=== PATIENT | female | born 1980 | race Hispanic/Latino ===

== ENCOUNTER 2023-11-21 14:34 | Emergency (ER) | payer OTHER, SELFPAY ==
--- NOTE | ~2023-11-21 | CT_ITS ---
EXAMINATION: CT lumbar spine wo con DATE: 11/21/2023 17:47 INDICATION: One day of the lateral lumbar spine pain and midline tenderness TECHNIQUE: Computed tomography (CT) of the lumbar spine was performed without intravenous contrast. A utomated exposure control and iterative reconstruction technique were employed. The dose-length produ ct was 356.57 mGy-cm. COMPARISON: CT abdomen and pelvis dated 09/06/2023 FINDINGS: Alignment is normal. Vertebral body heights are normal. No fracture. Disc heights are normal. There a re disc bulges resulting in mild central canal stenosis at L2-L3 through L4-L5. Mild central disc pro trusion without central canal stenosis at L5-S1. Moderate facet osteoarthritis bilaterally at T11-T12 through L1-L2, on the left at L2-L3 and bilaterally at L5-S1. Mild facet osteoarthritis the remainin g lumbar levels. There is mild neural foraminal stenosis on the right at L2-L3 and bilaterally at L3- L4 and L4-5. 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 Paravertebral soft tissu es are unremarkable. IMPRESSION: 1. Mild lumbar spondylosis. No acute osseous abnormality. Reviewed, dictated and finalized at location A.
[2023-11-21 14:38] VITALS: BP 130/90; PULSE 102; RESP 18; TEMP 36.3; O2SAT 95
--- NOTE | 2023-11-21 16:35 | ED.BACK ---
HPI - Back Pain/Injury General Chief Complaint: Back Pain/Injury Stated Complaint: back pain Time Seen by Provider: 11/21/23 14:50 Source: patient Mode of arrival: ambulatory Limitations: no limitations and language barrier History of Present Illness HPI Narrative: Patient is a 43 y/o female who presents to the ED with c/o back pain. Patient is primarily Sami speaking. Wututu steam gigger was utilized to assist with translation. Patient reports having pain across her lower back and upper buttocks. Reports pain has been intermittent for the past 2 months, but became worse over last few days. She had to leave work early today. Pain worse with movement. She has not tried anything for the pain. Denies abdominal pain, incontinence, numbness. Denies injury. Related Data Allergies Allergy/AdvReac Type Severity Reaction Status Date / Time No Known Allergies Allergy Verified 11/21/23 14:38 Review of Systems Review of Systems: CONSTITUTIONAL: Denies fever, chills, or sweats. GASTROINTESTINAL: Denies incontinence, abdominal pain, nausea, vomiting, or diarrhea. GENITOURINARY: Denies incontinence, dysuria or hematuria. MUSCULOSKELETAL: See HPI. NEUROLOGIC: Denies numbness, or weakness. All systems reviewed & are unremarkable except as noted in HPI and below Exam Narrative: GENERAL: Well appearing, well-nourished, non-toxic, in no acute distress. HEAD: Normocephalic, atraumatic. RESPIRATORY: Airway patent, respirations nonlabored. Clear to auscultation bilaterally, no rales, rhonchi, wheezing. CARDIOVASCULAR: Regular rate and rhythm MUSCULOSKELETAL: Moves all extremities. No gross deformities. Diffuse tenderness throughout lower lumbar paraspinal musculature and diffusely across lumbosacral region. No bony deformities or palpable step-offs. Sensation intact. SKIN: Warm, dry, normal color. NEURO: A&O X3. Speech clear. Cranial nerves II-XII grossly intact. Steady gait. No ataxic movements. PSYCHIATRIC: Appropriate mood and affect. Normal interaction. Course Vital Signs Vital signs: Vital Signs Temperature 97.3 F L 11/21/23 14:38 Pulse Rate 102 H 11/21/23 14:38 Respiratory Rate 18 11/21/23 14:38 Blood Pressure 130/90 11/21/23 14:38 Pulse Oximetry 95 11/21/23 14:38 Oxygen Delivery Room Air 11/21/23 14:38 Temperature 97.3 F L 11/21/23 14:38 Pulse Rate 102 H 11/21/23 14:38 Respiratory Rate 18 11/21/23 14:38 Blood Pressure 130/90 11/21/23 14:38 Pulse Oximetry 95 11/21/23 14:38 Oxygen Delivery Room Air 11/21/23 14:38 MDM - Back Pain/Injury MDM Narrative Medical decision making narrative: Patient?s pain is positional and localized to paraspinal muscles without signs of cord compression or cauda equina. Normal neurologic exams. No red flag symptoms. No fever noted and no significant risk factors for osteomyelitis or spinal epidural abscess. No symptoms or signs to suggest pain is referred from abdominal or source. CT lumbar spine showing mild lumbar spondylosis. No acute fracture. Patient ambulates with a steady gait and is felt to be a reasonable candidate for continued outpatient management. Advised to continue Tylenol/ibuprofen for pain, will rx muscle relaxers for home use. Advised to f/u with PCP for further evaluation. Given return precautions. She agrees w/ plan. D/C in stable condition. Medical Records Attestation: I reviewed the patient's medical records. Lab Data Attestation: I reviewed the patient's lab results. Labs: Lab Results 11/21/23 Range/Units 17:19 POC Urine HCG, Qual Negative POC Ur Preg QC Yes Imaging Data Attestation: I personally reviewed and interpreted this imaging study as follows: Radiologist's impression: ITS Impressions Lumbar Spine CT 11/21/23 18:08 IMPRESSION: 1. Mild lumbar spondylosis. No acute osseous abnormality. Discharge Plan Discharge Clinical Impression: Strain of lumbar region Qualifiers: [place]
[2023-11-21] MEDS: ACETAMINOPHEN 500 MG TABLET 1000 MG PO (16:57)
[2023-11-21] MEDS: KETOROLAC (*BKC) 60 MG/2 ML VIAL IM (16:58)
[2023-11-21 17:21] LABS: BEDSIDEPREGUCG Negative
== END 2023-11-21 18:52 | disposition home or self-care (01) ==
PROVIDERS: Emergency Provider Physician Assistant; PCP Registered Nurse
DX: S39.012A Strain of muscle, fascia and tendon of lower back, initial encounter (principal); M47.816 Spondylosis without myelopathy or radiculopathy, lumbar region; X58.XXXA Exposure to other specified factors, initial encounter
CPT/HCPCS: 72131; 81025; 96372; 99284; A9270; J1885

== ENCOUNTER 2024-02-10 13:43 | Emergency (ER) | payer OTHER, SELFPAY ==
--- NOTE | ~2024-02-10 | XR_ITS ---
XR abdomen/kub 1V 02/10/2024 15:10 INDICATION: Left flank pain TECHNIQUE: KUB COMPARISON: None FINDINGS: Bowel gas pattern is normal. There is no evidence of free air, mass, organomegaly, ascites or obstruction. No abnormal calculi are seen. The bones appear intact. IMPRESSION: 1: No acute abdominal abnormality identified. Reviewed, dictated and finalized at location B.
[2024-02-10 13:55] VITALS: BP 91/71; PULSE 85; RESP 16; TEMP 37; O2SAT 99
--- NOTE | 2024-02-10 14:40 | ED.ABDPAIN ---
HPI - Abdominal Pain General Chief Complaint: Abdominal Pain Stated Complaint: stomach pain Time Seen by Provider: 02/10/24 14:41 Source: patient and RN notes reviewed Mode of arrival: ambulatory Limitations: language barrier (Aboriginal Liaison Officer used) History of Present Illness HPI narrative: 43-year-old female presents with concern for abdominal pain.. Reports several day history of upper and lower abdominal pain and tenderness. She denies any exacerbating or relieving factors. She denies nausea, vomiting, diarrhea, constipation. Reports her last bowel movement was this morning. She reports low back pain. She denies dysuria, frequency, urgency. She denies fever, chills, sweats. Denies any injury. Reports history of cholecystectomy. She reports feeling bloated MD elicited complaint: abdominal pain Related Data Allergies Allergy/AdvReac Type Severity Reaction Status Date / Time No Known Allergies Allergy Verified 02/10/24 13:51 Review of Systems Review of Systems: CONSTITUTIONAL: Denies malaise, chills, sweats, or fever. ENT: Denies rhinorrhea, congestion, sinus pain, otalgia or sore throat. CARDIOVASCULAR: Denies chest pain, palpitations, or edema. RESPIRATORY: Denies cough or dyspnea. GASTROINTESTINAL: Reports generalized abdominal pain. Denies nausea, vomiting, diarrhea, bloody, or mucous stools. GENITOURINARY: Denies dysuria or hematuria. MUSCULOSKELETAL: Denies myalgia. Reports low back pain NEUROLOGIC: Denies headache. All systems reviewed & are unremarkable except as noted in HPI and below PMFSH Comments At time of signature, agree with nursing past medical, surgical, social and family history. There is no relevant family history pertinent to the presenting complaint Exam Narrative: GENERAL: Well-appearing, well-nourished, and in no acute distress. HEAD: Normocephalic, atraumatic. EYES: PERRLA, conjunctivae clear, and EOMI. ENT: Nares clear, turbinates pink, no rhinorrhea or epistaxis. Mucous membranes moist. Oropharynx without edema, erythema, or lesions. Tonsils not enlarged and without exudate. NECK: Supple. No lymphadenopathy CHEST: Speaks in full sentences. No respiratory distress. HEART: Regular rate and rhythm. ABDOMEN: Soft, obese, nondistended, general tenderness, worse in the LLQ. No guarding, rebound tenderness, or rigidity. No pulsatile masses. Bowel sounds present in all four quadrants. No organomegaly. No periumbilical tenderness. No Supra public tenderness or distension. No hernia noted. No surface trauma. SKIN: Warm, dry, no rash. NEURO: Alert and oriented x3. PSYCH: Normal mood and affect Course Course Emergency Course: Discussed going to the emergency room for further evaluation of symptoms, patient will not go to the emergency room this time. I will treat her to the best of my ability and given reasons to go to the emergency room if symptoms worsen or change. Anticipatory guidance given. Patient agrees to follow-up as directed and is aware of reasons to seek care at the emergency department. Portions of this record may have been created with voice recognition software Level of Care: Express Care Visit Vital Signs Vital signs: Vital Signs Temperature 98.6 F 02/10/24 13:55 Pulse Rate 85 02/10/24 13:55 Respiratory Rate 16 02/10/24 13:55 Blood Pressure 91/71 L 02/10/24 13:55 Pulse Oximetry 99 02/10/24 13:55 Oxygen Delivery Room Air 02/10/24 13:55 Temperature 98.6 F 02/10/24 13:55 Pulse Rate 85 02/10/24 13:55 Respiratory Rate 16 02/10/24 13:55 Blood Pressure 91/71 L 02/10/24 13:55 Pulse Oximetry 99 02/10/24 13:55 Oxygen Delivery Room Air 02/10/24 13:55 Reviewed. MDM - Abdominal Pain MDM Narrative Medical decision making narrative: Patient is nontoxic appearing and in no acute distress Differential Diagnosis Differential diagnosis: Likely abdominal pain, acute appendicitis, calculus of kidney, diverticulitis, gastroenteritis a
[2024-02-10 15:10] LABS: EDUAAPPEAR Clear; EDUABILI Negative (Negative); EDUABLOOD Trace (Negative); EDUACOLOR1 Dark; EDUAGLUCOSE Negative (Negative); EDUAKETONE Negative (Negative); EDUALEUKO Negative (Negative); EDUANITRATE Negative (Negative); EDUAPH 6.5; EDUAPROTEIN Negative (Negative)
[2024-02-10 15:45] VITALS: BP 100/80
== END 2024-02-10 15:45 | disposition home or self-care (01) ==
PROVIDERS: Emergency Provider Nurse Practitioner; PCP Registered Nurse
DX: R10.10 Upper abdominal pain, unspecified (principal); R10.30 Lower abdominal pain, unspecified
CPT/HCPCS: 74018; 81003; 99213; G0463

== ENCOUNTER 2024-05-22 16:30 | Emergency (ER) | payer OTHER, SELFPAY ==
--- NOTE | ~2024-05-22 | XR_ITS ---
EXAMINATION: XR abdomen/kub 1V DATE: 05/22/2024 17:15 INDICATION: Generalized abdominal pain. TECHNIQUE: A supine view of the abdomen was obtained. COMPARISON: CT abdomen and pelvis 09/06/2023 FINDINGS: There are no dilated loops of bowel. There is a large volume of stool in the colon. IMPRESSION: 1. Nonobstructive bowel gas pattern. Reviewed, dictated and finalized at location A. CLOSER HELPER
[2024-05-22 16:40] VITALS: BP 116/75; PULSE 87; RESP 16; TEMP 36.9; O2SAT 100
--- NOTE | 2024-05-22 16:58 | ED.ABDPAIN ---
HPI - Abdominal Pain General Chief Complaint: Abdominal Pain Stated Complaint: Abdominal Pain Time Seen by Provider: 05/22/24 16:33 Source: patient Mode of arrival: ambulatory Limitations: no limitations History of Present Illness HPI narrative: Glenna is a 44-year-old female patient presenting to the clinic today with complaints of generalized abdominal pain. She denies any nausea, vomiting, or diarrhea. States last bowel movement was today and very hard. States she tried to go this morning was unable to go so she attempted to go later in the day and it was very hard to pass stool. Is able to pass gas. Last menstrual period was 2 weeks ago. Denies any vaginal discharge or any urinary symptoms. No fevers, chills, or body aches. Related Data Allergies Allergy/AdvReac Type Severity Reaction Status Date / Time No Known Allergies Allergy Verified 05/22/24 16:45 Review of Systems Review of Systems: Pertinent positives per HPI. Patient denies any fever, chills, rash, headache, visual changes, dizziness, cough, runny nose, sore throat, shortness of breath, chest pain, palpitations, nausea, vomiting, diarrhea, constipation, abdominal pain, or any urinary issues. PMFSH Comments At the time of my signature, I reviewed and agree with the nursing past medical, surgical, social, and family history. There is no relevant family history pertinent to the patient complaint. Exam Narrative: General: Well-developed, well nourished, in no apparent distress. Head: Normocephalic, atraumatic. Cardio: Regular rate and rhythm, s1 and s2 normal, no murmur appreciated. Resp: Clear to auscultation bilaterally, no rhonchi, rales, wheezing or rubs. Abdomen: Soft, pliable, bowel sounds present in all quadrants, generalized tender to palpation, no organomegly, no CVAT tenderness. Course Course Emergency Course: Portions of this record may have been created with voice recognition software. Level of Care: Express Care Visit Vital Signs Vital signs: Vital Signs Temperature 36.9 C 05/22/24 16:40 Pulse Rate 87 05/22/24 16:40 Respiratory Rate 16 05/22/24 16:40 Blood Pressure 116/75 05/22/24 16:40 Pulse Oximetry 100 05/22/24 16:40 Oxygen Delivery Room Air 05/22/24 16:40 Temperature 36.9 C 05/22/24 16:40 Pulse Rate 87 05/22/24 16:40 Respiratory Rate 16 05/22/24 16:40 Blood Pressure 116/75 05/22/24 16:40 Pulse Oximetry 100 05/22/24 16:40 Oxygen Delivery Room Air 05/22/24 16:40 Vital signs reviewed MDM - Abdominal Pain MDM Narrative Medical decision making narrative: At the time of visit patient is resting comfortably on the exam table. Patient appears to be nontoxic. Diagnostics: KUB x-ray was performed and shows constipation. Plan: Prescription for bisacodyl, magnesium citrate, and miralax. Supportive measures were discussed with the patient and they voiced understanding discharge instructions and agrees to treatment plan. Return precautions reviewed Differential Diagnosis Differential diagnosis: Likely abdominal pain, acute appendicitis, calculus of kidney, constipation, diverticulitis, endometriosis, gastroenteritis, pancreatitis and small bowel obstruction Imaging Data Radiologist's impression: ITS Impressions Abdomen X-Ray 05/22/24 17:17 IMPRESSION: 1. Nonobstructive bowel gas pattern. Discharge Plan Discharge Clinical Impression: Constipation Qualifiers: Constipation type: unspecified constipation type Qualified Code(s): K59.00 - Constipation, unspecified Patient Disposition: Home, Self-Care Condition: Stable Instructions: Antibiotic Form, Constipation (ED) Additional Instructions: X-ray shows a large amount stool in her colon-constipation Increase fluids and stay well hydrated Increase fiber in your diet. Drink 1/2 bottle of magnesium citrate and take 10mg of bisacodyl-if no results and 1 hour may drink other half of magnesium citrate Take MiraLax daily-mix in 8 oz of water or juice. Follow-up with your doctor later this week or early next week. La radiograf?a muestra olivia gran cantidad de heces en el colon: estre?imiento. Aumente los l?quidos y mant?ngase compa hidratado. Aumenta la fibra en tu dieta. Keshia 1/2 botella de citrato de magnesio y tome 10 mg de bisacodilo; si no hay resultados y 1 hora puede beber la otra mitad de citrato de magnesio. [place] MiraLax diariamente, mezcle en 8 oz de agua o jugo. Mily un seguimiento con paulino m?dico a finales de esta semana o principios de la pr?xima. Patient Language: Cameroonian Prescriptions: New polyethylene glycol 3350 [Miralax] 17 gram powder in packet 17 g PO DAILY 30 Days Qty: 30 0RF magnesium citrate [Citrate of Magnesia] Solution 300 ml PO DAILY PRN (Reason: constipation) 1 Days Qty: 296 0RF bisacodyl 5 mg tablet 10 mg PO ONCE PRN (Reason: constipation) Qty: 2 0RF Follow-up/Referrals: Dannielle,ELVIN Ford [Primary Care Provider] - Time of Disposition: 17:29 Quality NIHSS Nursing Documentation ED NIHSS nursing documentation: reviewed/agree
== END 2024-05-22 17:40 | disposition home or self-care (01) ==
PROVIDERS: Emergency Provider Nurse Practitioner Family; PCP Registered Nurse
DX: K59.00 Constipation, unspecified (principal)
CPT/HCPCS: 74018; 99213; G0463

== ENCOUNTER 2024-06-19 08:22 | Emergency (ER) | payer OTHER, SELFPAY ==
[2024-06-19 08:32] VITALS: BP 116/60; PULSE 87; RESP 16; O2SAT 99
--- NOTE | 2024-06-19 08:39 | ED.EAR ---
HPI - Ear Problem General Chief complaint: Ear Stated complaint: left ear pain Time Seen by Provider: 06/19/24 08:39 Source: patient, RN notes reviewed and old records reviewed Mode of arrival: ambulatory Limitations: no limitations History of Present Illness HPI Narrative: Patient presents with complaints of left ear pain that began 2 days ago. She reports some associated nasal discharge. She denies any fever, chills, sweats. She denies any injury or trauma. She has been taking ibuprofen with minimal results Related Data Allergies Allergy/AdvReac Type Severity Reaction Status Date / Time No Known Allergies Allergy Verified 06/19/24 08:31 Review of Systems Review of Systems: All systems reviewed & are unremarkable except as noted in HPI and below Constitutional: Constitutional: Reports no additional constitutional complaints ENT: Reports system reviewed and no additional complaints, except as documented, Reports otalgia and Reports nasal discharge Cardiovascular: Cardiovascular: Reports no additional cardiovascular complaints Respiratory: Respiratory: Reports no additional respiratory complaints Gastrointestinal: Gastrointestinal: Reports no additional gastrointestinal complaints PMFSH Comments At the time of my signature, I reviewed and agree with the nursing past medical, surgical, social, and family history. There is no relevant family history pertinent to the patient complaint. Exam Const: General: cooperative, no acute distress, alert and awake Orientation/consciousness: oriented to person, oriented to place and oriented to time HENMT: Head: normal to inspection Ears: TM abnormal dull on the right, erythematous on the left and with fluid behind the TM bilateral Resp: Effort & Inspection: normal respiratory effort and able to speak in complete sentences Auscultation: clear to auscultation bilaterally, no crackles, no rales, no rhonchi and no wheezes Cardio: Palpation: normal PMI Rate: regular rate Rhythm: regular rhythm Heart sounds: S1 normal heart sound present and S2 normal heart sound present Neuro: General: oriented to person, oriented to place and oriented to time Cranial nerves: Yes CN's II-XII intact bilaterally Psych: Appearance: grossly normal Thought process: Normal thought process present Insight: Good insight present (Psych) Judgement: Good judgement present (Psych) Course Course Level of Care: Express Care Visit Vital Signs Vital signs: Vital Signs Pulse Rate 87 06/19/24 08:32 Respiratory Rate 16 06/19/24 08:32 Blood Pressure 116/60 06/19/24 08:32 Pulse Oximetry 99 06/19/24 08:32 Oxygen Delivery Room Air 06/19/24 08:32 Pulse Rate 87 06/19/24 08:32 Respiratory Rate 16 06/19/24 08:32 Blood Pressure 116/60 06/19/24 08:32 Pulse Oximetry 99 06/19/24 08:32 Oxygen Delivery Room Air 06/19/24 08:32 Reviewed Medical Decision Making MDM Narrative Medical decision making narrative: History and exam consistent with otitis media. Patient nontoxic appearing, stable for discharge home on p.o. antibiotic therapy with steroid burst Discharge instructions reviewed with patient, as well as provided in writing per nursing staff. The instructions also include specific and strict return/GO TO THE ER as well as f/u information. All questions have been answered, and the patient deny any further questions with discharge and discharge plan. Some parts of this dictation were generated by voice recognition software and may contain typographical and/or grammatical inaccuracies. Differential Diagnosis Differential Diagnosis: Otalgia, otitis externa Medical Records Medical records reviewed: Yes I reviewed the external patient's medical records. Vital Signs Vital Signs: Vital Signs Pulse Rate 87 06/19/24 08:32 Respiratory Rate 16 06/19/24 08:32 Blood Pressure 116/60 06/19/24 08:32 Pulse Oximetry 99 06/19/24 08:32 Oxygen Delivery Room Air 06/19/24 08:32 Pulse Rate 87 06/19/24 08:32 Respiratory Rate 16 06/19/24 08:32 Blood Pressure 116/60 06/19/24 08:32 Pulse Oximetry 99 06/19/24 08:32 Oxygen Delivery Room Air 06/19/24 08:32 reviewed Lab Data Lab results reviewed: Yes I reviewed the patient's lab results. Lab results narrative: reviewed Discharge Plan Discharge Clinical Impression: Otitis media Qualifiers: Otitis media type: suppurative Chronicity: acute Laterality: left Recurrence: not specified as recurrent Spontaneous tympanic membrane rupture: without spontaneous rupture Qualified Code(s): H66.002 - Acute suppurative otitis media without spontaneous rupture of ear drum, left ear Patient Disposition: Home, Self-Care Condition: Stable Instructions: Antibiotic Form, Earache (ED) Additional Instructions: Take medication as prescribed. Follow-up with primary care provider. Emergency department for new or worse symptoms Patient Language: Ukrainian Prescriptions: New amoxicillin-pot clavulanate 875-125 mg tablet 1 tablet PO Q12H Qty: 20 0RF prednisone 50 mg tablet 50 mg PO DAILY Qty: 5 0RF No Action polyethylene glycol 3350 [Miralax] 17 gram powder in packet 17 g PO DAILY 30 Days Qty: 30 0RF magnesium citrate [Citrate of Magnesia] Solution 300 ml PO DAILY PRN (Reason: constipation) 1 Days Qty: 296 0RF bisacodyl 5 mg tablet 10 mg PO ONCE PRN (Reason: constipation) Qty: 2 0RF Follow-up/Referrals: Dannielle,ELVIN Ford [Primary Care Provider] - 2 Weeks Stand Alone Forms: Work/School Release IP Time of Disposition: 08:48
== END 2024-06-19 08:55 | disposition home or self-care (01) ==
PROVIDERS: Emergency Provider Nurse Practitioner Family; PCP Registered Nurse
DX: H66.002 Acute suppurative otitis media without spontaneous rupture of ear drum, left ear (principal)
CPT/HCPCS: 99213; G0463

== ENCOUNTER 2024-06-29 15:38 | Emergency (ER) | payer OTHER, SELFPAY ==
--- NOTE | ~2024-06-29 | XR_ITS ---
XR sacrum coccyx min 2V Ordering provider: Felisha Salazar PA-C History: . fall down stairs, tailbone pain . Comparison: June 29, 2024 FINDINGS: BONES: Possible lucency in the coccyx. Otherwise, No dislocation. JOINTS: The sacroiliac joint spaces are normal. SOFT TISSUES: Normal. IMPRESSION: Lucency in the coccyx which may indicate a fracture. Clinical correlation and follow-up advised Reviewed, dictated and finalized at location A. ONAL COUNSELOR IMPRESSION: Lucency in the coccyx which may indicate a fracture. Clinical correlation and f ollow-up advised
--- NOTE | ~2024-06-29 | XR_ITS ---
XR hip RT 2V w AP pelvis Ordering provider: Bhavani Bass APRN History: . hip pain, tailbone pain s/p fall . Comparison: None. FINDINGS: BONES: No acute fracture or dislocation. HIP JOINT SPACES: Normal. SACROILIAC JOINT SPACES/LUMBAR SPINE: The sacroiliac joint spaces are normal. Normal visualized lower lumbar spine. PUBIC SYMPHYSIS: Normal. SOFT TISSUES: Normal. IMPRESSION: No acute osseous abnormality pelvis and right hip. Reviewed, dictated and finalized at location A. [employer] PLACEMENT EQUIPMENT OPERATOR
--- OUTSIDE RECORDS SUMMARY | 2024-06-29 15:40 | XMS_ITS | Data Portability ---
Author Organization [facility] YAHIRJaimee Niet[place]Cypress Landing H Address [address] [place] [address] Care Team Providers Care Bolt Machine Operator Name Role Phone DANNIELLELILIANA Primary Care Provider Assessment No assessment recorded. Plan of Treatment Reminders Order Date Submit Date Provider Last Modified By Organization Details Last Modified Time Details Appointments None record ed. Lab cytolo gy report , thin prep, smear or scrapi ng, cervic al or vagina l 2023 024 [facility], [address] [place] [address], [facility] [address], [place], [address], 4 13:11:17 urinal ysis, dipsti ck 2023 024 ALECIA In-Office Order, Internal Use Only DO Not Attach Compendium DO Not Attach Compendium, Do Not Delete/merge, [id number] 15:29:25 cultur e, urine 2023 024 [facility], [address] [place] [address], [address], [place], [address], 4 03:36:53 urinal ysis, dipsti ck 2023 024 [email or web address] In-Office Order, Internal Use Only DO Not Attach Compendium DO Not Attach Compendium, Do Not Delete/merge, [id number] 16:30:33 cultur e, urine 2023 024 [facility], [address] [place] [address], [address], [place], [address], 13:12:17 Referral None record ed. Procedures None record ed. Surgeries None record ed. Imaging None record ed. Medication Orders Zithro max Z-Ramírez 250 mg tablet 2023 [place] [employer] [facility], [address] [place] [address], [id number], 4 14:43:55 Medrol (Ramírez) 4 mg tablet s in a dose pack 2023 [facility], [address] [place] [address], [id number], 4 14:43:56 meloxi cam 15 mg tablet 2023 [place] [facility], [address] [place] [address], [id number], 4 14:43:54 meloxi cam 15 mg tablet 2023 [place] [employer] [facility], [address] [place] [address], [id number], 4 17:59:25 Macrob id 100 mg capsul e 2023 [place] [employer] [facility], [address] [place] [address], [id number], 4 16:48:18 lorata dine 10 mg tablet 2023 [place] [employer] [facility], [address] [place] [address], [id number], 4 15:31:28 flutic asone propio vernon 50 mcg/ac tuatio n nasal spray, suspen deja 2023 [place] [employer] [facility], [address] [place] [address], [id number], 15:31:34 meloxi cam 15 mg tablet [facility]23 [facility], [address] [place] [address], [id number], 15:31:28 cyclob enzapr ine 10 mg tablet 2023 024 [facility], [address] [place] [address], [id number], 16:08:59 Macrob id 100 mg capsul e [facility] [address] [place] [address], [id number], 16:33:12 Patient TargetsNo targets recorded. Patient Instructions Encounter Date Encounter Id Patient Instructions Last Modified By Organization Details Last Modified Time 09/29/2023 [id number] espondil lisis y espondilolistesis: ejercicios - [spondylolysis and spondylolisthesis: exercises] yarauz Not available 09/29/2023 16:32:41 Cuando sona ghosh de peso: Instrucciones de cuidado - [When You Want to Lose Weight: Care Instructions] [email or web address] Not available 09/29/2023 16:30:31 A healthy lifest yle: care instructions [email or web address] Not available 09/29/2023 16:30:31 dolor abdominal: instrucciones de cuidado - [abdominal pain: care instructions] [email or web address] Not available 09/29/2023 16:30:31 increase water i ntake general hygiene measures take all your medicines as directed if symptoms do not improve or resolve make a follow up appointment stretching exercises 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 [employer] ice to back or heat to low back as necessary may use NSAIDs such as Ibuprofen with food as necessary if no contraindications [email or web address] Not available 09/29/2023 16:31:29 11/17/2023 [id number] dolor al orinar (disuria): instrucciones de cuidado - [painful urination (dysuria): care instructions] [email or web address] Not available 11/17/2023 15:23:41 A healthy lifest yle: care instructions [email or web address] Not available 11/17/2023 15:23:41 sinusitis cr chantel: instrucciones de cuidado - [chronic sinusitis: care instructions] [email or web address] Not available 11/17/2023 15:23:41 cuidado de la es palda y prevenci n de lesiones: instrucciones de cuidado - [back care and preventing injuries: care instructions] [email or web address] Not available 11/17/2023 15:23:41 enfermedad de re flujo gastroesof gico (GERD): instrucciones de cuidado - [gastroesophageal reflux disease (GERD): care instructions] [email or web address] Not available 11/17/2023 15:25:31 12/19/2023 [id number] A healthy lifest yle: care instructions [email or web address] Not available 12/19/2023 17:19:24 cuidado de la es palda y prevenci n de lesiones: instrucciones de cuidado - [back care and preventing injuries: care instructions] [email or web address] Not available 12/19/2023 17:19:24 artritis: instrucciones de cuidado - [arthritis: care instructions] [email or web address] Not available 12/19/2023 17:19:24 artritis de marii ra: ejercicios - [hip arthritis: exercises] [email or web address] Not available 12/19/2023 17:19:24 artritis de cuel lo: ejercicios - [neck arthritis: exercises] yarauz Not available 12/19/2023 17:19:23 artritis de pie: ejercicios - [foot arthritis: exercises] [email or web address] Not available 12/19/2023 17:19:24 artritis de la p lolita baja de la espalda: ejercicios - [low back arthritis: exercises] [email or web address] Not available 12/19/2023 17:19:24 Lose weight stretching exercises avoid heavy lifting or activities that increase pain level ice/heat as necessary yarauz Not available 12/19/2023 17:19:07 02/03/2024 [id number] A healthy lifest yle: care instructions [email or web address] Not available 02/03/2024 17:30:03 You had your pap smear completed today. You should have a well woman exam each year. If your pap smear comes back normal and does not show any HPV ( human papilloma virus), you will not need another pap smear for 5 years. Do NOT douche as it disturbs the natural balance of bacteria in the vagina and can cause infection. Avoid scented soaps or lotions. Use a basic unscented soap for only the outer skin around your vagina. Wear cotton underwear, avoid thongs, avoid spandex, leggings and wear panty liners daily. You can try probiotics. Use a condom with EVERY sexual encounter to minimize your risk for sexually transmitted infection and unplanned . [email or web address] Not available 02/03/2024 17:13:47 03/20/2024 [id number] vacuna contra la influenza (gripe): instrucciones de cuidado - [influenza (flu) vaccine: care instructions] [email or web address] Not available 03/20/2024 16:27:47 A healthy lifest yle: care instructions [email or web address] Not available 03/20/2024 16:24:51 Sinusitis aguda: Instrucciones de cuidado - [Acute Sinusitis: Care Instructions] [email or web address] Not available 03/20/2024 16:24:51 cuidado de la es palda y prevenci n de lesiones: instrucciones de cuidado - [back care and preventing injuries: care instructions] [email or web address] Not available 03/20/2024 16:24:51 artritis: instrucciones de cuidado - [arthritis: care instructions] [email or web address] Not available 03/20/2024 16:24:51 artritis de marii ra: ejercicios - [hip arthritis: exercises] [email or web address] Not available 03/20/2024 16:24:50 artritis de cuel lo: ejercicios - [neck arthritis: exercises] [email or web address] Not available 03/20/2024 16:24:50 artritis de pie: ejercicios - [foot arthritis: exercises] [email or web address] Not available 03/20/2024 16:24:50 artritis de la p lolita baja de la espalda: ejercicios - [low back arthritis: exercises] [email or web address] Not available 03/20/2024 16:24:51 aprenda acerca d el peso saludable - [learning about healthy weight] [email or web address] Not available 03/20/2024 16:24:51 ndice de masa corporal: instrucciones de cuidado - [body mass index: care instructions] [email or web address] Not available 03/20/2024 16:24:51 calcium 600mg 1- 2 daily with vitamin D3 1000 yarauz Not available 03/20/2024 16:22:41 Lose weight stretching exercises avoid heavy lifting or activities that increase pain level ice/heat as necessary influenza vaccine yarauz Not available 03/20/2024 16:19:53 Reason for Referral None Reported. Results Created Date Observation Date Name Description Value Unit Range Abnormal Flag Note LastModifiedBy Organization Detail LastModifiedTime 09/29/19 24 10/04/2023 URINE CULTU RE, JOSEPH NE urine culture, routine FINAL REPORT abnormal Not Available [facility] ([facility]) [address] [facility] [address], [place], [address], 10/04/2023 13:12:17 09/29/19 24 10/04/2023 URINE CULTU REJOSEPH NE result 1 ESCHER ICHIA COLI abnormal 25,00 0-50, 000 colon y formi ng units per mL Cefaz carlitos <=4 ug/mL Cefaz carlitos with an JAY JAY <=16 predi cts susce ptibi lity to the oral agent s cefac monty, cefdi cherry, cefpo doxim e, cefpr ozil, cefur oxime , cepha lexin , and lorac arbef when used for thera py of uncom plica eliz urina ry tract infec tions due to E. coli, Klebs iella pneum oniae , and Prote us mirab ilis. Not Available [facility] ([facility]) [address] [facility] [facility] [address], [place], [address], 10/04/2023 13:12:17 09/29/19 24 10/04/2023 URINE CULTU REJOSEPH NE antimicrobia l susceptibili ty COMMEN T S = Susce ptibl e; I = Inter media te; R = Resis tant P = Posit paulette; N = Negat paulette MICS are expre ssed in micro grams per mL Antib iotic RSLT# 1 RSLT# 2 RSLT# 3 RSLT# 4 Amoxi cilli n/Cla vulan ic Acid S Ampic illin S Cefep nadira S Ceftr iaxon e S Cefur oxime S Ertap enem S Genta micin S Imipe nem S Levof loxac in I Merop enem S Nitro furan toin S Piper acill in/Ta zobac kimball S Tetra cycli ne R Tobra mycin S Trime thopr im/Gilliam lfa R Not Available [facility] ([facility]) [address] [facility] [facility] [address], [place], [address], 10/04/2023 13:12:17 09/29/19 24 09/29/2023 urina lysis , dipst ick Leukocytes Small Not Available In-Offi ce Order Internal Use Only DO Not Attach Compendium DO Not Attach Compendium, Do Not Delete/merge, [id number] 09/29/2023 16:00:01 09/29/19 24 09/29/2023 urina lysis , dipst ick Nitrite negati ve Not Available In-Office Order Internal Use Only DO Not Attach Compendium DO Not Attach Compendium, Do Not Delete/merge, [id number] 09/29/2023 16:00:01 09/29/19 24 09/29/2023 urina lysis , dipst ick Urobilinogen .2 Not Available In-Of fice Order Internal Use Only DO Not Attach Compendium DO Not Attach Compendium, Do Not Delete/merge, 09/29/2023 16:00:01 09/29/19 24 09/29/2023 urina lysis , dipst ick Protein Negati ve Not Available In-Office Order Internal Use Only DO Not Attach Compendium DO Not Attach Compendium, Do Not Delete/merge, [id number] 09/29/2023 16:00:01 09/29/19 24 09/29/2023 urina lysis , dipst ick pH 6.0 Not Available In-Office Order Internal Use Only DO Not Attach Compendium DO Not Attach Compendium, Do Not Delete/merge, 09/29/2023 16:00:01 09/29/19 24 09/29/2023 urina lysis , dipst ick Blood Non-He molyze d: Trace Not Available In-Office Order Internal Use Only DO Not Attach Compendium DO Not Attach Compendium, Do Not Delete/merge, 09/29/2023 16:00:09/29/19 24 09/29/2023 urina lysis , dipst ick Specific [place] 1.025 Not Available In-Off ice Order Internal Use Only DO Not Attach Compendium DO Not Attach Compendium, Do Not Delete/merge, 09/29/2023 16:00:01 09/29/19 24 09/29/2023 urina lysis , dipst ick Ketone Negati ve Not Available In-Office Order Internal Use Only DO Not Attach Compendium DO Not Attach Compendium, Do Not Delete/merge, 09/29/2023 16:00:01 09/29/19 24 09/29/2023 urina lysis , dipst ick Bilirubin Negati ve Not Available In-Office Order Internal Use Only DO Not Attach Compendium DO Not Attach Compendium, Do Not Delete/merge, 09/29/2023 16:00:01 09/29/19 24 09/29/2023 urina lysis , dipst ick Glucose Negati ve Not Available In-Office Order Internal Use Only DO Not Attach Compendium DO Not Attach Compendium, Do Not Delete/merge, 09/29/2023 16:00:01 09/29/19 24 09/29/2023 urina lysis , dipst ick Appearance Clear Not Available In-Offi ce Order Internal Use Only DO Not Attach Compendium DO Not Attach Compendium, Do Not Delete/merge, 09/29/2023 16:00:01 09/29/19 24 09/29/2023 urina lysis , dipst ick Color Yellow Not Available In-Office Order Internal Use Only DO Not Attach Compendium DO Not Attach Compendium, Do Not Delete/merge, 09/29/2023 16:00:01 11/17/19 24 11/19/2023 URINE CULTU RE, ROUTI NE urine culture, routine FINAL REPORT Not Available [facility] ([facility]) [address], [place], [address], 11/19/2023 03:36:52 11/17/19 24 11/19/2023 URINE CULTU RE, ROUTI NE result 1 NO GROWTH Not Available [facility] ([facility]) [address], [place], [address], 11/19/2023 03:36:52 11/17/19 24 11/17/2023 urina lysis , dipst ick Leukocytes Negati ve Not Available In-Office Order Internal Use Only DO Not Attach Compendium DO Not Attach Compendium, Do Not Delete/merge, [id number] 11/17/2023 15:13:43 11/17/19 24 11/17/2023 urina lysis , dipst ick Nitrite negati ve Not Available In-Office Order Internal Use Only DO Not Attach Compendium DO Not Attach Compendium, Do Not Delete/merge, 11/17/2023 15:13:43 11/17/19 24 11/17/2023 urina lysis , dipst ick Urobilinogen .2 Not Available In-Of fice Order Internal Use Only DO Not Attach Compendium DO Not Attach Compendium, Do Not Delete/merge, [id number] 11/17/2023 15:13:43 11/17/19 24 11/17/2023 urina lysis , dipst ick Protein Negati ve Not Available In-Office Order Internal Use Only DO Not Attach Compendium DO Not Attach Compendium, Do Not Delete/merge, [id number] 11/17/2023 15:13:43 11/17/19 24 11/17/2023 urina lysis , dipst ick pH 7.0 Not Available In-Office Order Internal Use Only DO Not Attach Compendium DO Not Attach Compendium, Do Not Delete/merge, [id number] 11/17/2023 15:13:43 11/17/19 24 11/17/2023 urina lysis , dipst ick Blood Non-He molyze d: Trace Not Available In-Office Order Internal Use Only DO Not Attach Compendium DO Not Attach Compendium, Do Not Delete/merge, 11/17/2023 15:13:43 11/17/19 24 11/17/2023 urina lysis , dipst ick Specific [place] 1.015 Not Available In-Off ice Order Internal Use Only DO Not Attach Compendium DO Not Attach Compendium, Do Not Delete/merge, 11/17/2023 15:13:43 11/17/19 24 11/17/2023 urina lysis , dipst ick Ketone Negati ve Not Available In-Office Order Internal Use Only DO Not Attach Compendium DO Not Attach Compendium, Do Not Delete/merge, 11/17/2023 15:13:43 11/17/19 24 11/17/2023 urina lysis , dipst ick Bilirubin Negati ve Not Available In-Office Order Internal Use Only DO Not Attach Compendium DO Not Attach Compendium, Do Not Delete/merge, 11/17/2023 15:13:43 11/17/19 24 11/17/2023 urina lysis , dipst ick Glucose Negati ve Not Available In-Office Order Internal Use Only DO Not Attach Compendium DO Not Attach Compendium, Do Not Delete/merge, 11/17/2023 15:13:43 11/17/19 24 11/17/2023 urina lysis , dipst ick Appearance Clear Not Available In-Offi ce Order Internal Use Only DO Not Attach Compendium DO Not Attach Compendium, Do Not Delete/merge, 11/17/2023 15:13:43 11/17/19 24 11/17/2023 urina lysis , dipst ick Color Yellow Not Available In-Office Order Internal Use Only DO Not Attach Compendium DO Not Attach Compendium, Do Not Delete/merge, 11/17/2023 15:13:43 02/03/20 24 02/06/2024 SPECI MEN STATU S REPOR T specimen status report TNP Test not perfo rmed. No serum gel recei joel. TEST: 27589 5 RPR, Rfx Qn RPR/[place] [address] 5 HIV Ab/p2 4 Ag with Refle x CONTA CTED [facility] AT YOUR FACIL ITY ON 02/05 . Not Available [facility] ([facility]) [address] [place], [address], 02/06/2024 13:09:47 02/03/20 24 02/06/2024 RPR, RFX QN RPR/C ONFIR M TP RPR - Test not perfo rmed. No serum gel recei joel. CONTA CTED [facility] AT YOUR FACIL ITY ON 02/05 . Not Available [facility] ([facility]) [address], [place], [address], 02/06/2024 13:09:47 02/03/20 24 02/06/2024 HIV AB/P2 4 AG WITH REFLE X HIV Ab/P24 Ag screen - Test not perfo rmed. No serum gel recei joel. CONTA CTED [facility] AT YOUR FACIL ITY ON 02/05 . Not Available [facility] ([facility]) [address], [place], [address], 02/06/2024 13:09:48 02/03/20 24 02/08/2024 IGP, APTIM A HPV, RFX 16/18 ,45 HPV aptima NEGATI VE negati ve This nucle ic acid ampli ficat ion test detec ts fourt een high- risk HPV types (16,1 8,31, 33,35 ,39,4 5,51, 52,56 ,58,5 9,66, 68) witho ut diffe renti ation . Not Available [facility] ([facility]) [address], [place], [address], 02/10/2024 13:11:17 02/03/20 24 02/10/2024 IGP, APTIM A HPV, RFX 16/18 ,45 diagnosis: COMMEN T NEGAT PAULETTE FOR INTRA EPITH ELIAL LESIO N OR SHAILESH ESPINAL . Not Available [facility] ([facility]) [address], [place], [address], 02/10/2024 13:11:17 02/03/2002/10/2024 IGP, APTIM A HPV, RFX 16/18 ,45 specimen adequacy: CHRIST Winn Satis facto ry for evalu ation . Endoc ervic al and/o r squam ous metap lasti c cells (endo cervi sergio compo nent) are prese nt. Not Available [facility] ([facility]) [address], [place], [address], 02/10/2024 13:11:17 02/03/2002/10/2024 IGP, APTIM A HPV, RFX 16/18 ,45 clinician provided ICD10: CHRIST Winn Z12.4 Not Available [facility] ([facility]) [address], [place], [address], 02/10/2024 13:11:17 02/03/2002/10/2024 IGP, APTIM A HPV, RFX 16/18 ,45 performed by: CHRIST Nair ams, Cytot drew winn (ASCP ) Not Available [facility] ([facility]) [address], [place], [address], 02/10/2024 13:11:17 02/03/2002/10/2024 IGP, APTIM A HPV, RFX 16/18 ,45 . . Not Available [facility] ([facility]) [address] [place], [address], 02/10/2024 13:11:17 02/03/2002/10/2024 IGP, APTIM A HPV, RFX 16/18 ,45 note: CHRIST Winn The Pap smear is a scree nigel test desnéstor garza to aid in the detec tion of sherita ligna nt and malig nant condi tions of the uteri ne cervi x. It is not a diagn ostic proce dure and shoul d not be used as the sole means of detec ting cervi sergio cance r. Both false -posi tive and false -nega tive repor ts do occur . Not Available [facility] ([facility]) [address], [place], [address], 02/10/2024 13:11:17 02/03/20 24 02/10/2024 IGP, APTIM A HPV, RFX 16/18 ,45 test methodology: COMMEN T This liqui d based ThinP rep(R ) pap test was linnea garza with the use of an image guide emi canela Not Available [facility] ([facility]) [address], [place], [address], 02/10/2024 13:11:17 02/03/20 24 02/10/2024 IGP, APTIM A HPV, RFX 16/18 ,45 HPV genotype reflex COMMEN T Crite daisy not met, HPV Genot ype not perfo rmed. Not Available [facility] ([facility]) [address], [place], [address], 02/10/2024 13:11:17 09/06/19 24 09/06/2023 CT, abdom en + pelvi s, w/ contr ast No observ ation record ed. [address], [address], 09/29/2023 16:08:59 11/21/19 24 11/21/2023 CT, lumba r spine , w/o contr ast No observ ation record ed. [address], [address], 12/19/2023 17:44:21 02/10/20 24 02/10/2024 XR, kidne y + urete r + bladd er No observ ation record ed. [address], [address], 02/10/2024 16:49:21 05/22/19 25 05/22/2024 XR, abdom en No observ ation record ed. [facility] [address], [place], [address], 06/07/2024 16:58:48 06/26/19 25 06/21/2024 MAMMO , scree nigel, bilat eral No observ ation record ed. [email or web address] [facility] [address], [place], [address], 06/27/2024 16:13:51 Result Notes None recorded. Problems Name Problem SNOMED Code Status Onset Date Resolution Date Notes Provider Name and Address Organization Details Recorded Time Body mass index 30+ - obesity 576085612 Completed 201710/29/2020 INESSA Mehta Attn: Navin g,[address] [facility], [place], [address], [place] [facility] 3 17:13:59 Menstrua l cramp 349529226 Completed 201702/01/2019 Jackeline Causey RN [place], [place] [facility] 9 14:28:07 Candidia sis 78514044 Completed 02/01/2019 [place]eline [place] [facility] 9 14:28:15 Impaired glucose toleranc e 9891191 Active 2020 Jackeline [place] [facility] 3 12:45:12 Steatosi s of liver 445273371 Active 2020 Jackeline [place] [facility] 3 12:45:12 Vitamin D deficien cy 84705043 Completed 02/01/2019 INESSA Mehta Attn: Accountin g,[address] [facility], [place], [address], [place] [facility] 2 16:40:46 Vitamin D deficien cy 48206858 Active 2020 Jackeline [place] [facility] 3 12:45:12 Chronic maxillar y sinusiti s 97427519 Active 2021 Jackeline [place] [facility] 3 12:45:12 Glucose toleranc e test outside referenc e range 561407119 Completed 02/01/2019 [place]eline [place] [facility] [place] 14:27:59 Glucose toleranc e test outside referenc e range 574511142 Completed De[place]y [place] [facility] 5 17:31:01 Body mass index 30+ - obesity 127434478 Active 2022 Liliana Spicer [facility] Attn: Accountin g,[address] [facility], [place], [address], [place] [facility] 3 17:13:59 Mixed hyperlip idemia 109528119 Active 2022 Liliana Spicer [facility] Attn: Accountin g,[address] [facility], [place], [address], [place] [facility] 3 17:13:59 Chronic headache disorder 410909739 Active 2022 Liliana Spicer [facility] Attn: Accountin g,[address] [facility], [place], [address], [place] [facility] 3 17:13:59 History of calculus of kidney 679563553 Active 2022 Liliana Spicer [facility] Attn: Accountin g,[address] [facility], [place], [address], [place] [facility] 3 17:13:59 Obesity 951264773 Active 2022 Liliana Spicer [facility] Attn: Accountin g,[address] [facility], [place], [address], [place] [facility] 3 17:13:59 Mastodyn ia of bilatera l breasts 27500893936 096298 Active 2022 [facility] Attn: Navin diego,[address] [place], [address], [place] [facility] 3 17:13:58 Gastroes ophageal reflux disease 764899096 Active Jackeline Cause[place] [facility] 3 12:45:12 Gastroes ophageal reflux disease 293593544 Completed De[place]y [place] [facility] 5 17:31:01 Vitamin D deficien cy 41437874 Completed De[place] [facility] 5 17:31:01 Bacteria l vaginosi s 255589090 Completed 202309/29/2023 Removal Reason: resolved Liliana Spicre [facility] Attn: Navin diego,[address] [place], [address], [place] [facility] 4 16:11:19 Thoracic spondylo sis 155049280 Active 2023 [facility] Attn: Navin diego,[address] [place], [address], [place] [facility] 4 17:00:42 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 031168289 Active 2023 Jackeline [place] [facility] 4 15:51:09 Term pregnanc y delivere d 37407466 Completed 02/01/2019 [place] [facility] [place] 14:27:46 Term pregnanc y delivere d 76516319 Completed De[place] [facility] 5 17:31:01 Postpart [facility] 59593336 Completed 02/01/2019 [place] [facility] [place] 14:28:18 Postpart [facility] 42642825 Completed De[place] [facility] 5 17:31:01 Acute urinary tract infectio n 353263867 Completed 02/01/2019 Jackeline Causey RN null, [facility] 9 14:28:11 Obstruct ion of milk duct 686326106 Completed 02/01/2019 Jackeline Causey RN null, [facility] 9 14:27:50 Obesity 856922412 Completed 201608/22/2017 Liliana Spicer [facility]- Attn: Navin diego,[address] [facility], [place], [address], [facility] 3 17:13:59 Spasm of back muscles 809416308 Completed 201602/01/2019 Jackeline Causey RN null, [facility] 9 14:27:41 Headache 93992639 Completed 201602/01/2019 Jackeline Causey RN null, [facility] 4 15:50:47 Problem Notes None recorded. Procedures Surgical History Date Name Laterality Status Provider Name and Address Organization Details Recorded Time 02/03/20 24 Date of Last Pap Smear completed OSCAR CHAND NP Attn: Accounting,[address] [facility], [place], [address], [facility] 02/03/2024 17:28:55 03/21/20 23 Date of Last Mammogram completed Jackeline Causey RN [facility] 03/20/2024 15:38:49 01/14/20 23 Dilation and Curettage completed Jackeline Causey RN [facility] 01/14/2023 13:00:05 10/18/19 18 Control Implant Removal completed Sujata Dillard PA-C Attn: Accounting,[address] [facility], [place], [address], [facility] 10/17/2017 14:44:00 09/10/19 15 Control Implant Insertion completed Deonte Bey [facility] 09/09/2014 17:35:00 04/25/19 03 Cholecystectomy completed Sarita Potts MA [place] - [facility] 09/09/2014 15:54:11 Imaging Results Imaging Date Name Status [facility] Details LastModified Time 09/06/2023 CT, abdomen + pelvis, w/ contrast completed [address] [place] [address], [address], 09/29/2023 16:08:59 11/21/2023 CT, lumbar spine, w/o contrast completed [address], [address], 12/19/2023 17:44:21 02/10/2024 XR, kidney + ureter + bladder completed [address], [address], 02/10/2024 16:49:21 05/22/2024 XR, abdomen completed [address], [address], 06/07/2024 16:58:48 06/21/2024 MAMMO, screening, bilateral completed [email or web address] [facility] [address] [place], [address], 06/27/2024 16:13:51 Procedure Notes None recorded. Medical Equipment None Reported. Allergies No known drug allergies Medications Name Sig Start Date Stop Date Status Note LastModified by Organization Details LastModified Time Prescriptio n - Clarificati on 08/22 completed Not Available Not Available Not Available multivitami n tablet Take 1 tablet every day by oral route. 07/16 completed Not Available Not Available Not Available cyclobenzap rine 10 mg tablet TAKE ONE TABLET BY MOUTH TWICE DAILY FOR MUSCLE RELAXER 03/20 completed Not Available Not Available Not Available metformin 500 mg tablet Take 1 tablet every day by oral route. 10/29 completed [facility] Not Available Not Available Not Available azelastine 0.05 % eye drops INSTILL 1 DROP INTO AFFECTED EYE(S) BY OPHTHALMI C ROUTE 2 TIMES PER DAY 01/07 completed Not Available Not Available Not Available cetirizine 10 mg tablet Take 1 tablet every day by oral route. 03/17 completed Not Available Not Available Not Available azithromyci n 250 mg tablet TAKE 2 TABLETS (500 MG) BY ORAL ROUTE ONCE DAILY FOR 1 DAY THEN 1 TABLET (250 MG) BY ORAL ROUTE ONCE DAILY FOR 4 DAYS active Not Available Not Available No t Available ibuprofen 800 mg tablet TAKE 1 TABLET BY MOUTH THREE TIMES DAILY NEEDED FOR CRAMPS 09/28 completed Not Available Not Available Not Available fluconazole 150 mg tablet Take 1 tablet by oral route. 02/01 completed Not Available Not Available Not Available hydrocodone 5 mg-acetamin ophen 325 mg tablet TOME ESCOBAR TABLETA CADA CUATRO HORAS CUANDO SEA NECESARIO 03/21 completed Not Available Not Available Not Available meloxicam 15 mg tablet Take 1 tablet every day by oral route, for back pain. active Not Available Not Available No t Available Formula tablet Take 1 tablet every day by oral route. 08/22 completed Not Available Not Available Not Available clotrimazol e 1 % vaginal cream Insert 1 applicato rful every day by vaginal route at bedtime. 06/26 completed Not Available Not Available Not Available topiramate 25 mg tablet Take 1 tablet twice a day by oral route. 06/02 completed Not Available Not Available Not Available metronidazo le 500 mg tablet TAKE ONE TABLET BY MOUTH TWICE DAILY FOR 7 DAYS 06/21 completed Not Available Not Available Not Available acetaminoph en 300 mg-codeine 30 mg tablet TAKE ONE TABLET BY MOUTH EVERY TWELVE HOURS NEEDED HEADACHE 06/02 completed Not Available Not Available Not Available omeprazole 40 mg capsule,del ayed release TAKE ONE CAPSULE BY MOUTH EVERY DAY FOR STOMACH 03/21 completed Not Available Not Available Not Available ketorolac 30 mg/mL (1 mL) injection solution Inject 1 mL every 6 hours by intramusc ular route. 06/26 completed Not Available Not Available Not Available Macrobid 100 mg capsule Take 1 capsule every 12 hours by oral route for 10 days, for infection . 12/18 completed Not Available Not Available Not Available oxycodone-a cetaminophe n 5 mg-325 mg tablet active Not Available Not Available No t Available dicyclomine 20 mg tablet TAKE ONE TABLET BY MOUTH THREE TIMES DAILY FOR STOMACH 06/02 completed Not Available Not Available Not Available cephalexin 500 mg capsule Take 1 capsule every 12 hours by oral route for 10 days. 09/28 completed Not Available Not Available Not Available pantoprazol e 40 mg tablet,sabrina yed release TAKE 1 TABLET BY MOUTH AT BEDTIME active Not Available Not Available No t Available ferrous sulfate 325 mg (65 mg iron) tablet Take 1 tablet twice a day by oral route. 2014 active Not Available Not Available Not Avai lable ranitidine 150 mg tablet Take 1 tablet twice a day by oral route. 06/08 completed Not Available Not Available Not Available fluoxetine 10 mg capsule TAKE ONE CAPSULE BY MOUTH EVERY DAY 06/21 completed Not Available Not Available Not Available ibuprofen 200 mg tablet Take 1 tablet every 6 hours by oral route. 05/18 completed x3 Not Available Not Available Not Available omeprazole 20 mg capsule,del ayed release Take 1 capsule twice a day by oral route before meals. 03/17 completed Not Available Not Available Not Available ergocalcife rol (vitamin D2) 1,250 mcg (50,000 unit) capsule TAKE ONE CAPSULE BY MOUTH EVERY WEEK 03/21 completed Not Available Not Available Not Available ibuprofen 600 mg tablet Take 1 tablet 3 times a day by oral route as needed for 30 days. 06/02 completed Not Available Not Available Not Available Pepcid 20 mg tablet Take 1 tablet twice a day by oral route. 2014 active Not Available Not Available Not Avai lable polyethylen e glycol 3350 17 gram/dose oral powder Take 17 g every day by oral route. 10/29 completed Not Available Not Available Not Available methylpredn isolone 4 mg tablets in a dose pack take as directed on package active Not Available Not Available No t Available norethindro ne (contracept paulette) 0.35 mg tablet Take 1 tablet every day by oral route. 2014 active Not Available Not Available Not Avai lable fluticasone propionate 50 mcg/actuati on nasal spray,suspe nsion [place] 1 spray every day by intranasa l route. 2023 active Not Available Not Available Not Avai lable medroxyprog esterone 150 mg/mL intramuscul ar suspension inject ONE ML by intramusc ular route every THREE MONTHS 03/02 completed Not Available Not Available Not Available loratadine 10 mg tablet Take 1 tablet every day by oral route. 2023 active Not Available Not Available Not Avai lable naproxen 500 mg tablet TAKE ONE TABLET BY MOUTH TWICE DAILY 09/28 completed Not Available Not Available Not Available Sprintec (28) 0.25 mg-35 mcg tablet Please specify direction s, refills and quantity 03/17 completed Not Available Not Available Not Available Vitamin D3 25 mcg (1,000 unit) tablet Take 1 tablet by oral route. 11/16 completed Not Available Not Available Not Available cyclobenzap rine 5 mg tablet TAKE 1 TABLET BY MOUTH THREE TIMES DAILY NEEDED FOR MUSCLE SPASM 03/20 completed Not Available Not Available Not Available Ciprodex 0.3 %-0.1 % ear drops,suspe nsion INSTILL 4 DROPS INTO AFFECTED EAR(S) BY OTIC ROUTE 2 TIMES PER DAY FOR 7 DAYS 03/17 completed Not Available Not Available Not Available Tri-Prevife m (28) 0.18 mg(7)/0.215 mg(7)/0.25 mg(7)-35 mcg tablet Take 1 tablet(s) every day by oral route. 06/08 completed Not Available Not Available Not Available Calcium 600 + D(3) 600 mg-5 mcg (200 unit) tablet 1 bid 08/22 completed Not Available Not Available Not Available Seasonique 0.15 mg-30 mcg (84)/10 mcg(7) tablets,3 month dose pack Take 1 tablet every day by oral route. 10/29 completed Not Available Not Available Not Available [place] Oil 1,000 mg capsule Take 1 capsule 3 times a day by oral route. 03/21 completed Not Available Not Available Not Available Calcium with Vitamin D 600 mg-10 mcg (400 unit) tablet Take 1 tablet twice a day by oral route. 10/29 completed Not Available Not Available Not Available Plus (calcium carbonate) 27 mg iron-1 mg tablet Take 1 tablet every day by oral route. 2014 active Not Available Not Available Not Lorenzo farmer Nexplanon 68 mg subdermal implant Inject 1 implant by subcutane ous route. 10/17 completed Not Available Not Available Not Available Loratadine- D 5 mg-120 mg tablet,exte nded release 12 hr TAKE ONE TABLET BY MOUTH EVERY TWELVE HOURS 06/02 completed Not Available Not Available Not Available calcium 600 mg (as carbonate)- vitamin D3 20 mcg (800 unit) tablet Take 1 tablet twice a day by oral route. 08/22 completed Not Available Not Available Not Available Caltrate plus D 600 mg (carbonate) -20 mcg (800 unit) chewable tablet Take 1 tablet twice a day by oral route. 2014 active Not Available Not Available Not Lorenzo farmer Xulane 150 mcg-35 mcg/24 hr transdermal patch Apply 1 patch every week by transderm al route. 07/16 completed Not Available Not Available Not Available Tyblume 0.1 mg-20 mcg chewable tablet Chew 1 tablet every day by oral route. 09/28 completed Not Available Not Available Not Available Vitals Date Recorded Body height Body mass index (BMI) Body weight Body temperature Heart rate Systolic blood pressure Diastolic blood pressure Provider Name and Address Organization Details Last Updated DateTime 4 146.69 cm 30.5 kg/m2 96215.1 g 98.6 [degF] 96 /min 114 mm[Hg] 72 mm[Hg] Moi Wong MA [place] - [facility] 4 15:57:30 Date Recorded Body height Body mass index (BMI) Body weight Body temperature Heart rate Systolic blood pressure Diastolic blood pressure Provider Name and Address Organization Details Last Updated DateTime 4 146.69 cm 30.4 kg/m2 66981.7 g 98 [degF] 92 /min 112 mm[Hg] 78 mm[Hg] Moi Wong MA MA - [facility] 4 14:59:35 Date Recorded Body height Body temperature Body mass index (BMI) Body weight Oxygen saturation Oxygen saturation in Arterial blood by Pulse oximetry Heart rate Systolic blood pressure Diastolic blood pressure Provider Name and Address Organization Details Last Updated DateTime 4 146.69 cm 98.1 [degF] 30.4 kg/m2 94040.7 g 97 % 97 % 94 /min 108 mm[Hg] 70 mm[Hg] Shanti winn MA [facility] 4 16:36:35 Date Recorded Body height Body mass index (BMI) Body weight Heart rate Systolic blood pressure Diastolic blood pressure Provider Name and Address Organization Details Last Updated DateTime 4 146.69 cm 30.4 kg/m2 88490.4 4 g 93 /min 120 mm[Hg] 81 mm[Hg] Maryellne Wilder MA [facility] 4 17:15:44 Date Recorded Body height Body mass index (BMI) Body weight Oxygen saturation Oxygen saturation in Arterial blood by Pulse oximetry Heart rate Body temperature Systolic blood pressure Diastolic blood pressure Provider Name and Address Organization Details Last Updated DateTime 4 146.69 cm 30.7 kg/m2 69909.0 8 g 97 % 97 % 90 /min 98 [degF] 114 mm[Hg] 68 mm[Hg] Jackeline Causey RN [facility] 4 15:50:22 Social History Question Answer Notes LastModified by Organizat ion Details LastModified Time Tobacco Smoking Status Never Smoker Leidy No MA null, [facility] 04/08/2014 17:08:12 Do You Have An Advance Directive? No Information not available 09/09/2014 What Is Your Level Of Alcohol Consumption? None Information not available 09/09/2014 Are You Blind Or Do You Have Difficulty Seeing? No Information not available 06/19/2020 Is Blood Transfusion Acceptable In An Emergency? Yes Information not available 09/09/2014 What Is Your Level Of Caffeine Consumption? Moderate Information not available 09/09/2014 How Much Tobacco Do You Chew? None Information not available 09/09/2014 In The 14 Days Before Symptom Onset, Have You Had Close Contact With A Laboratory-confir med COVID-19 While That Case Was Ill? No Information not available 06/19/2020 In The 14 Days Before Symptom Onset, Have You Had Close Contact With A Person Who Is Under Investigation For COVID-19 While That Person Was Ill? No Information not available 06/19/2020 Have You Been To An Area Known To Be High Risk For COVID-19? No Information not available 06/19/2020 Are You Currently Employed? No Information not available 09/09/2014 Are You Deaf Or Do You Have Serious Difficulty Hearing? No Information not available 06/19/2020 What Type Of Diet Are You Following? REGULAR Information not available 09/09/2014 Do You Or Have You Ever Used E-cigarettes Or Vape? Never Used Electronic Cigarettes Information not available 02/01/2019 Education Less Than 8th Grade Information not available 09/09/2014 Are There Any Guns Present In Your Home? No Information not available 06/19/2020 Live Alone Or With Others? With Others Information not available 09/09/2014 What Was The Date Of Your Most Recent Tobacco Screening? 03/20/2024 Information not available 03/20/2024 How Many Children Do You Have? 3 Information not available 09/09/2014 Performs Monthly Self-breast Exam? Yes Information no t available 09/09/2014 What Is Your Relationship Status? Information not available 09/09/2014 Do You Use Your Seat Belt Or Car Seat Routinely? Yes Information not available 06/19/2020 Seat Belts Used Routinely Yes Information not available 09/09/2014 Are You Sexually Active? No Information not available 09/09/2014 Do You Have Smoke And Carbon Monoxide Detectors In Your Home? Yes Information not available 06/19/2020 Are You Passively Exposed To Smoke? No Information no t available 06/19/2020 Do You Or Have You Ever Used Smokeless Tobacco? Never Used Smokeless Tobacco Information not available 02/01/2019 How Much Tobacco Do You Smoke? No Information not available 01/08/2020 General Stress Level Low Information not available 09/09/2014 Do You Feel Stressed (tense, Restless, Nervous, Or Anxious, Or Unable To Sleep At Night)? [id number] Information not available 11/30/2021 Do You Use Any Illicit Or Recreational Drugs? No Information not available 06/19/2020 Do You Use Sunscreen Routinely? No Information not available 09/09/2014 Has Tobacco Cessation Counseling Been Provided? No Information not available 11/09/2022 Do You Or Have You Ever Used Any Other Forms Of Tobacco Or Nicotine? No Information not available 06/19/2020 Sex: Female Functional Status Question Answer Note LastModified by Organization D etails LastModified Time Are you able to care for yourself? Yes Information n ot available 06/19/2020 What is your exercise level? None Information not available 09/09/2014 Mental Status None recorded. Family History Relationship Description Onset Age of this Age Resolved Age Notes LastModified by Organization Details LastModified Time Mother No current problems or disability [email or web address] Not available 02/01 14:37:15 Medical History Condition Response Coronary Artery Disease N Kidney Cyst N Blood Diseases N Hyperthyroidism N Blood disorders N Blood Transfusion N MRSA N Emphysema N Depression N COPD N Blood Clots N Pneumonia N Premature N Peripheral Arterial Disease N Edema N TIA N Headaches/Migraines N Anxiety Disorder N Obesity N Polyps N Infertility N Acid Reflux (GERD) Y Hematuria N Stroke N Neck Injury N Polio N Hospital Admission other than N Neurologic Disorder N Other Sleep Disorders N Rheumatoid Arthritis N Fibromyalgia N Abdominal Aortic Aneurysm Repair N Kidney Disease N Heart Conditions N Heart Disease/Heart Problems N Hospitalizations N Brain Tumors N Acne N Skin Problems N Eating Disorder N Meningitis N Constipation N Tuberculosis N Cerebral Palsy N Myocardial Infarction N Asthma N Substance Abuse N Peripheral Vascular Disease N Vertigo N Sleep Disorder N Cirrhosis N Pulmonary Embolism N Chicken Pox N Hematologic Disease N Flomax Use Past or Present N Anxiety/Depression N Thyroid Disease N Colon Cancer N Lung Disease N Glaucoma N Developmental or Behavioral Disorders N Bipolar N Pacemaker N Diverticulitis/Diverticulosis N Orthopedic Problems N Anesthesia Complications N Orthotics N Head Injury/Concussion N Congenital Anomalies N [place] Bite N Chronic Kidney Disease N Endometriosis N Liver Disease N Schizophrenia N Dialysis N Speech Delay N Chronic Obstructive Pulmonary Disease N Parkinson's Disease N Thyroid Problems N GI Problems Y Developmental Delay N Anemia N Multiple Sclerosis N Immune System Disorder N Colon Polyps N Heart Attack (ME) N Diabetes N Cardiomyopathy N Blood Transfusions N Heart Problems/Murmur N Eye Trauma N Congestive Heart Failure (CHF) N Valvular Heart Disease N Hyperlipidemia N Double Vision N Abuse/Domestic Violence N Hepatitis B N Lupus N Epilepsy/Seizures N Reflux/GERD N Aneurysm N Heart Disease N Bronchitis N Pre-Eclampsia N Hypertension N Heart Failure N Other Y Gout N High Blood Pressure N Atrial Fibrillation N Kidney Stones N Head Trauma/Injury N Congenital Heart Disease N Spine Problems N Gastrointestinal Disease N Lung Mass N Sinusitis N Obstructive Sleep Apnea N Muscle, Joint, or Bone Problems N Autoimmune disease N Vision or Eye Problems N Arthritis N Blood Clot N Cancer N Seasonal allergies N Leg or Foot Ulcers N Raynaud's Disease N Aortic Aneurysm N Arrhythmia N Headaches N Heart Problems N [place] N Ear or Hearing Problems N Hyperparathyroidism N Migraines N Artificial Joints N Kidney or Bladder Problems Y NSAID Use N Encephalitis N PTSD N Ulcers N Prostate Hypertrophy N Bleeding Disorder N AIDS/HIV N Urinary Tract Infection N Back Problems N Allergies Y Atrial Flutter N GERD/Reflux N Hepatitis N Autism Spectrum Disorder (ASD) N Breast Cancer N Hernia N Hypothyroidism N Breast Problem N Genitourinary Disease N Deep Vein Thrombosis N Varicose Veins N Cystic Fibrosis N Hearing Loss N Developmental Problems N Carotid Disease N Vitamin D Deficiency N ADHD N Bladder or Kidney Problems N High Cholesterol N [place] N Valvular Abnormalities N Psychiatric/Mental Health Condition N Organ Transplant N Foot Deformity N Allergies/Hayfever N Dyslipidemia N Hyponatremia N Diabetic Eye Disease N Osteoporosis/Osteopenia N Back Pain N Proteinuria N Mental Illness N Neurological Problems N Ovarian Cancer N Bedwetting N Seizures/Epilepsy N Kidney Failure N Ocular trauma N Diverticulitis N Dementia N Sleep Apnea N Mental Problems N Warfarin Management N Osteoporosis N Gynecological History Statement/Question Response Abnormal Pap Y Date of Last Mammogram 03/21/2023 Flow Moderate Date of LMP 03/15/2024 On BCP's at Conception? N STIs/STDs N HPV Vaccine N Duration of Flow (days) 4 Age at Menarche 13 Current Control Method None Age at First Child 23 Frequency of Cycle (Q days) 27 Sexually Active? Y Menses Monthly Y Date of Last Pap Smear 02/03/2024 Sexual Problems? N LMP Definite Desired Control Method None Obstetrics History GPAL:G 6 P 3 0 3 3 Type Value Multiple Births 0 Full Term 3 Induced 2 Spontaneous 1 Premature 0 Living 3 Ectopics 0 Total 6 Immunizations Vaccine Type Date Status Note Provider Nam e and Address Organization Details Recorded Time Tdap 5 completed Not Available [facility] 03/01/2023 09:39:59 Influenza, split virus, quadrivalent, PF 9 completed Not Available [facility] 05/12/2019 02:38:14 Influenza, split virus, quadrivalent, PF 0 completed ADWOA Humphries null, [place] - [facility] 03/17/2020 16:46:13 COVID-19, mRNA, LNP-S, PF, 30 mcg/0.3 mL dose 1 completed Noemy Butler [place], [place] [facility] 10/15/2020 13:42:18 COVID-19, mRNA, LNP-S, PF, 30 mcg/0.3 mL dose 1 completed Noemy Butler [place] [facility] 11/01/2020 14:44:14 Influenza, split virus, quadrivalent, PF 1 completed Jackeline Cause[place], [place] [facility] 02/26/2021 16:55:55 Influenza, split virus, quadrivalent, preservative 2 completed Moi Wong [place] [facility] 03/02/2022 17:05:03 Influenza, split virus, quadrivalent, preservative 3 completed Shanti Perez [place] [facility] 03/21/2023 18:04:28 Influenza, split virus, trivalent, preservative 4 completed Jackeline Cause[place] [facility] 03/20/2024 16:30:08 Past Encounters Encounter ID Performer Location Encounter Start Date Encounter Closed Date Diagnosis/Indication Diagnosis SNOMED-CT Code Diagnosis ICD10 Code Diagnosis Note [id number] LORENA Champagne ([employer]) [address] [place] [address] [id number] 04/08/2014 16:37:04 04/09/2014 14:11:02 [id number] Deonte Bey Phil ([employer]) [address] [place] [address] [id number] 05/20/2014 16:24:50 05/20/2014 17:37:40 [id number] Acute urin aleshia tract infection [id number] COLBY Dill ([employer]) [address] [place] [address] [id number] 06/17/2014 09:32:36 06/17/2014 10:46:22 [id number] Advanced m aternal age 412507613 Vitamin D deficiency [id number] COLBY Dill ([employer]) [address] [place] [address] [id number] 0 07/02/2014 09:27:25 07/02/2014 10:45:56 Normal [id number] [facility] nning surveillance [id number] Gastroesop hageal reflux disease 099905274 Vitamin D deficiency 17245166 Glucose to lerance test outside reference range [id number] LORENA Champagne ([employer]) [address] [place] [address] [id number] 07/22/2014 16:25:15 07/22/2014 16:52:30 Normal 95514179 Advanced m aternal age 499068711 Glucose to lerance test outside reference range [id number] Phil ([employer]) [address] [place] [address] [id number] 09/09/2014 15:04:17 09/09/2014 16:43:10 state [id number] [facility] nning surveillance [id number] Insertion of subcutaneous contraceptive [id number] [facility] ion care management [id number] Rosanne Villarreal ([employer]) [address] [place] [address] [id number] 10/08/2014 09:55:11 10/08/2014 10:35:57 Subcutaneous contraceptive implant palpable [id number] LORENA Champagne ([employer]) [address] [place] [address] [id number] 12/16/2014 15:34:09 12/17/2014 12:09:38 Subcutaneous contraceptive implant palpable [id number] Family candelario nning surveillance [id number] Active or passive immunization [id number] OLI Zapata (Adult Med) [address] [place] [address] [id number] 11/19/2015 12:24:00 11/19/2015 13:33:39 Obstruction of milk duct 417455572 N64.89 Advised warm compress and warm shower to help with pain Advised to breast feed from that breast as much as possible to expel the milk Advised if she develops nausea, vomiting, fever, chills, any type of discharge from the nipple to RTC [id number] OLI Zapata (Adult Med) [address] [place] [address] [id number] 08/17/2016 15:55:56 08/17/2016 18:29:48 Obesity 918636977 E66.9 Advised 30 minutes of exercise 5 days/week Advised to not drink her calories Advised 3 balanced meals/day with plenty of fruits and vegetables Gastroesop hageal reflux disease 929876846 K21.9 Advised to stay away from spicy and greasy foodsAdvis ed to stay away from fatty foodsDo not eat within 2 hours of going to bedStay sitting up after mealsNo smoking She is currently eating 10 tortillas/ dayAdvised on 1-2 Vitamin D deficiency 347 61246 E55.9 Spasm of back muscles 20 1910372 M62.830 Discussed and demonstrat ed different stretches she could tryAdvised we will begin muscle relaxersRT C if no improvemen tAdvised that 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, working at a [employer] mat, 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 and cause them to be tight [id number] OLI Zapata (Adult Med) [address] [place] [address] [id number] 0 11/17/2016 16:23:45 11/17/2016 18:02:20 Headache 73983205 R51 Discussed that at this time since her headaches have stopped and when she was having them that ibuprofen and tylenol were working, there is no need for further w/u at this timedrink 64oz water+ daily3 balanced meals dailyRTC for any further issues; however, if HAs are improved PRN with ibuprofen and tylenol I would like her to c/w that medication OTCPatient does not have insuranceA dvised any loss of vision, change in vision, slurred speech, confusion, LOC go directly to the ER Obesity 498829056 E66.9 Advised 30 minutes of exercise 5 days/week Advised to not drink her calories Advised 3 balanced meals/day with plenty of fruits and vegetables [id number] Deonte Villarreal [facility] ([employer] WORK[employer]) [address] [place] [address] 0 06/08/2017 15:02:14 06/09/2017 13:34:16 Increased frequency of urination 021679148 R35.0 Family candelario nning surveillance 627496273 Z30.09 Spasm of back muscles 20 9496234 M62.542 [id number] OLI Zapata (Adult Med) [address] [place] [address] 0 08/22/2017 10:52:26 08/22/2017 11:34:00 Seasonal allergic rhinitis 338833312 J30.2 Menstrual cramp 30653327 1 N94.6 Will prescribed ibuprofen TID PRN for menstrual back pain - discussed that since her back pain only occurs when she has her cycle, this is the likely causes and she can treat symptomati aurora Vitamin D deficiency 347 48013 E55.9 RTC 4 months for recheck Body mass index 30+ - obesity 994769648 Z68.32 Advised 30 minutes of exercise 5 days/week Advised to not drink her calories Advised 3 balanced meals/day with plenty of fruits and vegetables [id number] OLI Zapata (Adult Med) [address] [place] [address] 0 10/17/2017 14:12:22 10/18/2017 11:34:03 Contraception care 350268106 Z30.40 Patient to begin OCPs at this time. 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 grape picker and begin today Discussed that without control her fertility is returned immediatel y d/t removal of nexplanon Subcutaneo us contraceptive implant palpable 614266662 Z30.46 Removed today [id number] Deonte Villarreal ([employer]) [address] [place] [address] 12/20/2018 15:30:40 12/21/2018 12:51:47 Gynecologic examination 68625420 Z01.419 Exposure t o sexually transmissible disorder 998112215 Z20.2 Family candelairo nning surveillance 257128339 Z30.09 [id number] [facility] [address] [place] [address] 02/01/2019 14:18:52 02/02/2019 08:41:02 Gastroesophageal reflux disease 048250503 K21.9 Administra tion of influenza vaccine 10464658 Z23 Body mass index 25-29 - overweight 964512865 Z68.28 BMI 28.4Health y weight range 90-120 Depressive disorder 3548 9007 F32.9 mildwill monitor [id number] [facility] [address] [place] [address] 04/10/2019 14:59:36 04/11/2019 10:40:59 Gastroesophageal reflux disease 909986703 K21.9 Body mass index 25-29 - overweight 293962627 Z68.28 BMI 28.4Health y weight range 90-120 Allergic conjunctivitis 840624183 H10.13 [id number] [facility] [address], [place]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 neurologis ts office to make f/u appt Stress and adjustment reaction 045634692 F43.9 PHQ 2-9 + GAD-7 + .psyc hotherapis t appointmen t and/or psychiatri st Body mass index 30+ - obesity 192070800 Z68.30 BMI 30.4Ht 4' 9.75 Healthy weight range 90-120 Depression screening 171 256127 Z13.31 PHQ2-9 ++psychiat rist/psych otherapist listpatien t to seek/make his own appointmen t MELISSA Mental hea [facility] screening 082401855 Z13.39 GEMMA-7 ++psychiat rist/psych otherapist listpatien t to seek/make his own appointmen t [facility] Administra tion of influenza vaccine 86526147 Z23 [id number] [facility] [address] [address] 4 05/18/2023 15:49:36 05/25/2023 14:13:28 Obesity 952435664 E66.9 BMI 30.9Ht 4' 9.75 Healthy weight range 90-120 Abnormal vaginal odor 62 366262 N89.8 since having miscarriag e and D&C Hebert 99503047 N 94.0 may use ibuprofen or naprosyn as necessary Bacterial vaginosis 4197 95099 N76.0 NUSWAB + B Vag [id number] [facility] [address] [place] [address] 4 05/20/2023 15:01:48 05/26/2023 14:06:20 Abnormal vaginal odor 91171723 N89.8 since having miscarriag e and D&C [id number] [facility]iana [facility] [address] [place] [address] 4 06/21/2023 15:28:31 06/22/2023 14:22:56 Mixed hyperlipidemia 917738556 E78.2 01/30/2021 CHO 183TRIG 76hdl 66ldl 103 03/02/2022 cho 215.6trig 143HDL 56.7LDL 133.5Avoid all breads, potatoes, cereal, pasta, rice, margarine, refined sugars, milk yogurt, ice cream, juices, soda (including diet), beer, and manmade or manufactur ed desserts. Enjoy steak, fish, chicken (no skin), pork, butter, vegetables , beans, nuts, whole eggs, cheese (low fat or skim), cream in your coffee. Obesity 790154466 E66.9 BMI 31.2Ht 4' 9.75 Healthy weight range 90-120 Body mass index 30+ - obesity 580138680 Z68.30 BMI 31.2Ht 4' 9.75 Healthy weight range 90-120 Vitamin D deficiency 347 26445 E55.9 Vitamin D 21.1.donell r but needs to continue taking Vitamin Dtake otc vitamin D3 1000 IU daily Chronic ma xillary sinusitis 06373288 J32.0 mri brain WO CONTRAST ON 03/05/2021 SHOWS CHRONIC SINUSITIS Steatosis of liver 74321 1007 K76.0 fatty liver on abdominal u/s 07/03/2020 stressed diet informatio n no tylenol In 2017 lipid panel chol 175 trig 59 HDL 65 LDL 21CHO 183TRIG 76hdl 66ldl 103 03/02/2022 cho 215.6trig 143HDL 56.7LDL 133.5Avoid all breads, potatoes, cereal, pasta, rice, margarine, refined sugars, milk yogurt, ice cream, juices, soda (including diet), beer, and manmade or manufactur ed desserts. Enjoy steak, fish, chicken (no skin), pork, butter, vegetables , beans, nuts, whole eggs, cheese (low fat or skim), cream in your coffee. Impaired g lucose tolerance 4615453 R73.03 02/26/2021 HA1C 5.802// 024 HA1C 5.7 Watch your weight. A healthy weight helps your body use insulin properly. Limit the amount of calories, sweets, and unhealthy fat you eat. Get at least 30 minutes of exercise on most days of the week. Exercise helps control your blood sugar. It also helps you maintain a healthy weight. Walking is a good choice. You also may want to do other activities , such as running, swimming, cycling, or playing tennis or team sports. Do not smoke. Smoking can make prediabete s worse. Chronic he adache disorder 027078875 G44.89 Has seen neurologis t 07/15/2021; 10/07/[address] of brainHas tried rx -still gets headachesc all neurologis ts office to make f/u appt History of calculus of kidney 863505254 Z87.442 seen in the [facility] ssed kidney stonefeels fineneeds to drink more water Depression screening 171 120703 Z13.31 PHQ2-9 negative Mental hea [facility] screening 929072679 Z13.39 GEMMA-7 negative Gastroesop hageal reflux disease 734632021 K21.9 She completed Omeprazole felt fine while taking it Patient started having abdominal bloating and epigastric abd pain after having spicy foods denies nausea/vom itingHas refills at home [id number] GUALBERTO Mehta-[facility] [address] [place] [address] 09/29/2023 15:41:48 09/30/2023 12:58:31 Follow-up visit 341009538 Z09 43 y/o HF here for follow up er visit for lower abdominal pain on 09/06/2023 at [facility]. The patient presented with lower abd pain and flank area discomfort . for 5 days. She had a negative CT abd/pelvis with contrast. Her CBC and cmp were both normal. In addition, she c/o urinary burning and frequency but felt like she was not getting all the urine out. Her urine did show bacteria. Hence, she was treated with cephalexin 500mg bid for 10 days. Today, she reports feels a little better. However, her ua dip still shows small leuks and trace of blood.. She is still experienci ng some discomfort in R lower quadrant and it radiates to low back. Acute urin aleshia tract infection 836907875 N39.0 UA dip shows small leuks and trace of blood Abdominal pain 27954866 R10.9 lower abdominal pain with dysuriaCT abd/pelvis w/contrast unremarkab le Obesity 939851120 E66.9 BMI 30Ht 4' 9.75 Healthy weight range 90-120 Thoracic spondylosis 387 104087 M47.814 05/12/2022 CT abd/pelvis with contrast shows mild thoracic spondylosi s [id number] YANG NAILS PA-C [facility] [address] [place] [address] 11/17/2023 14:53:14 11/22/2023 18:44:06 Chronic maxillary sinusitis 75752327 J32.0 C/W Loratadine 10mg dailyC/W fluticason e nasal spray Obesity 844195837 E66.8 BMI 30.4 Advised decreased portion sizes, good food choices, limited eating out or fast food and eliminate soda and juice from diet. Advised physical activity daily and offered encouragem ent to continue with positive changes made so far. Dysuria 39023752 R30.0 Trace blood on UA todayWill treat empiricall y with Macrobid 100mg BID x 10 daysUrine Cx sent out Low back pain 725591243 M54.50 Start meloxicam 15mg daily for back painDo not take other NSAIDs such as Ibuprofen, Naproxen while on this medication Gastroesop hageal reflux disease 385221982 K21.9 Resolved- pt states does not take meds and does not get acid reflux anymore [id number] [facility] [address] [address] 12/19/2023 16:27:44 12/20/2023 14:20:09 Low back pain 492804444 M54.50 Start meloxicam 15mg daily for back painDo not take other NSAIDs such as Ibuprofen, Naproxen while on this medication Obesity 363736218 E66.8 BMI 30.4 Advised decreased portion sizes, good food choices, limited eating out or fast food and eliminate soda and juice from diet. Advised physical activity daily and offered encouragem ent to continue with positive changes made so far. Thoracic spondylosis 387 471189 M47.814 05/12/2022 CT abd/pelvis with contrast shows mild thoracic spondylosi s05 4 CT Abd/pelvis w contrast normal11/20 CT lumbar spine w/o contrast disc bulges L2-L3 through L4-L5 disc protrusion at L5-S1, moderate facet osteoarthr itis, sacroiliac OA, lumbar spondylosi s Steatosis of liver 1007 K76.0 fatty liver on abdominal u/s 07/03/2020 stressed diet informatio n no tylenol In 2017 lipid panel chol 175 trig 59 HDL 65 LDL 21CHO 183TRIG 76hdl 66ldl 103 03/02/2022 cho 215.6trig 143HDL 56.7LDL 133.5 06/21/2023 cho 167Trig 163HDL 60LDL 99Avoid all breads, potatoes, cereal, pasta, rice, margarine, refined sugars, milk yogurt, ice cream, juices, soda (including diet), beer, and manmade or manufactur ed desserts. Enjoy steak, fish, chicken (no skin), pork, butter, vegetables , beans, nuts, whole eggs, cheese (low fat or skim), cream in your coffee.Maximino ght loss leads to improvemen t in liver biochemica l tests, liver histology, serum insulin levels and quality of life.Maint ain a healthy weight. Lose weight if you are overweight or obeseEat a healthy diet. Try to limit salt and sugar. You can eat fruits, vegetables and whole grains. The Mediterran farideh Diet is a good choice.Exe rcise regularly. This can help you lose weight and reduce fat in the liverLower your cholestero l and triglyceri desAvoid alcoholOnl y take medicines that you need and follow dosing recommenda tions. 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 Pap and HPV testing done; Last pap smear: 12/20/2018 NILM HRHPV Neg2. Pt is not using control.3. Educated on STI reduction and prevention . Encouraged condom use.4. Discussed when to return to clinic for /LEGAL ASSOCIATE complaints . 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 761812733 M47.9 11/21/2023 CT lumbar spine w/o contrast disc bulges L2-L3 through L4-L5 disc protrusion at L5-S1, moderate facet osteoarthr itis, sacroiliac OA, lumbar spondylosi s Low back pain 902796932 M54.50 Start meloxicam 15mg daily for back painDo not take other NSAIDs such as Ibuprofen, Naproxen while on this medication Thoracic spondylosis 387 878772 M47.814 05/12/2022 CT abd/pelvis with contrast shows mild thoracic spondylosi s0 CT Abd/pelvis w contrast normal11/20 CT lumbar spine w/o contrast disc bulges L2-L3 through L4-L5 disc protrusion at L5-S1, moderate facet osteoarthr itis, sacroiliac OA, lumbar spondylosi s Obesity 575226788 E66.9 BMI 30.4 Advised decreased portion sizes, good food choices, limited eating out or fast food and eliminate soda and juice from diet. Advised physical activity daily and offered encouragem ent to continue with positive changes made so far. Acute sinusitis 72503716 J01.90 Administra tion of influenza vaccine 57554233 Z23 Health Concerns Section Related Observation LastModified by Organization Detai ls LastModified Time None Recorded Concern Status LastModified by Organization Details LastModified Time None Recorded Advance Directives Directive N: Payers Encounter Date Sequence Insurance Name Policy Number Policy Merida Covered Member ID Merida Member ID Guarantor Name 09/29/2023 1 [facility] ON OR AFTER 10/23/20 (MEDICAID REPLACEMENT - HMO) Carole Vega [id number] Carole Vega 11/17/2023 2 *SELF PAY* Nory Vega 11/17/2023 1 [facility] ON OR AFTER 10/23/20 (MEDICAID REPLACEMENT - HMO) Carole Vega [id number] Carole Vega 12/19/2023 1 [facility] ON OR AFTER 10/23/20 (MEDICAID REPLACEMENT - HMO) Carole Vega [id number] Carole Vega 02/03/2024 2 *SELF PAY* Nory Vega 02/03/2024 1 [facility] ON OR AFTER 10/23/20 (MEDICAID REPLACEMENT - HMO) Carole Vega [id number] Carole Vega 03/20/2024 2 *SELF PAY* Nory Vega 03/20/2024 1 [facility] ON OR AFTER 10/23/20 (MEDICAID REPLACEMENT - HMO) Carole Vega [id number] Carole Vega Notes Date Note Type Note Provider Name and Address Organization Details Recorded Time 09/29/2023 text/html 43 y/o HF here f or follow up er visit for lower abdominal pain on 09/06/2023 at [facility]. The patient presented with lower abd pain and flank area discomfort. for 5 days. She had a negative CT abd/pelvis with contrast. Her CBC and cmp were both normal. In addition, she c/o urinary burning and frequency but felt like she was not getting all the urine out. Her urine did show bacteria. Hence, she was treated with cephalexin 500mg bid for 10 days. Today, she reports feels a little better. However, her ua dip still shows small leuks and trace of blood.. She is still experiencing some discomfort in R lower quadrant and it radiates to low back. INESSA Mehta Attn: [address]ing[address] [place], [address], [facility] 09/29/2023 16:33:09 11/17/2023 text/html 43 y/o F here for medication refill. Pt states she is still having low back pain and having some burning with urination. Denies blood in urine, urinary frequency or vaginal discharge. She does not remember if the medication that she was prescribed at last OV helped with her back pain or not. Pt states pain is all day and not exacerbated by anything in particular. Denies abdominal pain, SOB, CP, N/V/D. YANG NAILS PA-C Attn: [address] [place], [address], [facility] 11/17/2023 15:25:37 12/19/2023 text/html 43 y/o F here for medication refill. Pt states she is still having low back pain. Also having knee discomfort and hip discomfort. Patient reminded she has OA and she needs to be stretching and losing weight plus using appropriate shoes with good support. Meloxicam helps with her s/s. SHe is aware not to take on a daily basis. Pt states pain is all day and not exacerbated by anything in particular. Denies abdominal pain, SOB, CP, N/V/D. She is concerned over her fatty liver diagnosis. Reminded patient on LSM, no alcohol, no tylenol etc. Reviewed her last LFTs 05/2023 which were normal. INESSA Mehta Attn: Accounting[address] [facility], [place], [address], [facility] 12/19/2023 17:45:43 02/03/2024 text/html Carole Xiang Lehmanfreda o a 43 yo presenting for pap smear. Cheyenne at bedside for translation.Report s regular menstrual cycles every 28-30 days with light flow lasting 4 days changing pads/tampons every 12 hours on heaviest day. Denies any /LEGAL ASSOCIATE complaints.LMP: 01/25/2024Last pap smear: 12/20/2018 NILM HRHPV NegPap due: TodayPatient is currently sexually active with 1 male partner and has had 1 male partner in the past 10 + years. OSCAR CHAND NP Attn: Accounting[address] [facility], [place], [address], [facility] 02/03/2024 17:30:37 03/20/2024 text/html 43 y/o F here for medication refill. Pt states she is still having low back pain. Also having knee discomfort and hip discomfort. Patient reminded she has OA and she needs to be stretching and losing weight plus using appropriate shoes with good support. Meloxicam helps with her s/s. SHe is aware not to take on a daily basis. Pt states pain is all day and not exacerbated by anything in particular. Denies abdominal pain, SOB, CP, N/V/D. She is concerned over her fatty liver diagnosis. Reminded patient on LSM, no alcohol, no tylenol etc. Reviewed her last LFTs 05/2023 which were normal.Patient wants to get influenza vaccine. SHe has no contraindication. Liliana Spicer, INESSA Attn: Accounting[address] , [place], [address], [place] [facility] 03/20/2024 16:28:07 OBGyn Episode Ob Episode Information Episode Created Date Number of Fetuses Patient Bloodtype Patient rh Status Prepregnancy Weight lbs Domestic Partner Domestic Partner Phone Father Name Assistant To The Dean Status 06/17/19 15 1 129 CLOSED Fetus Data First Name Last Name Admitted to NICU Weight (g) Sex Living Outcome Pediatric Complications Fetus ID Race Codes Race Delivery Type [id number] Problems Problem Notes Problem Name Start Date End Date Resolution Snomed Code Not e Glucose tolerance test outsi de reference range 890804030 Gastroesophageal reflux disease 170739560 Vitamin D deficiency 89634244 Term delivered [address] 007 state 35386544 Cholo Calculation Initial Cholo Date Initial Exam Date Initial Exam Provider Initial Ultrasound Date Last Menstrual Period Date Ultra Sound Weeks Gestation 06/17/2014 0 Eighteen To Twenty Week Cholo Update Ultra Sound Date Fundal Height At Umbil Quickening Date Ultra Sound Latest Weeks Gestation Final Cholo Confirmed By Final Cholo Confirmed Date Final Cholo Date Ultra Sound Latest Days Gestation 0 [email or web address] 06/17/2014 015 0 Pre-maylin Flowsheet Flowsheet Date 06/17/2014 Bernard Score Blood Edema Fundus Height Fundus Units Glucose Ketones Leukocytes Nitrite Labor Signs Protein Cervic Dilation Cervic Effacement Cervic Station neg none 30 wks none negative none neg Type Weight in lbs Pre/Post Dialysis Refused 139.132034172273 BP Diastolic BP Location Tested BP Systolic BP Type 62 R arm 114 sitting Fetus Heart Rate Present A 145 Fetus Movement A Yes Comments Flowsheet Date 07/02/2014 Bernard Score Blood Edema Fundus Height Fundus Units Glucose Ketones Leukocytes Nitrite Labor Signs Protein Cervic Dilation Cervic Effacement Cervic Station 30 cm none Type Weight in lbs Pre/Post Dialysis Refused 143.401289651894 BP Diastolic BP Location Tested BP Systolic BP Type 68 L arm 100 sitting Fetus Heart Rate Present A 145 Present Fetus Movement A Yes Comments having a girl, will have margaux ural , breastfeed, [facility] - MEJIA .35 mg start 3 weeks after delivery, stress to patient no intercourse Flowsheet Date 07/22/2014 Bernard Score Blood Edema Fundus Height Fundus Units Glucose Ketones Leukocytes Nitrite Labor Signs Protein Cervic Dilation Cervic Effacement Cervic Station neg none 40 cm none negative none neg Type Weight in lbs Pre/Post Dialysis Refused 149.800037787091 BP Diastolic BP Location Tested BP Systolic BP Type 62 R arm 114 sitting Fetus Heart Rate Present A 156 Present Fetus Movement A Yes Comments GIRL Flowsheet Date 09/09/2014 Bernard Score Blood Edema Fundus Height Fundus Units Glucose Ketones Leukocytes Nitrite Labor Signs Protein Cervic Dilation Cervic Effacement Cervic Station Type Weight in lbs Pre/Post Dialysis Refused 134.340427893987 BP Diastolic BP Location Tested BP Systolic BP Type 76 R arm 110 sitting Fetus Heart Rate Present Fetus Movement Comments Menstrual History Last Menstrual Date Menses Monthly On Bcp Conception Prior Menses Frequency Hcg Plus Date Menarche Onset Age Delivery Information Delivery Date Delivery Type Labor Anesthesia Weeks Gestation Incision Type Labor Labor Length Hrs Delivered By Post Complications Tubal Sterilization Discharge Date Comments 5 36.1 Discharge Information Feeding Method Contraceptive Method Maternal HG B and HCT Levels Ob Episode Information Episode Created Date Number of Fetuses Patient Bloodtype Patient rh Status Prepregnancy Weight lbs Domestic Partner Domestic Partner Phone Father Name Assistant To The Dean Status 09/10/19 15 1 CLOSED Fetus Data First Name Last Name Admitted to NICU Weight (g) Sex Living Outcome Pediatric Complications Fetus ID Race Codes Race Delivery Type 2948.34 8 M Full Term 34103 Vaginal Cholo Calculation Initial Cholo Date Initial Exam Date Initial Exam Provider Initial Ultrasound Date Last Menstrual Period Date Ultra Sound Weeks Gestation 0 Eighteen To Twenty Week Cholo Update Ultra Sound Date Fundal Height At Umbil Quickening Date Ultra Sound Latest Weeks Gestation Final Cholo Confirmed By Final Cholo Confirmed Date Final Cholo Date Ultra Sound Latest Days Gestation 0 0 Menstrual History Last Menstrual Date Menses Monthly On Bcp Conception Prior Menses Frequency Hcg Plus Date Menarche Onset Age Delivery Information Delivery Date Delivery Type Labor Anesthesia Weeks Gestation Incision Type Labor Labor Length Hrs Delivered By Post Complications Tubal Sterilization Discharge Date Comments 8 None Discharge Information Feeding Method Contraceptive Method Maternal HG B and HCT Levels Ob Episode Information Episode Created Date Number of Fetuses Patient Bloodtype Patient rh Status Prepregnancy Weight lbs Domestic Partner Domestic Partner Phone Father Name Assistant To The Dean Status 09/10/19 15 1 CLOSED Fetus Data First Name Last Name Admitted to NICU Weight (g) Sex Living Outcome Pediatric Complications Fetus ID Race Codes Race Delivery Type 2494.75 6 M Prematur e Vaginal Cholo Calculation Initial Cholo Date Initial Exam Date Initial Exam Provider Initial Ultrasound Date Last Menstrual Period Date Ultra Sound Weeks Gestation 0 Eighteen To Twenty Week Cholo Update Ultra Sound Date Fundal Height At Umbil Quickening Date Ultra Sound Latest Weeks Gestation Final Cholo Confirmed By Final Cholo Confirmed Date Final Cholo Date Ultra Sound Latest Days Gestation 0 0 Menstrual History Last Menstrual Date Menses Monthly On Bcp Conception Prior Menses Frequency Hcg Plus Date Menarche Onset Age Delivery Information Delivery Date Delivery Type Labor Anesthesia Weeks Gestation Incision Type Labor Labor Length Hrs Delivered By Post Complications Tubal Sterilization Discharge Date Comments 4 None 36 blanquita Discharge Information Feeding Method Contraceptive Method Maternal HG B and HCT Levels
[2024-06-29 15:59] VITALS: BP 126/76; PULSE 88; RESP 16; TEMP 36.7; O2SAT 98
--- NOTE | 2024-06-29 16:20 | ED_ITS ---
HPI - Fall General Chief Complaint: Fall <Bhavani WhiteMaren Bass DATA WAREHOUSING SPECIALIST - Last Filed: 06/29/24 16:25> Stated Complaint: fall-bottom pain <Bhavanialayna Bass APRN - Last Filed: 06/29/24 16:25> Time Seen by Provider: 06/29/24 16:10 <Bhavani ChristopherMaren Bass DATA WAREHOUSING SPECIALIST - Last Filed: 06/29/24 16:25> Focused HPI: Patient is a 44-year-old non Mohawk-speaking, female who presents to the ER following a fall 13 days ago. She reports she slipped on ice and landed on her right buttocks/tailbone. Patient reports she is taking ibuprofen twice a day with no relief. She denies any previous injury, saddle anesthesia, one-sided numbness/tingling/weakness. Patient denies any previous medical history. GENERAL: Well-appearing, well-nourished, and in no acute distress. HEAD: Normocephalic, atraumatic. CHEST: Clear to auscultation. ?No respiratory distress. HEART: Regular rate and rhythm.? NEURO: ?Alert and oriented x3. Patient screened in triage and initial orders placed.? ?Additional care and disposition to be based upon?diagnostic testing and treatment. <Bhavani ChristopherMaren Bass DATA WAREHOUSING SPECIALIST - Last Filed: 06/29/24 16:25> Focused HPI: Patient is a 44-year-old non Mohawk-speaking, female who presents to the ER following a fall 13 days ago. She reports she slipped on ice and landed on her right buttocks/tailbone. Patient reports she is taking ibuprofen twice a day with no relief. She denies any previous injury, saddle anesthesia, one-sided numbness/tingling/weakness. Patient denies any previous medical history. GENERAL: Well-appearing, well-nourished, and in no acute distress. HEAD: Normocephalic, atraumatic. CHEST: Clear to auscultation. ?No respiratory distress. HEART: Regular rate and rhythm.? NEURO: ?Alert and oriented x3. Patient screened in triage and initial orders placed.? ?Additional care and disposition to be based upon?diagnostic testing and treatment. <Felisha Salazar PA-C - Last Filed: 06/30/24 00:56> Source: patient <OLI Arauz Last Filed: 06/30/24 00:56> Mode of arrival: ambulatory <Felisha Salazar PA-C - Last Filed: 06/30/24 00:56> Limitations: no limitations <OLI Arauz Last Filed: 06/30/24 00:56> History of Present Illness HPI Narrative: Agree with above HPI. [employer] arts and crafts instructor was utilized for assistance with translation. <OLI Arauz Last Filed: 06/30/24 00:56> Related Data Allergies/Adverse Reactions: Allergies Allergy/AdvReac Type Severity Reaction Status Date / Time No Known Allergies Allergy Verified 06/29/24 21:13 <Bhavani Bass APRN - Last Filed: 06/29/24 16:25> Review of Systems Review of Systems: All systems reviewed & are unremarkable except as noted in HPI. <Felisha Salazar PA-C - Last Filed: 06/30/24 00:56> All systems reviewed & are unremarkable except as noted in HPI and below <OLI Chahal Last Filed: 06/30/24 00:56> Exam Narrative: GENERAL: Well appearing, well-nourished, non-toxic, in no acute distress. HEAD: Normocephalic, atraumatic. RESPIRATORY: Airway patent, respirations nonlabored. CARDIOVASCULAR: Regular rate and rhythm MUSCULOSKELETAL: Moves all extremities. No gross deformities. No significant midline lumbar spinal tenderness. Diffuse tenderness throughout bilateral buttocks/coccyx region. Sensation intact. No palpable bony deformities. No a ppreciable hematomas. SKIN: Warm, dry, normal color. NEURO: A&O X3. Speech clear. Cranial nerves II-XII grossly intact. No ataxic movements. PSYCHIATRIC: Appropriate mood and affect. Normal interaction. <OLI Arauz Last Filed: 06/30/24 00:56> Course Vital Signs Vital signs: Vital Signs Temperature 98.0 F 06/29/24 15:59 Pulse Rate 88 06/29/24 15:59 Respiratory Rate 16 03/07/25 15:59 Blood Pressure 126/76 06/29/24 15:59 Pulse Oximetry 98 06/29/24 15:59 Oxygen Delivery Room Air 06/29/24 15:59 Temperature 97.8 F 06/29/24 21:07 Pulse Rate 87 06/29/24 21:07 Respiratory Rate 20 06/29/24 21:07 Blood Pressure 119/78 06/29/24 21:07 Pulse Oximetry 97 06/29/24 21:07 Oxygen Delivery Room Air 06/29/24 15:59 <Bhavani Bass, DATA WAREHOUSING SPECIALIST - Last Filed: 06/29/24 16:25> Vital Signs Temperature 98.0 F 06/29/24 15:59 Pulse Rate 88 06/29/24 15:59 Respiratory Rate 16 06/29/24 15:59 Blood Pressure 126/76 06/29/24 15:59 Pulse Oximetry 98 06/29/24 15:59 Oxygen Delivery Room Air 06/29/24 15:59 Temperature 97.8 F 06/29/24 21:07 Pulse Rate 87 06/29/24 21:07 Respiratory Rate 20 06/29/24 21:07 Blood Pressure 119/78 06/29/24 21:07 Pulse Oximetry 97 06/29/24 21:07 Oxygen Delivery Room Air 06/29/24 15:59 <Felisha Salazar PA-C - Last Filed: 06/30/24 00:56> MDM - Fall MDM Narrative Medical decision making narrative: Patient presented to ED status post fall on ice downstairs 13 days ago. Complaining of pain to her buttocks, tailbone. Vital signs stable. Neurovascularly intact. Patient?s injury is consistent with musculoskeletal etiology. No signs of neurologic or vascular compromise on physical examination. No evidence of cord compression or cauda equina. No significant midline spinal tenderness. No red flag symptoms. XR of right hip/pelvis negative. X-ray of sacrum/coccyx showing lucency in coccyx which may represent a fracture. Discussed this with patient. She is 13 days post injury. Feel she is safe for discharge home. Will refer to orthopedics for further evaluation as needed. Recommended that she continue Tylenol ibuprofen as needed for pain. Given return precautions. She agrees with plan. Discharged in stable condition. <Felisha Salazar PA-C - Last Filed: 06/30/24 00:56> Medical Records Attestation: I reviewed the patient's medical records. <Felisha Salazar PA-C - Last Filed: 06/30/24 00:56> Imaging Data Attestation: I personally reviewed and interpreted this imaging study as follows: <Felisha Salazar PA-C - Last Filed: 06/30/24 00:56> Radiologist's impression: ITS Impressions Hip/Pelvis X-Ray 06/29/24 16:42 IMPRESSION: No acute osseous abnormality pelvis and right hip. Sacrum and Coccyx X-Ray 06/29/24 21:35 IMPRESSION: Lucency in the coccyx which may indicate a fracture. Clinical correlation and follow-up advised <Felsiha Salazar PA-C - Last Filed: 06/30/24 00:56> Discharge Plan Discharge Clinical Impression: Coccyx contusion Qualifiers: Encounter type: initial encounter Qualified Code(s): S30.0XXA - Contusion of lower back and pelvis, initial encounter Fall down stairs Qualifiers: Encounter type: initial encounter Qualified Code(s): W10.8XXA - Fall (on) (fro m) other stairs and steps, initial encounter <Bhavani Bass APRN - Last Filed: 06/29/24 16:25> Patient Disposition: Home, Self-Care <Bhavani Bass APRN - Last Filed: 06/29/24 16:25> Condition: Stable <Bhavani Bass APRN - Last Filed: 06/29/24 16:25> Instructions: Antibiotic Form, Coccyx Injury (ED) <Bhavani Bass APRN - Last Filed: 06/29/24 16:25> Additional Instructions: Your imaging showed a possible fracture of your tailbone. Recommend Tylenol, ibuprofen, ice to tailbone. You may use a donut pillow to help with pain. Follow-up with orthopedics for further evaluation if needed. Call office to make appointment. Return to the ED if you experience worsening or severe pain, recurrent injury, numbness in groin or legs, going to the bathroom without meeting to, or any other symptoms of concern. <Bhavani Bass APRN - Last Filed: 06/29/24 16:25> Patient Language: Montserratian <Bhavani Bass APRN - Last Filed: 06/29/24 16:25> Prescriptions: No Action amoxicillin-pot clavulanate 875-125 mg tablet 1 tablet PO Q12H Qty: 20 0RF prednisone 50 mg tablet 50 mg PO DAILY Qty: 5 0RF polyethylene glycol 3350 [Miralax] 17 gram powder in packet 17 g PO DAILY 30 Days Qty: 30 0RF magnesium citrate [Citrate of Magnesia] Solution 300 ml PO DAILY PRN (Reason: constipation) 1 Days Qty: 296 0RF bisacodyl 5 mg tablet 10 mg PO ONCE PRN (Reason: constipation) Qty: 2 0RF <Bhavani Bass APRN - Last Filed: 06/29/24 16:25> Follow-up/Referrals: Dannielle,ELVIN Fodr [Primary Care Provider] - Britton Paige MD [Physician] - (ORTHOPEDICS) <Bhavani Bass APRN - Last Filed: 06/29/24 16:25> Time of Disposition: 21:53 <Bhavani Bass APRN - Last Filed: 06/29/24 16:25> 21:53 <Felisha Salazar PA-C - Last Filed: 06/30/24 00:56>
[2024-06-29 21:07] VITALS: BP 119/78; PULSE 87; RESP 20; TEMP 36.6; O2SAT 97
[2024-06-29] MEDS: KETOROLAC (*BKC) 60 MG/2 ML VIAL IM (21:09)
== END 2024-06-29 22:21 | disposition home or self-care (01) ==
PROVIDERS: Emergency Provider Physician Assistant; PCP Registered Nurse
DX: S30.0XXA Contusion of lower back and pelvis, initial encounter (principal); W00.0XXA Fall on same level due to ice and snow, initial encounter
CPT/HCPCS: 72220; 73502; 96372; 99284; J1885

== ENCOUNTER 2024-07-09 16:24 | Emergency (ER) | payer OTHER, SELFPAY ==
[2024-07-09 16:30] VITALS: BP 116/62; PULSE 95; RESP 16; TEMP 36.7; O2SAT 98
--- NOTE | 2024-07-09 16:48 | ED_ITS ---
HPI - Abdominal Pain General Stated Complaint: lower belly pain both sides Time Seen by Provider: 07/09/24 16:25 Source: patient and interpreter and translator Mode of arrival: ambulatory Limitations: no limitations History of Present Illness HPI narrative: Patient is a 44-year-old female who presents with lower abdominal pain that started this morning. Last bowel movement was today on arrival to clinic. States it was normal. Denies any urinary symptoms. Denies any nausea, vomiting. Patient reports pain is a 10/10. Denies any new exercises or movement were she could have pulled muscle. Has had history of cholecystectomy but still has appendix. Patient was seen here in April for constipation. Related Data Allergies Allergy/AdvReac Type Severity Reaction Status Date / Time No Known Allergies Allergy Verified 06/29/24 21:13 Review of Systems Review of Systems: All systems reviewed & are unremarkable except as noted in HPI and below Constitutional: Constitutional: Denies body ache(s), Denies chills, Denies fatigue, Denies fever(s), Denies headache(s), Denies malaise and Denies weakness Eyes: Eyes: Denies blurry vision, Denies irritation and Denies loss of vision ENT: Denies otalgia, Denies headache(s), Denies nasal discharge, Denies sinus pain and Denies sore throat Cardiovascular: Cardiovascular: Denies chest pain, Denies irregular heart rhythm and Denies dyspnea Respiratory: Respiratory: Denies dyspnea Gastrointestinal: Gastrointestinal: Reports abdominal pain, Denies melena, Denies hematochezia, Denies diarrhea, Denies nausea and Denies vomiting Musculoskeletal: Musculoskeletal: Denies back pain, Denies myalgias and Denies arthralgias Integumentary/Breasts: Skin/Breast: Denies pruritus and Denies rash Neurologic: Denies headache(s), Denies loss of vision and Denies weakness Psychiatric: Psychiatric: Reports no additional psychiatric complaints Endocrine: Endocrine: Denies fatigue PMFSH Comments At time of signature, agree with nursing past medical, surgical, social and family history. There is no relevant family history pertinent to the presenting complaint. Exam Const: General: cooperative, healthy appearing, comfortable, no acute distress and well nourished Nutritional Appearance: well nourished Orientation/consciousness: patient oriented x3 Limitations: no limitations HENMT: Head: normal to inspection, normocephalic and atraumatic Ears: hearing grossly normal bilaterally and external ears normal Face/Nose/Sinus: Normal external nose present, normal facial exam and face symmetric Face and sinus: normal facial exam and face symmetric Mouth: Yes lip normal Eyes: General: appearance normal, both eyes and all related structures Alignment and Position: alignment normal and position normal Periorbital: periorbital findings normal Eyelids: eyelids normal Pupils: Equal, round and reactive pupils present EOM: EOMs intact bilaterally Neck: Neck: normal visual inspection, full ROM and supple Chest: Chest palpation & inspection: normal inspection of the chest Resp: Effort & Inspection: normal respiratory effort and able to speak in complete sentences Auscultation: clear to auscultation bilaterally Cardio: Rate: regular rate Rhythm: regular rhythm Heart sounds: S1 normal heart sound present and S2 normal heart sound present GI: Inspection: normal to inspection GI Palp: Yes abdominal tenderness (Left lower quadrant), Yes Soft to palpation and No Guarding due to palpation present (GI) Auscultation: normal bowel sounds Skin: General skin exam: normal color and no rashes or lesions noted Neuro: General: patient oriented x3 and moves all extremities Cranial nerves: Yes Equal, round and reactive pupils present Speech: normal speech Gait exam (Neuro): Normal gait present Extrem: General: normal to inspection, full ROM and no edema Psych: Appearance: grossly normal and well kempt Mental Status: mental status grossly normal Speech and movement: Normal speech and movement present Affect: normal affect Attitude: cooperative Thought process: Normal thought process present Course Course Emergency Course: Patient instructed to go to emergency department. Patient states she will go this evening if she has times where she will go tomorrow. AMA paperwork filled out. Patient requires further workup evaluation including labs and imaging Portions of this record may have been created with voice recognition software Level of Care: Express Care Visit Vital Signs Vital signs: Vital Signs Temperature 36.7 C 07/09/24 16:30 Pulse Rate 95 07/09/24 16:30 Respiratory Rate 16 07/09/24 16:30 Blood Pressure 116/62 07/09/24 16:30 Pulse Oximetry 98 07/09/24 16:30 Oxygen Delivery Room Air 07/09/24 16:30 Temperature 36.7 C 07/09/24 16:30 Pulse Rate 95 07/09/24 16:30 Respiratory Rate 16 07/09/24 16:30 Blood Pressure 116/62 03/17/25 16:30 Pulse Oximetry 98 07/09/24 16:30 Oxygen Delivery Room Air 07/09/24 16:30 Reviewed MDM - Abdominal Pain MDM Narrative Medical decision making narrative: Patient instructed to go to emergency department. Patient states she will go this evening if she has times where she will go tomorrow. AMA paperwork filled out. Patient requires further workup evaluation including labs and imaging. Patient states the ER took too long when she was there 10 days ago for a bruised tailbone Differential Diagnosis Differential diagnosis: Likely abdominal pain, acute appendicitis, constipation, diverticulitis, endometriosis, gastroenteritis, pancreatitis and small bowel obstruction Medical Records Attestation: I reviewed the patient's medical records. Discharge Plan Discharge Clinical Impression: Abdominal pain Qualifiers: Abdominal location: left lower quadrant Qualified Code(s): R10.32 - Left lower quadrant pain Patient Disposition: Left Against Medical Advice Condition: Stable Patient Language: Persian Prescriptions: No Action amoxicillin-pot clavulanate 875-125 mg tablet 1 tablet PO Q12H Qty: 20 0RF prednisone 50 mg tablet 50 mg PO DAILY Qty: 5 0RF polyethylene glycol 3350 [Miralax] 17 gram powder in packet 17 g PO DAILY 30 Days Qty: 30 0RF magnesium citrate [Citrate of Magnesia] Solution 300 ml PO DAILY PRN (Reason: constipation) 1 Days Qty: 296 0RF bisacodyl 5 mg tablet 10 mg PO ONCE PRN (Reason: constipation) Qty: 2 0RF Follow-up/Referrals: Dannielle,ELVIN Ford [Primary Care Provider] - Time of Disposition: 17:11
== END 2024-07-09 17:17 | disposition left against medical advice (07) ==
PROVIDERS: Emergency Provider Nurse Practitioner Family; PCP Registered Nurse
DX: R10.32 Left lower quadrant pain (principal)
CPT/HCPCS: 99211; G0463

== ENCOUNTER 2024-07-10 16:39 | Emergency (ER) | payer OTHER, SELFPAY ==
--- NOTE | ~2024-07-10 | CT_ITS ---
CLINICAL INDICATION: Lower abdominal pain COMPARISON: 09/06/2023. TECHNIQUE: Multiple contiguous axial images of the abdomen and pelvis were performed following the ad ministration of with 100 mL Omnipaque-350 intravenous contrast The dose-length product (DLP) was 353.86 mGy-cm. Automated exposure control and iterative reconstruction technique were employed. FINDINGS/OBSERVATIONS: Visualized lower thorax: The bilateral lung bases are clear. The heart is of normal size, without pericardial effusion. Small hiatal hernia is present. Liver: The liver demonstrates homogeneous enhancement and is not enlarged measuring 17 cm in longitudinal di mension. Gallbladder and biliary system: The gallbladder is absent. Pancreas: The pancreas enhances homogeneously without ductal dilatation. Spleen: The spleen enhances homogeneously and is not enlarged measuring 10 cm in longitudinal dimension. Kidneys: The bilateral kidneys enhance symmetrically without hydronephrosis or renal calculi. Adrenal glands: Unremarkable. Gastrointestinal tract: Diverticulosis of the sigmoid colon with trace surrounding inflammatory change (prominence of the vas a recta) for which acute/early diverticulitis is suspected. No perforation. No drainable fluid collection is present. Appendix: The air-filled appendix is of normal caliber (axial series, images 116 through 136) Vasculature: Unremarkable. Lymph nodes: No pathologically enlarged or morphologically suspicious lymph nodes within the retroperitoneum or at the root of the mesentery. Pelvic structures: The bladder is minimally distended, and otherwise unremarkable. The uterus is anteverted and anteflexed. Body wall and musculoskeletal: Small fat-containing umbilical hernia. No significant degenerative disease within the lower thoracic or lumbosacral spine. IMPRESSION: Acute/early diverticulitis of the sigmoid colon without gross perforation or a drainable fluid collec tion. Reviewed, dictated and finalized at location A. IMPRESSION: Acute/early diverticulitis of the sigmoid colon without gross perforation or a drainable fluid collection.
[2024-07-10 16:47] VITALS: BP 137/66; PULSE 96; RESP 16; TEMP 36.6; O2SAT 98
--- NOTE | 2024-07-10 17:33 | ED_ITS ---
HPI - Abdominal Pain General Chief Complaint: Abdominal Pain <Rohan Garvey PA-C - Last Filed: 07/10/24 17:42> Stated Complaint: Abd pain since yesterday <Rohan Garvey PA-C - Last Filed: 07/10/24 17:42> Time Seen by Provider: 07/10/24 20:13 <Rohan Garvey PA-C - Last Filed: 07/10/24 17:42> Focused HPI: This is a 44-year-old female who presents to the ED for chief complaint of lower abdominal pain over the past couple of days. Patient reports the pain is most concentrated on the left side. Denies associated flank pain or radiation of the pain. Denies problems with bowel movements. Denies urinary symptoms, fevers, chills. GENERAL: Well-appearing, well-nourished, and in no acute distress. HEAD: Normocephalic, atraumatic. CHEST: Clear to auscultation. No respiratory distress. HEART: Regular rate and rhythm. ABD: Tenderness over the suprapubic abdomen. Soft and otherwise nontender NEURO: Alert and oriented x3. Patient screened in triage and initial orders placed. Additional care and disposition to be based upon diagnostic testing and treatment. 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) <Rohan Garvey PA-C - Last Filed: 07/10/24 17:42> Mode of arrival: ambulatory <Rohan Garvey PA-C - Last Filed: 07/10/24 17:42> Limitations: no limitations <Rohan Garvey PA-C - Last Filed: 07/10/24 17:42> History of Present Illness HPI narrative: I agree with the above HPI <Alexander Barron MD - Last Filed: 07/10/24 22:12> Related Data Allergies/Adverse Reactions: Allergies Allergy/AdvReac Type Severity Reaction Status Date / Time No Known Allergies Allergy Verified 07/10/24 16:40 <Rohan Garvey PA-C - Last Filed: 07/10/24 17:42> Review of Systems 2 Review of Systems: All systems reviewed & are unremarkable except as noted in HPI and below <Alexander Barron MD - Last Filed: 07/10/24 22:12> Exam 2 Narrative: APPEARANCE: Well appearing, no pain, no distress, well-nourished. HEAD: normocephalic, atraumatic. EYES: PERRLA/EOMI, conjunctivae clear. NOSE: Normal no drainage EARS:TMS clear with good light reflex. THROAT: Pharynx clear, no exudate. NECK: Supple. No adenopathy, no masses. RESPIRATORY: Airway patent, respirations nonlabored. Clear to auscultation bilaterally, no rales, rhonchi, wheezing. CARDIOVASCULAR: Regular rate and rhythm without murmurs rubs or gallops. ABDOMINAL: Left lower quadrant tenderness to palpation MUSCULOSKELETAL: Moves all extremities. Strength/ROM intact, No edema, No calf tenderness. NEURO: Alert. Cranial nerves II through XII intact. Good gait. Good coordination SKIN: Warm, dry. Normal Color <Alexander Barron MD - Last Filed: 07/10/24 22:12> Course Vital Signs Vital signs: Vital Signs Temperature 97.9 F 07/10/24 16:47 Pulse Rate 96 07/10/24 16:47 Respiratory Rate 16 07/10/24 16:47 Blood Pressure 137/66 07/10/24 16:47 Pulse Oximetry 98 07/10/24 16:47 Temperature 97.4 F L 07/10/24 19:38 Pulse Rate 80 07/10/24 19:38 Respiratory Rate 15 07/10/24 19:38 Blood Pressure 134/82 07/10/24 19:38 Pulse Oximetry 100 07/10/24 19:38 <Rohan Garvey PA-C - Last Filed: 07/10/24 17:42> Vital Signs Temperature 97.9 F 07/10/24 16:47 Pulse Rate 96 07/10/24 16:47 Respiratory Rate 16 07/10/24 16:47 Blood Pressure 137/66 07/10/24 16:47 Pulse Oximetry 98 07/10/24 16:47 Temperature 97.4 F L 07/10/24 19:38 Pulse Rate 80 07/10/24 19:38 Respiratory Rate 15 07/10/24 19:38 Blood Pressure 134/82 07/10/24 19:38 Pulse Oximetry 100 07/10/24 19:38 <Alexander Barron MD - Last Filed: 07/10/24 22:12> MDM - Abdominal Pain MDM Narrative Medical decision making narrative: 44-year-old female presents emergency department for evaluation for left lower quadrant abdominal tenderness to palpation. CT scan did show evidence of now on complicated diverticulitis. Patient is afebrile with no leukocytosis, hemoglobin 12.8. Patient has no acute abnormalities on her CMP. The lipase was negative. Urine was negative for urinary tract infection negative for hematuria. Patient has no underlying prior surgical history and no medication allergies. Patient was started on Augmentin the emergency department. Patient was advised to follow a clear liquid diet for the next few days. Patient encouraged close follow-up with GI. <Alexander Barron MD - Last Filed: 07/10/24 22:12> Differential Diagnosis Differential diagnosis: Likely abdominal pain, acute appendicitis, constipation, diverticulitis, gastroenteritis, pancreatitis and small bowel obstruction <Alexander Barron MD - Last Filed: 07/10/24 22:12> Lab Data Attestation: I reviewed the patient's lab results. <Alexander Barron MD - Last Filed: 07/10/24 22:12> Result diagrams: 07/10/24 17:38 07/10/24 17:38 <Rohan Garvey PA-C - Last Filed: 07/10/24 17:42> Labs: Lab Results 07/10/24 07/10/24 Range/Units 17:38 17:46 WBC 9.9 (4.5-10.0) K/mm3 RBC 4.32 (4.2-5.4) M/mm3 Hgb 12.8 (12.0-15.0) g/dL Hct 38.2 (37.0-47.0) % MCV 88.4 (80-100) fl MCH 29.6 (26-34) pg MCHC 33.5 (32-36) g/dl RDW 12.5 (11.5-14.5) % Plt Count 185 (150-375) k/mm3 MPV 11.5 H (7.4-10.4) fl Immature Gran % (Auto) 0.3 (0-0.5) % Neut % (Auto) 63.9 (45.5-73.1) % Lymph % (Auto) 27.3 (18.3-44.2) % [place] % (Auto) 6.6 (2.6-8.5) % Eos % (Auto) 1.6 (0-4.4) % Baso % (Auto) 0.3 (0.2-1.2) % Lymph # (Auto) 2.69 (0.9-3.2) K/mm3 [place] # (Auto) 0.7 H (0.1-0.6) K/mm3 Eos # (Auto) 0.2 (0-0.3) K/mm3 Baso # (Auto) 0.0 (0.0-0.1) K/mm3 Abs Immat Gran (auto) 0.03 (0.00-0.031) K/mm3 Absolute Neuts (auto) 6.3 (1.3-6.7) K/mm3 Absolute Nucleated RBC 0.000 (0.0-0.012) K/mm3 Nucleated RBC % 0.0 (0.0-0.2) % Sodium 137 (137-145) mmol/L Potassium 3.9 (3.4-5.0) mmol/L Chloride 101 (98-107) mmol/L Carbon Dioxide 28 (22-30) mmol/L Anion Gap 8 (4-12) mmol/L BUN 13 (7-17) mg/dL Creatinine 0.49 L (0.7-1.0) mg/dL Estim Creat Clear Calc Not Reportable Estimated GFR > 60 (59 - ) Glucose 141 H (65-110) mg/dL Calcium 9.0 (8.4-10.2) mg/dL Total Bilirubin 1.7 H (0.2-1.3) mg/dL AST 51 H (14-36) U/L ALT 77 H (6-35) U/L Alkaline Phosphatase 93 (38-126) U/L Total Protein 8.0 (6.3-8.2) g/dL Albumin 4.6 (3.5-5.1) g/dL Lipase 64 (23-300) U/L Urine Color Yellow (Yellow) Urine Appearance Clear (Clear) Urine pH 6.0 (5.0-9.0) Ur Specific [place] 1.020 (1.001-1.035) Urine Protein Negative (Negative) mg/dL Urine Glucose (UA) Negative (Negative) mg/dL Urine Ketones Negative (Negative) mg/dL Ur Blood (Man) Negative (Negative) Urine Nitrate Negative (Negative) Urine Bilirubin Negative (Negative) Urine Urobilinogen 1.0 (<2.0) mg/dL Leukocyte Esterase Rfl Negative (Negative) LOIDA/UL Urine Test Negative <Rohan Garvey PA-C - Last Filed: 07/10/24 17:42> Lab Results 07/10/24 07/10/24 Range/Units 17:38 17:46 WBC 9.9 (4.5-10.0) K/mm3 RBC 4.32 (4.2-5.4) M/mm3 Hgb 12.8 (12.0-15.0) g/dL Hct 38.2 (37.0-47.0) % MCV 88.4 (80-100) fl MCH 29.6 (26-34) pg MCHC 33.5 (32-36) g/dl RDW 12.5 (11.5-14.5) % Plt Count 185 (150-375) k/mm3 MPV 11.5 H (7.4-10.4) fl Immature Gran % (Auto) 0.3 (0-0.5) % Neut % (Auto) 63.9 (45.5-73.1) % Lymph % (Auto) 27.3 (18.3-44.2) % [place] % (Auto) 6.6 (2.6-8.5) % Eos % (Auto) 1.6 (0-4.4) % Baso % (Auto) 0.3 (0.2-1.2) % Lymph # (Auto) 2.69 (0.9-3.2) K/mm3 [place] # (Auto) 0.7 H (0.1-0.6) K/mm3 Eos # (Auto) 0.2 (0-0.3) K/mm3 Baso # (Auto) 0.0 (0.0-0.1) K/mm3 Abs Immat Gran (auto) 0.03 (0.00-0.031) K/mm3 Absolute Neuts (auto) 6.3 (1.3-6.7) K/mm3 Absolute Nucleated RBC 0.000 (0.0-0.012) K/mm3 Nucleated RBC % 0.0 (0.0-0.2) % Sodium 137 (137-145) mmol/L Potassium 3.9 (3.4-5.0) mmol/L Chloride 101 (98-107) mmol/L Carbon Dioxide 28 (22-30) mmol/L Anion Gap 8 (4-12) mmol/L BUN 13 (7-17) mg/dL Creatinine 0.49 L (0.7-1.0) mg/dL Estim Creat Clear Calc Not Reportable Estimated GFR > 60 (59 - ) Glucose 141 H (65-110) mg/dL Calcium 9.0 (8.4-10.2) mg/dL Total Bilirubin 1.7 H (0.2-1.3) mg/dL AST 51 H (14-36) U/L ALT 77 H (6-35) U/L Alkaline Phosphatase 93 (38-126) U/L Total Protein 8.0 (6.3-8.2) g/dL Albumin 4.6 (3.5-5.1) g/dL Lipase 64 (23-300) U/L Urine Color Yellow (Yellow) Urine Appearance Clear (Clear) Urine pH 6.0 (5.0-9.0) Ur Specific [place] 1.020 (1.001-1.035) Urine Protein Negative (Negative) mg/dL Urine Glucose (UA) Negative (Negative) mg/dL Urine Ketones Negative (Negative) mg/dL Ur Blood (Man) Negative (Negative) Urine Nitrate Negative (Negative) Urine Bilirubin Negative (Negative) Urine Urobilinogen 1.0 (<2.0) mg/dL Leukocyte Esterase Rfl Negative (Negative) LOIDA/UL Urine Test Negative <Alexander Barron MD - Last Filed: 07/10/24 22:12> Imaging Data Radiologist's impression: ITS Impressions Abdomen/Pelvis CT 07/10/24 20:26 IMPRESSION: Acute/early diverticulitis of the sigmoid colon without gross perforation or a drainable fluid collection. <Rohan Garvey PA-C - Last Filed: 07/10/24 17:42> ITS Impressions Abdomen/Pelvis CT 07/10/24 20:26 IMPRESSION: Acute/early diverticulitis of the sigmoid colon without gross perforation or a drainable fluid collection. <Alexander Barron MD - Last Filed: 07/10/24 22:12> Discharge Plan Discharge Clinical Impression: Diverticulitis <Rohan Garvey PA-C - Last Filed: 07/10/24 17:42> Patient Disposition: Home, Self-Care <Rohan Garvey PA-C - Last Filed: 07/10/24 17:42> Condition: Stable <Rohan Garvey PA-C - Last Filed: 07/10/24 17:42> Instructions: Antibiotic Form, Diverticulitis (DC), Clear Liquid Diet (ED), Abdominal Pain (ED) <Rohan Garvey PA-C - Last Filed: 07/10/24 17:42> Additional Instructions: Antibiotic as directed until completed. Acetaminophen and ibuprofen for pain control. Clear liquid diet for the next 1-3 days. Have close follow-up with GI. If you have any worsening symptoms then please call or return to the emergency department. <Rohan Garvey PA-C - Last Filed: 07/10/24 17:42> Patient Language: Dominican <Rohan Garvey PA-C - Last Filed: 07/10/24 17:42> Prescriptions: New amoxicillin-pot clavulanate 875-125 mg tablet 1 tablet PO Q12H 7 Days Qty: 14 0RF No Action prednisone 50 mg tablet 50 mg PO DAILY Qty: 5 0RF <Rohan Garvey PA-C - Last Filed: 07/10/24 17:42> Follow-up/Referrals: Dannielle,ELVIN Ford [Primary Care Provider] - Steve Gray MD [Physician] - <Rohan Garvey PA-C - Last Filed: 07/10/24 17:42>
[2024-07-10 17:43] LABS: Basophils Percent Auto 0.3 % (0.2-1.2); Eosinophils Absolute Auto 0.2 K/mm3 (0-0.3); Eosinophils Percent Auto 1.6 % (0-4.4); Hematocrit 38.2 % (37.0-47.0); Hemoglobin 12.8 g/dL (12.0-15.0); Immature Granulocyte Absolute 0.03 K/mm3 (0.00-0.031); Immature Granulocyte Percent A 0.3 % (0-0.5); Lymphocytes Absolute Auto 2.69 K/mm3 (0.9-3.2); Lymphocytes Percent Auto 27.3 % (18.3-44.2); Mean Corpuscular HGB Conc 33.5 g/dl (32-36); Mean Corpuscular Hemoglobin 29.6 pg (26-34); Mean Corpuscular Volume 88.4 fl (80-100); Mean Platelet Volume 11.5 fl (7.4-10.4); Monocytes Absolute Auto 0.7 K/mm3 (0.1-0.6); Monocytes Percent Auto 6.6 % (2.6-8.5); Neutrophils Absolute Auto 6.3 K/mm3 (1.3-6.7); Neutrophils Percent Auto 63.9 % (45.5-73.1); Platelet Count Result 185 k/mm3 (150-375); Red Blood Count 4.32 M/mm3 (4.2-5.4); Red Cell Distribution Width 12.5 % (11.5-14.5); White Blood Count 9.9 K/mm3 (4.5-10.0)
[2024-07-10 17:54] LABS: Add Urine Microscopic? NO; Appearance Urine Clear (Clear); Bilirubin Urine Negative (Negative); Blood Urine Negative (Negative); Color Urine Yellow (Yellow); Glucose Urine UA Negative (Negative); Ketones Urine Negative (Negative); Leukocyte Esterase Ur Negative LEU/UL (Negative); Nitrate Urine Negative (Negative); Protein Urine Negative (Negative)
[2024-07-10 17:55] LABS: Alanine Aminotransferase 77 U/L (6-35); Albumin Level 4.6 g/dL (3.5-5.1); Alkaline Phosphatase 93 U/L (38-126); Anion Gap 8 mmol/L (4-12); Aspartate Amino Transferase 51 U/L (14-36); Bilirubin,Total 1.7 mg/dL (0.2-1.3); Blood Urea Nitrogen 13 mg/dL (7-17); Carbon Dioxide 28 mmol/L (22-30); Chloride 101 mmol/L (98-107); Estimated Glomerular Filt Rate > 60; Glucose 141 mg/dL (65-110); Lipase 64 U/L (23-300); Potassium 3.9 mmol/L (3.4-5.0); Sodium 137 mmol/L (137-145)
--- OUTSIDE RECORDS SUMMARY | 2024-07-10 17:58 | XMS_ITS | Data Portability ---
Author Organization [facility] [place] [facility] Address [address] [facility] [place] [id number] Care Team Providers Care Cardiovascular Tech Name Role Phone LILIANA YBARRA Primary Care Provider Assessment Encounter Date Assessment Date Assessment LastModified by Organization Details LastModified Time 07/10/2024 07/10/2024 Visit today completed with press assistant and feeder #[id number] Yu. Not available 07/10/2024 16:28:36 Plan of Treatment Reminders Order Date Submit Date Provider Last Modified By Organization Details Last Modified Time Details Appointments ANY 15 2024 02:45P M JANNA CRYSTAL NP Not available Not available Not available Lab cytology report, thin prep, smear or scraping, cervical or vaginal 2023 024 [facility], [address] [facility], [facility] [address], [place], [address], 02/10/2024 13:11:17 urinalysi s, dipstick 2023 024 YAKIMA In-Office Order, Internal Use Only DO Not Attach Compendium DO Not Attach Compendium, Do Not Delete/merge, [id number] 11/17/2023 15:29:25 culture, urine 2023 024 [facility], [address] [facility], [address], [place], [address], 11/19/2023 03:36:53 Referral None recorded. Procedures None recorded. Surgeries None recorded. Imaging None recorded. Medication Orders Zithromax Z-Ramírez 250 mg tablet 2023 024 [facility], [address] [place] [address], [id number], 03/21/2024 14:43:55 Medrol (Ramírez) 4 mg tablets in a dose pack [facility]23 [facility], [address] [place] [address], [id number], 03/21/2024 14:43:56 meloxicam 15 mg tablet 2023 [facility]A [facility], [address] [place] [address], [id number], 03/21/2024 14:43:54 meloxicam 15 mg tablet 2023 [facility] [address] [place] [address], [id number], 12/19/2023 17:59:25 Macrobid 100 mg capsule 2023 [facility]IM[facility], [address] [place] [address], [id number], 12/19/2023 16:48:18 loratadin e 10 mg tablet 2023 [facility], [address] [place] [address], [id number], 11/17/2023 15:31:28 fluticaso ne propionat e 50 mcg/actua tion nasal spray,[facility] 2023 YAKIMA [facility], [address] [place] [address], [id number], 11/17/2023 15:31:34 meloxicam 15 mg tablet 2023 [facility], [address] [place] [address], [id number], 11/17/2023 15:31:28 Patient TargetsNo targets recorded. Patient Instructions Encounter Date Encounter Id Patient Instructions Last Modified By Organization Details Last Modified Time 11/17/2023 [id number] dolor al orinar (disuria): instrucciones de cuidado - [painful urination (dysuria): care instructions] [email or web address] Not available 11/17/2023 15:23:41 A healthy lifestyle: care instructions [email or web address] Not available 11/17/2023 15:23:41 sinusitis cr chantel: instrucciones de cuidado - [chronic sinusitis: care instructions] [email or web address] Not available 11/17/2023 15:23:41 cuidado de la espalda y prevenci n de lesiones: instrucciones de cuidado - [back care and preventing injuries: care instructions] Not available 11/17/2023 15:23:41 enfermedad de reflujo gastroesof gico (GERD): instrucciones de cuidado - [gastroesophageal reflux disease (GERD): care instructions] Not available 11/17/2023 15:25:31 12/19/2023 [id number] A healthy lifestyle: care instructions [email or web address] Not available 12/19/2023 17:19:24 cuidado de la espalda y prevenci n de lesiones: instrucciones de cuidado - [back care and preventing injuries: care instructions] [email or web address] Not available 12/19/2023 17:19:24 artritis: instrucciones de cuidado - [arthritis: care instructions] [email or web address] Not available 12/19/2023 17:19:24 artritis de cadera: ejercicios - [hip arthritis: exercises] [email or web address] Not available 12/19/2023 17:19:24 artritis de aura: ejercicios - [neck arthritis: exercises] [email or web address] Not available 12/19/2023 17:19:23 artritis de pie: ejercicios - [foot arthritis: exercises] [email or web address] Not available 12/19/2023 17:19:24 artritis de la parte baja de la espalda: ejercicios - [low back arthritis: exercises] [email or web address] Not available 12/19/2023 17:19:24 Lose weight stretching exercises avoid heavy lifting or activities that increase pain level ice/heat as necessary [email or web address] Not available 12/19/2023 17:19:07 02/03/2024 [id number] A healthy lifestyle: care instructions [email or web address] Not available 02/03/2024 17:30:03 You had your [...] for sexually transmitted infection and unplanned . [email or web address] Not available 02/03/2024 17:13:47 03/20/2024 [id number] vacuna contra la influenza (gripe): instrucciones de cuidado - [influenza (flu) vaccine: care instructions] [email or web address] Not available 03/20/2024 16:27:47 A healthy lifestyle: care instructions [email or web address] Not available 03/20/2024 16:24:51 Sinusitis aguda: Instrucciones de cuidado - [Acute Sinusitis: Care Instructions] [email or web address] Not available 03/20/2024 16:24:51 cuidado de la espalda y prevenci n de lesiones: instrucciones de cuidado - [back care and preventing injuries: care instructions] [email or web address] Not available 03/20/2024 16:24:51 artritis: instrucciones de cuidado - [arthritis: care instructions] [email or web address] Not available 03/20/2024 16:24:51 artritis de cadera: ejercicios - [hip arthritis: exercises] [email or web address] Not available 03/20/2024 16:24:50 artritis de aura: ejercicios - [neck arthritis: exercises] [email or web address] Not available 03/20/2024 16:24:50 artritis de pie: ejercicios - [foot arthritis: exercises] [email or web address] Not available 03/20/2024 16:24:50 artritis de la parte baja de la espalda: ejercicios - [low [...] influenza vaccine yarauz Not available 03/20/2024 16:19:53 07/10/2024 [id number] A healthy lifestyle: care instructions Not available 07/10/2024 16:46:09 Sent patient immediately to ER for 02/01 abdominal pain with RLQ and LLQ tenderness on exam. She states she understands the importance of proceeding to the ER and that she will go directly to [facility] via personal vehicle for further evaluation and treatment. Report called to Dr. Barron at [facility]. Not available 07/10/2024 16:45:53 Reason for Referral None Reported. Results Created Date Observation Date Name Description Value Unit Range Abnormal Flag Note LastModifiedBy Organization Detail LastModifiedTime 11/17/19 24 11/19/2023 URINE CULTU REJOSEPH urine culture, routine FINAL REPORT Not Available [facility] ([facility]) [address] [facility], [place], [address], 11/19/2023 03:36:52 11/17/19 24 11/19/2023 URINE CULTU REJOSEPH result 1 NO GROWTH Not Available [facility] ([facility]) [address] [facility], [place], [address], 11/19/2023 03:36:52 11/17/19 24 11/17/2023 urina lysis [...] 11/17/2023 urina lysis , dipst ick Specific Ruby 1.015 Not Available In-Off ice Order Internal Use Only DO Not Attach Compendium DO Not Attach Compendium, Do Not Delete/merge, 11/17/2023 15:13:43 11/17/19 24 11/17/2023 urina lysis , dipst ick Ketone Negati ve Not Available In-Office Order Internal Use Only DO Not Attach Compendium DO Not Attach Compendium, Do Not Delete/merge, [id number] 11/17/2023 15:13:43 11/17/19 24 11/17/2023 urina lysis , dipst ick Bilirubin Negati ve Not Available In-Office Order Internal Use Only DO Not Attach Compendium DO Not Attach Compendium, Do Not Delete/merge, [id number] 11/17/2023 15:13:43 11/17/19 24 11/17/2023 urina lysis , dipst ick Glucose Negati ve Not Available In-Office Order Internal Use Only DO Not Attach Compendium DO Not Attach Compendium, Do Not Delete/merge, [id number] 11/17/2023 15:13:43 11/17/19 24 11/17/2023 urina lysis [...] rmed. No serum gel recei joel. TEST: [id number] 5 RPR, Rfx Q[place] RPR/[place] [address] 5 HIV Ab/p2 4 Ag with Refle x CONTA CTED TAYKA LAB[facility] RE AT YOUR FACIL ITY ON 02/05 . Not Available [facility] ([facility]) [address], [place], [address], 02/06/2024 13:09:47 02/03/2002/06/2024 RPR, RFX QN RPR/C ONFIR M TP RPR - Test not perfo rmed. No serum gel recei joel. CONTA CTED TAYKA [facility] RE AT YOUR FACIL ITY ON 02/05 . Not Available [facility] ([facility]) [address] [facility], [place], [address], 02/06/2024 13:09:47 02/03/2002/06/2024 HIV AB/P2 4 AG WITH REFLE X HIV Ab/P24 Ag screen - Test not perfo rmed. No serum gel recei joel. CONTA CTED TAYKA [facility] RE AT YOUR FACIL ITY ON 02/05 . Not Available [facility] ([facility]) [address] [facility], [place], [address], 02/06/2024 13:09:48 02/03/2002/08/2024 IGP, APTIM A HPV, RFX 16/18 ,45 HPV aptima NEGATI VE negati ve This nucle ic acid ampli ficat ion test detec ts fourt een high- risk HPV types (16,1 8,31, 33,35 ,39,4 5,51, 52,56 ,58,5 9,66, 68) witho ut diffe renti ation . Not Available [facility] ([facility]) [address] [facility], [place], [address], 02/10/2024 13:11:17 02/03/2002/10/2024 IGP, APTIM A HPV, RFX 16/18 ,45 diagnosis: COMMEN T NEGAT PAULETTE FOR INTRA EPITH ELIAL LESIO N OR SHAILESH ESPINAL . Not Available [facility] ([facility]) [address] [facility], [place], [address], 02/10/2024 13:11:17 02/03/2002/10/2024 IGP, APTIM A HPV, RFX 16/18 ,45 specimen adequacy: COMMEN T Satis facto ry for evalu ation . Endoc ervic al and/o r squam ous metap lasti c cells (endo cervi sergio compo nent) are prese nt. Not Available [facility] ([facility]) [address] [facility], [place], [address], 02/10/2024 13:11:17 02/03/2002/10/2024 IGP, APTIM A HPV, RFX 16/18 ,45 clinician provided ICD10: CHRIST Winn Z12.4 Not Available [facility] ([facility]) [address] [place], [address], 02/10/2024 13:11:17 02/03/2002/10/2024 IGP, APTIM A HPV, RFX 16/18 ,45 performed by: CHRIST Nair ams, Cytopa winn (ASCP ) Not Available [facility] ([facility]) [address] [place], [address], 02/10/2024 13:11:17 02/03/2002/10/2024 IGP, APTIM A HPV, RFX 16/18 ,45 . . Not Available [facility] ([facility]) [address] [place], [address], 02/10/2024 13:11:17 02/03/2002/10/2024 IGP, APTIM A HPV, RFX 16/18 ,45 note: CHRIST Winn The Pap smear is a scree nigel test desig greg to aid in the detec tion of sherita ligna nt and malig nant condi tions of the uteri ne cervi x. It is not a diagn ostic proce dure and shoul d not be used as the sole means of detec ting cervi sergio cance r. Both false -posi tive and false -nega tive repor ts do occur . Not Available [facility] ([facility]) [address] [place], [address], 02/10/2024 13:11:17 02/03/2002/10/2024 IGP, APTIM A HPV, RFX 16/18 ,45 test methodology: CHRIST Winn This liqui d based ThinP rep(R ) pap test was linnea garza with the use of an image guide emi owen. Not Available [facility] ([facility]) [address] [facility], [place], [address], 02/10/2024 13:11:17 02/03/20 24 02/10/2024 IGP, APTIM A HPV, RFX 16/18 ,45 HPV genotype reflex COMMEN T Crite daisy not met, HPV Genot ype not perfo rmed. Not Available [facility] ([facility]) [address] [facility], [place], [address], 02/10/2024 13:11:17 11/21/19 24 11/21/2023 CT, lumba r spine , w/o contr ast No observ ation record ed. [address], [address], 12/19/2023 17:44:21 02/10/20 24 02/10/2024 XR, kidne y + urete r + bladd er No observ ation record ed. [address], [address], 02/10/2024 16:49:21 05/22/19 25 05/22/2024 XR, abdom en No observ ation record ed. [address], [address], 06/07/2024 16:58:48 06/26/19 25 06/21/2024 MAMMO , scree nigel, bilat eral No observ ation record ed. [email or web address] [facility] [address] [place], [address], 06/27/2024 16:13:51 06/30/19 25 06/29/2024 XR, hip + pelvi s, unila teral , 2 or 3 view No observ ation record ed. [address], [address], 07/02/2024 12:12:13 06/30/19 25 06/29/2024 XR, sacru m + coccy x No observ ation record ed. [facility] [address] [facility] [address], [place], [address], 07/02/2024 12:13:43 Result Notes None recorded. Problems Name Problem SNOMED Code Status Onset Date Resolution Date Notes Provider Name and Address Organization Details Recorded Time Body mass index 30+ - obesity 971268474 Completed 201710/29/2020 INESSA Mehta Attn: Navin g,[address] [facility], [place], [address], [place] [facility] 3 17:13:59 Menstrua l cramp 518502877 Completed 201702/01/2019 Jackeline Causey RN [place], [place] [facility] 9 14:28:07 Candidia sis 76544724 Completed 02/01/2019 [place] [facility] 9 14:28:15 Impaired glucose toleranc e 9717401 Active 2020 [place]eline [place] [facility] 3 12:45:12 Steatosi s of liver 043388950 Active 2020 LORENA Sellers, [place] [facility] 3 12:45:12 Vitamin D deficien cy 31334196 Completed 02/01/2019 INESSA Mehta Attn: Navin g,[address] [facility], [place], [address], [place] [facility] 2 16:40:46 Vitamin D deficien cy 22756604 Active 2020 Jackeline Cause[place] [facility] 3 12:45:12 Chronic maxillar y sinusiti s 14597701 Active 2021 Jackeline [place] [facility] 3 12:45:12 Glucose toleranc e test outside referenc e range 903815072 Completed 02/01/2019 Jackeline Causey RN null, [place] - [place] 9 14:27:59 Glucose toleranc e test outside referenc e range 787184119 Completed Deonte Bey [place] [facility] 5 17:31:01 Body mass index 30+ - obesity 386838370 Active 2022 Liliana Ybarra [facility] Attn: Accountin g,[address] [facility], [place], [address], [place] [facility] 3 17:13:59 Mixed hyperlip idemia 090210063 Active 2022 Liliana Ybarra [facility] Attn: Accountin g,[address] [facility], [place], [address], [place] - [facility] 3 17:13:59 Chronic headache disorder 110822874 Active 2022 Liliana Ybarra [facility] Attn: Accountin g,[address] , [place], [address], [place] [facility] 3 17:13:59 History of calculus of kidney 651967824 Active 2022 Liliana Ybarra [facility] Attn: Accountin g,[address] , [place], [address], [place] [facility] 3 17:13:59 Obesity 598488154 Active 2022 Liliana Ybarra [facility] Attn: Accountin g,[address] , [place], [address], [place] [facility] 3 17:13:59 Mastodyn ia of bilatera l breasts 04183664694 705858 Active 2022 Liliana Ybarra [facility] Attn: Accountin g,[address] [facility], [place], [address], [place] [facility] 3 17:13:58 Gastroes ophageal reflux disease 564567226 Active Jackeline Cause[place] [facility] 3 12:45:12 Gastroes ophageal reflux disease 658201307 Completed Deonte [place]claughlin[place] [facility] 5 17:31:01 Vitamin D deficien cy 23224551 Completed Deonte [place]cl[place] [facility] 5 17:31:01 Bacteria l vaginosi s 858569124 Completed 202309/29/2023 Removal Reason: resolved GUALBERTO MehtaSHEFALI Attn: Accountin g,[address] [facility], [place], [address], [place] [facility] 4 16:11:19 Thoracic spondylo sis 565927796 Active 2023 [facility] Attn: Accountin g,[address] [facility], [place], [address], [place] [facility] 4 17:00:42 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 018628837 Active 2023 Jackeline [place] [facility] 4 15:51:09 Term pregnanc y delivere d 73489661 Completed 02/01/2019 Jackeline [place] [facility] [place] 14:27:46 Term pregnanc y delivere d 38825416 Completed Deonte [place]claughlin[place] [facility] 5 17:31:01 Postpart [facility] 79321251 Completed 02/01/2019 Jackeline [place] [facility] 14:28:18 Postpart [facility] 32600062 Completed Deonte [place]cl[place] [facility] 5 17:31:01 Acute urinary tract infectio n 689358847 Completed 02/01/2019 Jackeline [place] [facility] 9 14:28:11 Obstruct ion of milk duct 961028187 Completed 02/01/2019 [place]eline [place] [facility] 14:27:50 Obesity 342150178 Completed 201608/22/2017 PAMELLA Mehta Attn: Navin diego,[address] [facility], [place], [address], [facility] - SI 3 17:13:59 Spasm of back muscles 603697839 Completed 201602/01/2019 Jackeline Causey RN null, [facility] 9 14:27:41 Headache 24650346 Completed 201602/01/2019 Jackeline Causey RN null, [facility] 4 15:50:47 Problem Notes None recorded. Procedures Surgical History Date Name Laterality Status Provider Name and Address Organization Details Recorded Time 02/03/20 24 Date of Last Pap Smear completed OSCAR CHAND NP Attn: Accounting,[address] [facility], [place], [address], [facility] 02/03/2024 17:28:55 03/21/20 23 Date of Last Mammogram completed Jackeline Causey RN [facility] 03/20/2024 15:38:49 01/14/20 23 Dilation and Curettage completed Jackeline Causey RN [facility] 01/14/2023 13:00:05 10/18/19 18 Control Implant Removal completed Sujata Dillard PA-C Attn: Accounting,[address] [facility], [place], [address], [facility] - SI 10/17/2017 14:44:00 09/10/19 15 Control Implant Insertion completed Deonte Bey [place] - [place] 09/09/2014 17:35:00 04/25/19 03 Cholecystectomy completed Sarita Potts MA [place] - [place] 09/09/2014 15:54:11 Imaging Results Imaging Date Name Status LastModified by Organiz ation Details LastModified Time 11/21/2023 CT, lumbar spine, w/o contrast completed [place] [address], [place], [address], 12/19/2023 17:44:21 02/10/2024 XR, kidney + ureter + bladder completed [address] [place] [address], [address], 02/10/2024 16:49:21 05/22/2024 XR, abdomen completed [address] [place] [address], [address], 06/07/2024 16:58:48 06/21/2024 MAMMO, screening, bilateral completed [email or web address] [facility] [address], [place], [address], 06/27/2024 16:13:51 06/29/2024 XR, hip + pelvis, unilateral, 2 or 3 view completed [address], [address], 07/02/2024 12:12:13 06/29/2024 XR, sacrum + coccyx completed [address], [address], 07/02/2024 12:13:43 Procedure Notes None recorded. Medical Equipment None [...] propionate 50 mcg/actuati on nasal spray,suspe nsion Fate 1 spray every day by intranasa l [...] Not Available Not Available Sprintec (28) 0.25 mg-0.035 mg tablet Please specify direction s, refills and [...] completed Not Available Not Available Not Available Grenola Oil 1,000 mg capsule Take 1 capsule [...] active Not Available Not Available Not Lorenzo labliliane Nexplanon 68 mg subdermal implant Inject 1 [...] active Not Available Not Available Not Lorenzo labliliane Xulane 150 mcg-35 mcg/24 hr transdermal patch [...] Updated DateTime 4 146.69 cm 30.4 kg/m2 37148.7 g 98 [degF] 92 /min 112 mm[Hg] 78 mm[Hg] Moi Wong [place] [facility] 4 14:59:35 Date Recorded Body height Body temperature Body mass index (BMI) Body weight Oxygen saturation Oxygen saturation in Arterial blood by Pulse oximetry Heart rate Systolic blood pressure Diastolic blood pressure Provider Name and Address Organization Details Last Updated DateTime 4 146.69 cm 98.1 [degF] 30.4 kg/m2 44177.7 g 97 % 97 % 94 /min 108 mm[Hg] 70 mm[Hg] Shanti winn MA [facility] 4 16:36:35 Date Recorded Body height Body mass index (BMI) Body weight Heart rate Systolic blood pressure Diastolic blood pressure Provider Name and Address Organization Details Last Updated DateTime 4 146.69 cm 30.4 kg/m2 93768.4 4 g 93 /min 120 mm[Hg] 81 mm[Hg] Maryellen Wilder MA [facility] 4 17:15:44 Date Recorded Body height Body mass index (BMI) Body weight Oxygen saturation Oxygen saturation in Arterial blood by Pulse oximetry Heart rate Body temperature Systolic blood pressure Diastolic blood pressure Provider Name and Address Organization Details Last Updated DateTime 4 146.69 cm 30.7 kg/m2 44871.0 8 g 97 % 97 % 90 /min 98 [degF] 114 mm[Hg] 68 mm[Hg] Jackeline Causey RN [facility] 4 15:50:22 Date Recorded Body height Body mass index (BMI) Body weight Oxygen saturation Oxygen saturation in Arterial blood by Pulse oximetry Heart rate Respiratory rate Body temperature Systolic blood pressure Diastolic blood pressure Provider Name and Address Organization Details Last Updated DateTime 5 146.69 cm 31.4 kg/m2 07730.2 6 g 98 % 98 % 86 /min 16 /min 98.1 [degF] 128 mm[Hg] 75 mm[Hg] Sydni Parham MA [facility] 5 15:57:51 Social History Question Answer Notes LastModified by Organizat ion Details LastModified Time Tobacco Smoking Status Never Smoker Leidy No MA null, [facility] 04/08/2014 17:08:12 Do You Have An Advance [...] Date Of Your Most Recent Tobacco Screening? 07/10/2024 [email or web address] Information not available 07/10/2024 How Many Children Do You Have? 3 [...] Anxious, Or Unable To Sleep At Night)? [id number] Information not available 11/30/2021 Do You Use [...] N Blood Diseases N Hyperthyroidism N Blood Transfusion N MRSA N Blood disorders N Emphysema N Blood Clots N COPD N Depression N Pneumonia N Premature N Peripheral Arterial Disease N Edema N TIA N Headaches/Migraines N Anxiety Disorder N Obesity N Infertility N Polyps N Acid Reflux (GERD) Y Hematuria N [...] Disorder N Colon Polyps N Heart Attack (MA) N Diabetes N Cardiomyopathy N Blood Transfusions [...] Recorded Time Tdap 5 completed Not Available [facility] 03/01/2023 09:39:59 Influenza, split virus, quadrivalent, PF 9 completed Not Available [facility] 05/12/2019 02:38:14 Influenza, split virus, quadrivalent, PF [...] SNOMED-CT Code Diagnosis ICD10 Code Diagnosis Note [id number] LORENA Champagne (OIL ANALYST) [address] [place] [phone] 04/08/2014 16:37:04 04/09/2014 14:11:02 [id number] Deonte Bey Phil (OIL ANALYST) [address] [place] [phone] 05/20/2014 16:24:50 05/20/2014 17:37:40 [id number] Acute urin aleshia tract infection 079813318 [id number] COLBY Dill (OIL ANALYST) [address] [place] [phone] 0 06/17/2014 09:32:36 06/17/2014 10:46:22 [id number] Advanced m aternal age 342087260 Vitamin D deficiency 81824891 [id number] COLBY Dill (OIL ANALYST) [address] [place] [phone] 07/02/2014 09:27:25 07/02/2014 10:45:56 Normal [id number] [facility] nning surveillance [id number] Gastroesop hageal reflux disease 219352578 Vitamin D deficiency 33781554 Glucose to lerance test outside reference range 902764199 [id number] LORENA Champagne (OIL ANALYST) [address] [place] [phone] 0 07/22/2014 16:25:15 07/22/2014 16:52:30 Normal 78757705 Advanced m aternal age 945464478 Glucose to lerance test outside reference range [id number] Phil (OIL ANALYST) [address] [place] [phone] 0 09/09/2014 15:04:17 09/09/2014 16:43:10 state [id number] [facility] nning surveillance [id number] Insertion of subcutaneous contraceptive [id number] [facility] ion care management [id number] Rosanne Villarreal (OIL ANALYST) [address] [place] [phone] 0 10/08/2014 09:55:11 10/08/2014 10:35:57 Subcutaneous contraceptive implant palpable 053524544 [id number] LORENA Champagne (OIL ANALYST) [address] [place] [phone] 12/16/2014 15:34:09 12/17/2014 12:09:38 Subcutaneous contraceptive implant palpable 118435778 Family candelario nning surveillance [id number] Active or passive immunization 956973003 [id number] OLI Zapata (Adult Med) [address] [place] [phone] 0 11/19/2015 12:24:00 11/19/2015 13:33:39 Obstruction of milk duct 269836275 N64.89 Advised warm compress and warm shower to help with pain Advised to breast feed from that breast as much as possible to expel the milk Advised if she develops nausea, vomiting, fever, chills, any type of discharge from the nipple to RTC [id number] OLI Zapata (Adult Med) [address] [place] [address] 0 08/17/2016 15:55:56 08/17/2016 18:29:48 Obesity 421043824 E66.9 Advised 30 minutes of exercise 5 days/week Advised to not drink her calories Advised 3 balanced meals/day with plenty of fruits and vegetables Gastroesop hageal reflux disease 502762465 K21.9 Advised to stay away from spicy and greasy foodsAdvis ed to stay away from fatty foodsDo not eat within 2 hours of going to bedStay sitting up after mealsNo smoking She is currently eating 10 tortillas/ dayAdvised on 1-2 Vitamin D deficiency 347 96516 E55.9 Spasm of back muscles 20 2485775 M62.830 Discussed and demonstrat ed different stretches she could tryAdvised we will begin muscle relaxersRT C if no improvemen tAdvised that 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, working at a [employer] mat, 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 and cause them to be tight [id number] OLI Zapata (Adult Med) [address] [place] [address]99[address]491 0 11/17/2016 16:23:45 11/17/2016 18:02:20 Headache 54259543 R51 Discussed that at this time since [...] LOC go directly to the ER Obesity 119841366 E66.9 Advised 30 minutes of exercise 5 days/week Advised to not drink her calories Advised 3 balanced meals/day with plenty of fruits and vegetables [id number] Deonte Villarreal HC (OIL ANALYST) [address] [place] [address] 0 06/08/2017 15:02:14 06/09/2017 13:34:16 Increased frequency of urination 917961001 R35.0 Family candelario nning surveillance 646529672 Z30.09 Spasm of back muscles 20 3418786 M62.563 [id number] OLI Zapata (Adult Med) [address] [place] [address]6840-005 0 08/22/2017 10:52:26 08/22/2017 11:34:00 Seasonal allergic rhinitis 779141819 J30.2 Menstrual cramp 18475268 1 N94.6 Will prescribed ibuprofen TID PRN for menstrual back pain - discussed that since her back pain only occurs when she has her cycle, this is the likely causes and she can treat symptomati aurora Vitamin D deficiency 347 22219 E55.9 RTC 4 months for recheck Body mass index 30+ - obesity 596299647 Z68.32 Advised 30 minutes of exercise 5 days/week Advised to not drink her calories Advised 3 balanced meals/day with plenty of fruits and vegetables [id number] OLI Zapata (Adult Med) [address] [place] [address] 0 10/17/2017 14:12:22 10/18/2017 11:34:03 Contraception care 131576248 Z30.40 Patient to begin OCPs at this time. Patient to picker tender and begin today Discussed that without control her fertility is returned immediatel y d/t removal of nexplanon Subcutaneo us contraceptive implant palpable 527722963 Z30.46 Removed today [id number] Deonte Villarreal (OIL ANALYST) [address] [place] [address] 12/20/2018 15:30:40 12/21/2018 12:51:47 Gynecologic examination 10469864 Z01.419 Exposure t o sexually transmissible disorder 901224525 Z20.2 Family candelario nning surveillance 705742806 Z30.09 [id number] [facility] [address] [place] [address] 02/01/2019 14:18:52 02/02/2019 08:41:02 Gastroesophageal reflux disease 898712894 K21.9 Administra tion of influenza vaccine 59663442 Z23 Body mass index 25-29 - overweight 338911599 Z68.28 BMI 28.4Health y weight range 90-120 Depressive disorder 3548 9007 F32.9 mildwill monitor [id number] [facility] [address] [place] [address] 04/10/2019 14:59:36 04/11/2019 10:40:59 Gastroesophageal reflux disease 632798688 K21.9 Body mass index 25-29 - overweight 967096496 Z68.28 BMI 28.4Health y weight range 90-120 Allergic conjunctivitis 661874815 H10.13 [id number] [facility] [address] [place] [address] 05/24/2019 16:32:10 05/25/2019 12:34:26 Gastroesophageal reflux disease 345179969 K21.9 She completed Omeprazole felt fine while taking itPatient started having abdominal bloating and epigastric abd pain after having spicy foods denies nausea/vom iting Body mass index 25-29 - overweight 562433415 Z68.28 BMI 28.4Health y weight range 90-120 Epigastric pain 57765657 R10.13 [id number] Tere Melendez, A [facility] [address] [place] [address] 05/31/2019 17:32:56 06/04/2019 08:59:22 Epigastric pain 06639266 R10.13 [id number] Liliana Ybarra [facility] [address] [place] [address] 07/23/2019 16:14:48 07/24/2019 08:16:51 Gastroesophageal reflux disease 303701286 K21.9 She completed Omeprazole felt fine while taking itPatient started having abdominal bloating and epigastric abd pain after having spicy foods denies nausea/vom iting Epigastric pain 50931734 R10.13 Still has not had EGD xray with gastrointe stinal series with air contrastSh e went to [place] to get testing and was told hospital would be calling [facility] for?? Body mass index 25-29 - overweight 913241715 Z68.28 BMI 28.4Health y weight range 90-066 [id number] [facility] [address], [place] [address] 01/08/2020 12:38:18 01/09/2020 07:14:54 Otitis externa 4544465 H60.93 Itching of ear 824177642 L29.8 [id number] BRITTNEE RIVERA NP [facility] [address], [place] [address] 03/17/2020 14:45:31 03/18/2020 06:21:26 Influenza vaccine needed 4457854266 106 Z23 History of urinary tract infection 6650399779 107 Z87.023 [id number] Deonte Villarreal HC (OIL ANALYST) [address] [place] [address] 04/02/2020 09:02:29 04/09/2020 11:22:39 Family planning surveillance 255853025 Z30.09 [id number] [facility] [address], [place] [address] 06/19/2020 16:06:47 06/23/2020 13:30:54 Gastroesophageal reflux disease 151162953 K21.9 She completed Omeprazole felt fine while taking itPatient started having abdominal bloating and epigastric abd pain after having spicy foods denies nausea/vom iting Epigastric pain 36057337 R10.13 Still has not had EGD xray with gastrointe stinal series with air contrastSh e went to [place] to get testing and was told hospital would be calling [facility] for?? Body mass index 25-29 - overweight 090061865 Z68.28 BMI 28.4Health y weight range 90-120 Abdominal pain 50998474 R10.9 Chronic constipation 236 943239 K59.09 Depression screening 171 287391 Z13.31 negative [id number] Deonte Villarreal HC (OIL ANALYST) [address] [place] [address] 06/26/2020 08:31:10 07/04/2020 07:30:35 Family planning surveillance 221039503 Z30.09 Screening for malignant neoplasm of breast 148296285 Z12.39 [id number] Liliana Ybarra [facility] [address] [place] [address] 07/16/2020 16:36:56 07/17/2020 15:04:35 Abdominal pain 79455426 R10.9 Better fatty liver on abdominal u/s 07/03/2020 Gastroesop hageal reflux disease 286777347 K21.9 She completed Omeprazole felt fine while taking it Patient started having abdominal bloating and epigastric abd pain after having spicy foods denies nausea/vom iting Still has not had EGD xray with gastrointe stinal series with air contrast She went to [place] to get testing and was told hospital would be calling [facility] for?? Body mass index 25-29 - overweight 817221172 Z68.28 BMI 28.4Health y weight range 90-120 Steatosis of liver 1007 K76.0 fatty liver on abdominal u/s 07/03/2020 stressed diet informatio n no tylenol In 2017 lipid panel cholestero l, total 175 triglyceri pato 59 HDL cholestero l 65 VLDL cholestero l sergio 12 LDL cholestero l 98 Past pregn griffin history of gestational diabetes mellitus 713860262 Z86.32 It appears patient has now developed DM2 [id number] Liliana Ybarra [facility] [address] [place] [address] 07/31/2020 15:00:44 08/04/2020 16:08:39 Past history of gestational diabetes mellitus 291142090 Z86.32 Had BS in the ER of [...] 152-199 lbs 6'4= 156-204 lbs}} Follow-up visit 87629790 9 Z09 40 y/o HF here for follow up er visit at [facility] on 07/02/2020 for headaches. At that visit she was found to have hyperglyce walter, UTI and headache which responded to Toradol IM. The patient has a history of Gestationa l DM. Impaired g lucose tolerance 7442759 R73.03 HA1C 5.4 Body mass index 25-29 - overweight 855214670 Z68.28 BMI 29.6 Ht 4' 9.75 Healthy weight range 90-120 Patient has lost 10 pounds since last seen Urinary tr act infectious disease 71919067 N39.0 [id number] [facility] [address] [place] [address] 10/13/2020 11:14:03 10/15/2020 16:05:57 Administration of SARS-CoV-2 antigen vaccine 543705931 Z23 [id number] Liliana Ybarra [facility] [address] [place] [address] 10/29/2020 10:07:38 10/30/2020 14:08:49 Past history of gestational diabetes mellitus 413918705 Z86.32 Had BS in the ER of [...] 6'4= 156-204 lbs}} Impaired g lucose tolerance 9731864 R73.03 HA1C 5.4 Body mass index 25-29 - overweight 699950176 Z68.28 BMI 27.4 Ht 4' 9.75 Healthy weight range 90-120 Patient has lost 10 pounds since last seen [id number] [facility] [address] [place] [address] 11/01/2020 13:26:40 11/04/2020 19:46:54 Administration of SARS-CoV-2 antigen vaccine 221466219 Z23 [id number] Liliana Ybarra [facility] [address] [place] [address] 11/26/2020 16:32:04 11/28/2020 09:40:12 Headache 88960029 R51.9 11/03/2020 CT of BRAIN normal Reduced visual acuity 13 792394 H54.7 vision 20/40 Impaired g lucose tolerance 4614283 R73.03 HA1C 5.3 Vitamin D deficiency 347 89634 E55.9 take otc vitamin D3 1000 IU dailuke Steatosis of liver 92895 1007 K76.0 fatty liver on abdominal u/s 07/03/2020 stressed diet informatio n no tylenol In 2017 lipid panel cholestero l, total 175 triglyceri pato 59 HDL cholestero l 65 VLDL cholestero l sergio 12 LDL cholestero l 98 Hyperlipid emia screening 346427588 Z13.674 [id number] Zachary Haque MD [facility] [address] [place] [address] 01/28/2021 15:49:40 02/06/2021 06:30:27 Impaired glucose tolerance 8094213 R73.03 HA1C 5.3 Headache 97100371 R51.9 11/03/2020 CT of BRAIN normal Reduced visual acuity 13 877370 H54.7 vision 20/40Has referral to see eye doctorPati ent voices has not gone yet Vitamin D deficiency 347 92055 E55.9 take otc vitamin D3 1000 IU daiy Steatosis of liver 40447 1007 K76.0 fatty liver on abdominal u/s 07/03/2020 stressed diet informatio n no tylenol In 2016 lipid panel cholestero l, total 175 triglyceri pato 59 HDL cholestero l 65 VLDL cholestero l sergio 12 LDL cholestero l 98 Hyperlipid emia screening 059777885 Z13.220 Rechecking lipids-pat ient did not return for fasting labs Influenza vaccination declined 798499382 Z28.21 [id number] Moi Wong MA [facility] [address] [place] [address] 01/30/2021 11:28:46 02/04/2021 06:31:21 Vitamin D deficiency 72128085 E55.9 take otc vitamin D3 1000 IU daiy Hyperlipid emia screening 382872656 Z13.127 [id number] Lida Lazo MD [facility] [address] [place] [address] 02/13/2021 14:55:26 02/17/2021 14:38:25 Headache 14002731 R51.9 Presbyopia 63825971 H52. [id number] [facility] [address] [place] [address] 02/26/2021 15:35:27 03/05/2021 07:03:13 Impaired glucose tolerance 3720877 R73.03 HA1C 5.3 Headache 19944704 R51.9 11/03/2020 CT of BRAIN normalhead aches for last 8 months-top of headhad normal vision check early changes but not causing headachesw orsening headaches + nausealayi ng down helps Vitamin D deficiency 347 53592 E55.9 Vitamin D 16. a little better but needs to continue taking Vitamin Dtake otc vitamin D3 1000 IU daiy Steatosis of liver 1007 K76.0 fatty liver on abdominal u/s 07/03/2020 stressed diet informatio n no tylenol In 2017 lipid panel cholestero l, total 175 triglyceri pato 59 HDL cholestero l 65 VLDL cholestero l sergio 12 LDL cholestero l 98 Abdominal pain 56109303 R10.9 mid epigastric patient has GERDfatty liver on abdominal u/s 07/03/2020 Vaginitis 82016809 N76.0 Acute non- suppurative serous otitis media 128610643 H65.03 L>R Administra tion of influenza vaccine 59689831 Z23 [id number] Liliana Ybarra [facility] [address] [place] [address] 06/26/2021 15:41:11 06/29/2021 06:59:40 Abdominal pain 88609791 R10.9 mid epigastric patient has GERDfatty liver on abdominal u/s 07/03/2020 Headache 01451892 R51.9 11/03/2020 CT of BRAIN normalhead aches [...] LAYING DOWN HELPS Impaired g lucose tolerance 9193865 R73.03 HA1C 5.3 Vitamin D deficiency 347 69755 E55.9 Vitamin D 16. a little better [...] in your coffee. Chronic ma xillary sinusitis 70529732 J32.0 mri brain WO CONTRAST ON 03/05/2021 SHOWS CHRONIC SINUSITIS Depression screening 171 071811 Z13.31 negative Body mass index 25-29 - overweight 331880172 Z68.28 BMI 29 Ht 4' 9.75 Healthy weight range 90-120 Patient has lost 10 pounds since last seen [id number] [facility] [address] [place] [address] 08/12/2021 11:57:22 08/13/2021 13:22:10 Initiation of depot contraception done 9916917126 21307 Z30.013 41 y/o HF [id number] presents for initiation of -cont rol. SHe has used in the past depo provera injection and Nexplanon. Had a pap on 12/20/2018 normal and mammogram 06/26/2020. She wants to start depo provera injection. Has no contraindi cations. Body mass index 25-29 - overweight 345739015 Z68.28 BMI 29 Ht 4' 9.75 Healthy weight range 90-120 Patient has lost 10 pounds since last seen Screening for malignant neoplasm of breast 958747762 Z12.39 [id number] Liliana Ybarra, [facility] [address] [place] [address] 11/30/2021 15:22:51 12/01/2021 11:50:38 Gastroesophageal reflux disease 750131731 K21.9 She completed Omeprazole felt fine while taking it Patient started having abdominal bloating and epigastric abd pain after having spicy foods denies nausea/vom iting Still has not had EGD xray with gastrointe stinal series with air contrast She went to [place] to get testing and was told hospital would be calling [facility] for?? Headache 25787903 R51.9 11/03/2020 CT of BRAIN normalhead aches [...] HEADACHES WORSENING HEADACHES + NAUSEA LAYING DOWN AGNIESZKAlaura has now seen neurologis pa who has prescribed tylenol with codeine. However the patient was unable to get for unknown reason. She has been advised to go pick it up and try Rx. Abdominal pain 03467400 R10.9 mid epigastric patient has GERDfatty liver on abdominal u/s 07/03/2020 Vitamin D deficiency 347 87982 E55.9 Vitamin D 16. a little better [...] cream in your coffee. Depression screening 171 726129 Z13.31 negative Chronic wy xillary sinusitis 00760588 J32.0 mri brain WO CONTRAST ON 03/05/2021 SHOWS CHRONIC SINUSITIS Body mass index 30+ - obesity 511706950 Z68.30 BMI 30 [id number] [facility] [address], [place] [address] 12/04/2021 16:16:54 12/07/2021 12:45:57 Screening for malignant neoplasm of breast 565988010 Z12.39 IBCCP CBELAST PAP Cytology normal negative HPV in 12/20/2018L AST MAMMO 09/04/2020 BIRADS 2 Body mass index 30+ - obesity 153172630 Z68.30 BMI 30Ht 4' 9.75 Healthy weight range 90-871 [id number] [facility] [address] [address] 01/08/2022 16:12:47 01/10/2022 15:30:36 Vitamin D deficiency 86832292 E55.9 Vitamin D 16. a little better but needs to continue taking Vitamin Dtake otc vitamin D3 1000 IU daiy [id number] [facility] [address], [place] [address] 03/02/2022 16:23:29 03/03/2022 13:19:59 Gastroesophageal reflux disease 128181008 K21.9 She completed Omeprazole felt fine while [...] in your coffee. Vitamin D deficiency 347 11742 E55.9 Vitamin D 24.2 .better but needs to continue taking Vitamin Dtake otc vitamin D3 1000 IU daily Chronic ma xillary sinusitis 78639016 J32.0 mri brain WO CONTRAST ON 03/05/2021 SHOWS CHRONIC SINUSITIS Depression screening 171 684204 Z13.31 PHQ2-9 negative Body mass index 30+ - obesity 726784980 Z68.30 BMI 30.4 Mental hea [facility] screening 713157793 Z13.39 GEMMA-7 negative Administra tion of influenza vaccine 67316629 Z23 [id number] Liliana Ybarra [facility] [address], [place] [address] 06/02/2022 15:43:21 06/04/2022 14:39:01 Body mass index 25-29 - overweight 474462771 Z68.28 BMI 29.7 Ht 4' 9.75 Healthy weight range 90-120 Chronic ma xillary sinusitis 27544808 J32.0 mri brain WO CONTRAST ON 03/05/2021 SHOWS CHRONIC SINUSITIS Overweight 955905374 E66 .3 BMI 29.7 Ht 4' 9.75 Healthy weight range 90-120 Gastroesop hageal reflux disease 105896650 K21.9 She completed Omeprazole felt fine while [...] in your coffee. Vitamin D deficiency 347 60261 E55.9 Vitamin D 24.2 .better but needs to continue taking Vitamin Dtake otc vitamin D3 1000 IU daily Depression screening 171 244799 Z13.31 PHQ2-9 negative Mental hea [facility] screening 652062917 Z13.39 GEMMA-7 negative Impaired g lucose tolerance 6118748 R73.03 02/26/2021 HA1C 5.8 Watch your weight. [...] make prediabete s worse. Mixed hyperlipidemia 267 099206 E78.2 01/30/2021 CHO 183TRIG 76hdl 66ldl 103 [...] in your coffee. Chronic he adache disorder 188955092 G44.89 Has seen neurologis t 07/15/2021; 10/07/[address] of brainHas tried rx -still gets headachesc all neurologis ts office to make f/u appt History of calculus of kidney 596810101 Z87.442 seen in the [facility] ssed kidney stonefeels fineneeds to drink more water [id number] GUALBERTO [facility] [address] [place] [address] 09/29/2022 16:02:09 10/01/2022 14:58:11 Body mass index 30+ - obesity 934396135 Z68.30 BMI 30.1Ht 4' 9.75 Healthy weight range 90-120 Obesity 190435293 E66.9 BMI 30.1Ht 4' 9.75 Healthy weight range 90-120 Vitamin D deficiency 347 04870 E55.9 Vitamin D 24.2 .better but needs to continue taking Vitamin Dtake otc vitamin D3 1000 IU daily Mixed hyperlipidemia 267 257678 E78.2 01/30/2021 CHO 183TRIG 76hdl 66ldl 103 [...] in your coffee. Chronic ma xillary sinusitis 76384269 J32.0 mri brain WO CONTRAST ON 03/05/2021 SHOWS CHRONIC SINUSITIS Steatosis of liver 31948 1007 K76.0 fatty liver on abdominal u/s [...] in your coffee. Impaired g lucose tolerance 9325192 R73.03 02/26/2021 HA1C 5.8 Watch your weight. [...] make prediabete s worse. Depression screening 171 509287 Z13.31 PHQ2-9 negative Mental hea lt screening 780851594 Z13.39 GEMMA-7 negative Chronic he adache disorder 801736274 G44.89 Has seen neurologis t 07/15/2021; 10/07/[address] of brainHas tried rx -still gets headachesc all neurologis ts office to make f/u appt History of calculus of kidney 862637674 Z87.442 seen in the [facility] ssed kidney stonefeels fineneeds to drink more water Gastroesop hageal reflux disease 667734861 K21.9 She completed Omeprazole felt fine while taking it Patient started having abdominal bloating and epigastric abd pain after having spicy foods denies nausea/vom itingHas refills at home Increased frequency of urination 478354362 R35.0 [id number] Liliana Ybarra [facility] [address] [place] [address] 11/09/2022 16:43:36 11/10/2022 15:54:09 Mastodynia of bilateral breasts 2468876038 8577641 N64.4 Body mass index 30+ - obesity 931712878 Z68.30 BMI 30.1Ht 4' 9.75 Healthy weight range 90-120 Depression screening 171 170912 Z13.31 PHQ2-9 negative Mental hea lt screening 183465894 Z13.39 GEMMA-7 negative [id number] [facility] [address] [place] [address] 12/30/2022 15:41:09 01/04/2023 14:52:13 Body mass index 25-29 - overweight 338062908 Z68.28 BMI 29.7 Ht 4' 9.75 Healthy weight range 90-120 Urine preg palmer test positive 766147219 Z32.01 12/24/2022 BHCG quant = 919517112/30 UA HCG +;12/31/19 BHCG quant = 64953 Depression screening 171 837032 Z13.31 PHQ2-9 negative Mental hea lth screening 159182519 Z13.39 GEMMA-7 negative Miscarriage 15933446 O03 .9 12/24/2022 BHCG quant = 3863400 UA HCG +;12/31/19 BHCG quant = 74769 [id number] Luis Miguel Mueller MD [facility] [address] [place] [address] 01/27/2023 16:12:06 01/28/2023 12:51:05 Follow-up visit 434371972 Z09 40 y/o HF here for follow up er visit for D&C following missed abortionla . Miscarriage 66220112 O03 .9 12/24/2022 BHCG quant = 778688512/30 UA HCG +;12/31/19 BHCG quant = 4324447 BHCG quant 2694 from ER records Body mass index 25-29 - overweight 475165810 Z68.28 BMI 29.6 Ht 4' 9.75 Healthy weight range 90-120 Depression screening 171 985495 Z13.31 PHQ2-9 negative Mental hea lth screening 131780302 Z13.39 GEMMA-7 negative Initial pr escription of oral contraception 919833395 Z30.420 [id number] [facility] [address] [place] [address] 03/21/2023 16:46:39 03/23/2023 12:24:13 Headache 50873102 R51.9 11/03/2020 CT of BRAIN normalhead aches [...] CT of HEAD WO CONTRAST NORMAL at [facility] Naprosyn 500mg bid for prn headaches- pt voices did not get at pharmacy Follow-up visit 53436401 9 Z09 42 y/o HF here for [...] tylenol for headaches. Chronic he adache disorder 655407247 G44.89 Has seen neurologis t 07/15/2021; 10/07/[address] of brainHas tried rx -still gets headachesc all neurologis ts office to make f/u appt Stress and adjustment reaction 907057267 F43.9 PHQ 2-9 + GAD-7 + .psyc hotherapis t appointmen t and/or psychiatri st Body mass index 30+ - obesity 560377310 Z68.30 BMI 30.4Ht 4' 9.75 Healthy weight range 90-120 Depression screening 171 175872 Z13.31 PHQ2-9 ++psychiat rist/psych otherapist listpatien t to seek/make his own appointmen t MELISSA Mental hea lt screening 266788285 Z13.39 GEMMA-7 ++psychiat rist/psych otherapist listpatien t to seek/make his own appointmen t MELISSA Administra tion of influenza vaccine 18370604 Z23 [id number] [facility] [address] [address] 4 05/18/2023 15:49:36 05/25/2023 14:13:28 Obesity 016896963 E66.9 BMI 30.9Ht 4' 9.75 Healthy weight range 90-120 Abnormal vaginal odor 62 581045 N89.8 since having miscarriag e and D&C Mitbillz 97966792 N 94.0 may use ibuprofen or naprosyn as necessary Bacterial vaginosis 4197 66671 N76.0 NUSWAB + B Vag [id number] [facility] [address] [address] 05/20/2023 15:01:48 05/26/2023 14:06:20 Abnormal vaginal odor 35227881 N89.8 since having miscarriag e and D&C [id number] [facility] [address] [place] [address] 4 06/21/2023 15:28:31 06/22/2023 14:22:56 Mixed hyperlipidemia 868661515 E78.2 01/30/2021 CHO 183TRIG 76hdl 66ldl 103 03/02/2022 cho 215.6trig 143HDL 56.7LDL 133.5Avoid all breads, potatoes, cereal, pasta, rice, margarine, refined sugars, milk yogurt, ice cream, juices, soda (including diet), beer, and manmade or manufactur ed desserts. Enjoy steak, fish, chicken (no skin), pork, butter, vegetables , beans, nuts, whole eggs, cheese (low fat or skim), cream in your coffee. Obesity 030778963 E66.9 BMI 31.2Ht 4' 9.75 Healthy weight range 90-120 Body mass index 30+ - obesity 560170508 Z68.30 BMI 31.2Ht 4' 9.75 Healthy weight range 90-120 Vitamin D deficiency 347 50107 E55.9 Vitamin D 21.1.donell r but needs to continue taking Vitamin Dtake otc vitamin D3 1000 IU daily Chronic ma xillary sinusitis 84515433 J32.0 mri brain WO CONTRAST ON 03/05/2021 SHOWS CHRONIC SINUSITIS Steatosis of liver 53185 1007 K76.0 fatty liver on abdominal u/s [...] in your coffee. Impaired g lucose tolerance 0909052 R73.03 02/26/2021 HA1C 5.802// 024 HA1C 5.7 [...] prediabete s worse. Chronic he adache disorder 000642580 G44.89 Has seen neurologis t 07/15/2021; 10/07/[address] of brainHas tried rx -still gets headachesc all neurologis ts office to make f/u appt History of calculus of kidney 288956823 Z87.442 seen in the [facility] ssed kidney stonefeels fineneeds to drink more water Depression screening 171 883054 Z13.31 PHQ2-9 negative Mental [facility] screening 166284931 Z13.39 GEMMA-7 negative Gastroesop hageal reflux disease 651322376 K21.9 She completed Omeprazole felt fine while taking it Patient started having abdominal bloating and epigastric abd pain after having spicy foods denies nausea/vom itingHas refills at home [id number] GUALBERTO [facility] [address] [place] [address] 09/29/2023 15:41:48 09/30/2023 12:58:31 Follow-up visit [id number] Z09 43 y/o HF here for follow up er visit for lower abdominal pain on 09/06/2023 at [facility]. The patient presented with lower abd pain [...] low back. Acute urin aleshia tract infection 095672213 N39.0 UA dip shows small leuks and trace of blood Abdominal pain 56969449 R10.9 lower abdominal pain with dysuriaCT abd/pelvis w/contrast unremarkab le Obesity 292926513 E66.9 BMI 30Ht 4' 9.75 Healthy weight range 90-120 Thoracic spondylosis 387 415439 M47.814 05/12/2022 CT abd/pelvis with contrast shows mild thoracic spondylosi s [id number] YANG NAILS PA-C [facility] [address] [place] [address] 11/17/2023 14:53:14 11/22/2023 18:44:06 Chronic maxillary sinusitis 06952553 J32.0 C/W Loratadine 10mg dailyC/W fluticason e nasal spray Obesity 249152926 E66.8 BMI 30.4 Advised decreased portion sizes, good food choices, limited eating out or fast food and eliminate soda and juice from diet. Advised physical activity daily and offered encouragem ent to continue with positive changes made so far. Dysuria 37819771 R30.0 Trace blood on UA todayWill treat empiricall y with Macrobid 100mg BID x 10 daysUrine Cx sent out Low back pain 715492721 M54.50 Start meloxicam 15mg daily for back painDo not take other NSAIDs such as Ibuprofen, Naproxen while on this medication Gastroesop hageal reflux disease 519511074 K21.9 Resolved- pt states does not take meds and does not get acid reflux anymore [id number] Liliana Ybarra, [facility] [address], [place] [address] 12/19/2023 16:27:44 12/20/2023 14:20:09 Low back pain 186265561 M54.50 Start meloxicam 15mg daily for back painDo not take other NSAIDs such as Ibuprofen, Naproxen while on this medication Obesity 440065454 E66.8 BMI 30.4 Advised decreased portion sizes, good food choices, limited eating out or fast food and eliminate soda and juice from diet. Advised physical activity daily and offered encouragem ent to continue with positive changes made so far. 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 Pap and HPV testing done; Last pap smear: 12/20/2018 NILM HRHPV Neg2. Pt is not using control.3. Educated on STI reduction and prevention . Encouraged condom use.4. 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 439313790 M47.9 11/21/2023 CT lumbar spine w/o contrast disc bulges L2-L3 through L4-L5 disc protrusion at L5-S1, moderate facet osteoarthr itis, sacroiliac OA, lumbar spondylosi s Low back pain 512515110 M54.50 Start meloxicam 15mg daily for back painDo not take other NSAIDs such as Ibuprofen, Naproxen while on this medication Thoracic spondylosis 387 167971 M47.814 05/12/2022 CT abd/pelvis with contrast shows mild thoracic spondylosi s0 CT Abd/pelvis w contrast normal11/20 CT lumbar spine w/o contrast disc bulges L2-L3 through L4-L5 disc protrusion at L5-S1, moderate facet osteoarthr itis, sacroiliac OA, lumbar spondylosi s Obesity 311265944 E66.9 BMI 30.4 Advised decreased portion sizes, good food choices, limited eating out or fast food and eliminate soda and juice from diet. Advised physical activity daily and offered encouragem ent to continue with positive changes made so far. Acute sinusitis 42556573 J01.90 Administra tion of influenza vaccine 45412214 Z23 [id number] JANNA CRYSTAL NP [address] [address] 07/10/2024 15:51:51 07/10/2024 16:46:16 Obesity 598312637 E66.9 Left lower quadrant pain 931410139 R10.32 Health Concerns Section Related Observation LastModified by Organization Detai ls LastModified Time None Recorded Concern Status LastModified by Organization Details LastModified Time None Recorded Advance Directives Directive N: Payers Encounter Date Sequence Insurance Name Policy Number Policy Merida Covered Member ID Merida Member ID Guarantor Name 11/17/2023 2 *SELF PAY* Nory Vega 11/17/2023 1 [facility] ON OR AFTER 10/23/20 (MEDICAID REPLACEMENT - HMO) Carole Vega [id number] Carole Vega 12/19/2023 1 [facility] ON OR AFTER 10/23/20 (MEDICAID REPLACEMENT - HMO) Carole Otoole Gary [id number] Carole Cuetojas Gary 02/03/2024 2 *SELF PAY* Nory Cuetojas Gary 02/03/2024 1 [facility] ON OR AFTER 10/23/20 (MEDICAID REPLACEMENT - HMO) Carole Xiang Vega [id number] Carole Vega 03/20/2024 2 *SELF PAY* Nory gallo Otoole Gary 03/20/2024 1 [facility] ON OR AFTER 10/23/20 (MEDICAID REPLACEMENT - HMO) Carole Xiang Vega [id number] Carole Otoole Gary 07/10/2024 2 *SELF PAY* Nory gallo Otoole Gary 07/10/2024 1 [facility] ON OR AFTER 10/23/20 (MEDICAID REPLACEMENT - HMO) Carole Vega [id number] Carole Xiang Vega Notes Date Note Type Note Provider Name and Address Organization Details Recorded Time 11/17/2023 text/html 43 y/o F here for [...] N/V/D. YANG NAILS PA-C Attn: Accounting[address] [place], [address], [facility] - SIF 11/17/2023 15:25:37 12/19/2023 text/html 43 [...] 05/2023 which were normal. INESSA Mehta Attn: Accounting, [address] [facility], [place], [address], [facility] - SIF 12/19/2023 17:45:43 02/03/2024 text/html Carole Jensen o a 43 yo presenting for pap smear. [place] at bedside for translation.Report s regular menstrual cycles every 28-30 days with light flow lasting 4 days changing pads/tampons every 12 hours on heaviest day. 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 OSCAR CHAND NP Attn: Accounting, [address] [facility], [place], [address], [facility] - SIF 02/03/2024 17:30:37 03/20/2024 text/html 43 [...] get influenza vaccine. SHe has no contraindication. INESSA Mehta Attn: Accounting, [address] [facility], [place], [address], [facility] - SIF 03/20/2024 16:28:07 07/10/2024 text/html Carole is here tod ay for pain in the left side of her abdomen and pain under her belly button for quite some time that has increased yesterday and today. She reports pain is 10/10 in lower abdomen below belly button on both sides.She contacted her PCP office on 06/14/2024 with concerns for severe abdominal pain and was advised to go to ER. She reports she has not gone to the ER for this concern or had any testing.She denies any other concerns today. No fevers. No cough, congestion, or sore throat. Denies back pain or other pain today.Visit today completed with press assistant and feeder #[id number] Yu. JANNA CRYSTAL NP Attn: Accounting[address] [facility], [place], [address], [facility] - SIF 07/10/2024 16:46:13 OBGyn Episode Ob Episode Information Episode Created Date Number of Fetuses Patient Bloodtype Patient rh Status Prepregnancy Weight lbs Domestic Partner Domestic Partner Phone Father Name Dry Yard Worker Status 06/17/19 15 1 129 CLOSED Fetus Data First Name Last Name Admitted to NICU Weight (g) Sex Living Outcome Pediatric Complications Fetus ID Race Codes Race Delivery Type 14950 Problems Problem Notes Problem Name Start Date End Date Resolution Snomed Code Not e Glucose tolerance test outsi de reference range 622594124 Gastroesophageal reflux disease 269275057 Vitamin D deficiency 55774058 Term delivered [address] 007 state 57278126 Cholo Calculation Initial Cholo Date Initial Exam [...] Days Gestation 0 [email or web address] 06/17/2014 015 0 Pre- Flowsheet Flowsheet Date 06/17/2014 Bernard Score Blood Edema Fundus Height Fundus Units Glucose Ketones Leukocytes Nitrite Labor Signs Protein Cervic Dilation Cervic Effacement Cervic Station neg none 30 wks none negative none neg Type Weight in lbs Pre/Post Dialysis Refused 139.608977354596 BP Diastolic BP Location Tested BP Systolic BP Type 62 R arm 114 sitting Fetus Heart Rate Present A 145 Fetus Movement A Yes Comments Flowsheet Date 07/02/2014 Bernard Score Blood Edema Fundus Height Fundus Units Glucose Ketones Leukocytes Nitrite Labor Signs Protein Cervic Dilation Cervic Effacement Cervic Station 30 cm none Type Weight in lbs Pre/Post Dialysis Refused 143.823629760136 BP Diastolic BP Location Tested BP Systolic BP Type 68 L arm 100 sitting Fetus Heart Rate Present A 145 Present Fetus Movement A Yes Comments having a girl, will have margaux ural , breastfeed, [facility] order detailer - Alexander, control - MEJIA .35 mg start 3 weeks after delivery, stress to patient no intercourse Flowsheet Date 07/22/2014 Bernard Score Blood Edema Fundus Height Fundus Units Glucose Ketones Leukocytes Nitrite Labor Signs Protein Cervic Dilation Cervic Effacement Cervic Station neg none 40 cm none negative none neg Type Weight in lbs Pre/Post Dialysis Refused 149.647794657483 BP Diastolic BP Location Tested BP Systolic BP Type 62 R arm 114 sitting Fetus Heart Rate Present A 156 Present Fetus Movement A Yes Comments GIRL Flowsheet Date 09/09/2014 Bernard Score Blood Edema Fundus Height Fundus Units Glucose Ketones Leukocytes Nitrite Labor Signs Protein Cervic Dilation Cervic Effacement Cervic Station Type Weight in lbs Pre/Post Dialysis Refused 134.940069364726 BP Diastolic BP Location Tested BP Systolic [...] Domestic Partner Domestic Partner Phone Father Name Dry Yard Worker Status 09/10/19 15 1 CLOSED Fetus Data First Name Last Name Admitted to NICU Weight (g) Sex Living Outcome Pediatric Complications Fetus ID Race Codes Race Delivery Type 2948.34 8 M Full Term Vaginal Cholo Calculation Initial Cholo Date Initial [...] Domestic Partner Domestic Partner Phone Father Name Dry Yard Worker Status 09/10/19 15 1 CLOSED Fetus Data [...]
--- OUTSIDE RECORDS SUMMARY | 2024-07-10 17:59 | XMS_ITS | Continuity of Care Document ---
Author Organization [place], [facility] Address [address] [place] [address] Care Team Providers Care Electronic Parts Salesperson Name Role Phone LILIANA YBARRA Primary Care Provider Assessment Encounter Date Assessment Date Assessment LastModified by Organization Details LastModified Time 07/10/2024 07/10/2024 Visit today completed with child psychiatrist #[id number] Yu. Not available 07/10/2024 16:28:36 Plan of Treatment Reminders Order Date Submit Date Provider Last Modified By Organization Details Last Modified Time Details Appointments ANY 15 025 02:45PM JANNA CRYSTAL NP Not available Not available Not available Lab None record ed. Referral None record ed. Procedures None record ed. Surgeries None record ed. Imaging None record ed. Medication Orders None record ed. Patient TargetsNo targets recorded. Patient Instructions Encounter Date Encounter Id Patient Instructions Last Modified By Organization Details Last Modified Time 07/10/2024 [id number] A healthy lifestyle: care instructions Not available 07/10/2024 16:46:09 Sent patient immediately to ER for 10/10 abdominal pain with RLQ and LLQ tenderness on exam. She states she understands the importance of proceeding to the ER and that she will go directly to [place] [facility] via personal vehicle for further evaluation and treatment. Report called to Dr. Barron at [place] [facility]. Not available 07/10/2024 16:45:53 Reason for Referral None Reported. Results Created Date Observation Date Name Description Value Unit Range Abnormal Flag Note LastModifiedBy Organization Detail LastModifiedTime 06/26/1906/21/2024 MAMMO , scree nigel, bilat eral No observ ation record ed. [email or web address] [facility] [address] [place], [address], 06/27/2024 16:13:51 06/30/19 25 06/29/2024 XR, hip + pelvi s, unila teral , 2 or 3 view No observ ation record ed. [address], [place], [address], 07/02/2024 12:12:13 06/30/19 25 06/29/2024 XR, sacru m + coccy x No observ ation record ed. [place] [id number] [facility] [address], [place], [address], 07/02/2024 12:13:43 Result Notes None recorded. Problems Name Problem SNOMED Code Status Onset Date Resolution Date Notes Provider Name and Address Organization Details Recorded Time Body mass index 30+ - obesity 176195119 Completed 201710/29/2020 INESSA Mehta Attn: Navin johnathon,[address] [facility], [place], [address], [place] - [facility] 3 17:13:59 Menstrua l cramp 598347809 Completed 201702/01/2019 Jackeline Causey RN null, [place] [facility] 9 14:28:07 Candidia sis 24365843 Completed 02/01/2019 Jackeline [place] [facility] 9 14:28:15 Impaired glucose toleranc e 9935674 Active 2020 Jackeline [place] [facility] 3 12:45:12 Steatosi s of liver 555598119 Active 2020 Jackeline [place] [facility] 3 12:45:12 Vitamin D deficien cy 62619317 Completed 02/01/2019 INESSA Mehta Attn: Navin g,[address] [place], [address], [place] [facility] 2 16:40:46 Vitamin D deficien cy 56157377 Active 2020 Jackeline Cause[place] [facility] 3 12:45:12 Chronic maxillar y sinusiti s 86523183 Active 2021 Jackeline [place] [facility] 3 12:45:12 Glucose toleranc e test outside referenc e range 848128687 Completed 02/01/2019 Jackeline [place] [facility] 9 14:27:59 Glucose toleranc e test outside referenc e range 797829972 Completed Deonte Bey [place], [place] [facility] 5 17:31:01 Body mass index 30+ - obesity 145388783 Active 2022 Liliana Ybarra [facility] Attn: Accountin g,[address] [facility], [place], [address], [place] [facility] 3 17:13:59 Mixed hyperlip idemia 468109943 Active 2022 Liliana Ybarra [facility] Attn: Accountin g,[address] [facility], [place], [address], [place] [facility] 3 17:13:59 Chronic headache disorder 007198576 Active 2022 Liliana Ybarra [facility] Attn: Accountin g,[address] [facility], [place], [address], [place] [facility] 3 17:13:59 History of calculus of kidney 353782094 Active 2022 Liliana Ybarra [facility] Attn: Accountin g,[address] [facility] [facility], [place], [address], [place] [facility] 3 17:13:59 Obesity 072801104 Active 2022 Liliana Ybarra [facility] Attn: Accountin g,[address] [facility] [facility], [place], [address], [place] [facility] 3 17:13:59 Mastodyn ia of bilatera l breasts 44387922332 135064 Active 2022 Liliana Ybarra [facility] Attn: Navin diego,[address] [facility], [place], [address], [place] [facility] 3 17:13:58 Gastroes ophageal reflux disease 227224740 Active Jackeline Cause[place] RN [place] [facility] 3 12:45:12 Gastroes ophageal reflux disease 024214919 Completed Deonte [place] [facility] 5 17:31:01 Vitamin D deficien cy 02545811 Completed Deonte [place] [facility] 5 17:31:01 Bacteria l vaginosi s 580224042 Completed 202309/29/2023 Removal Reason: resolved Liliana Ybarra [facility] Attn: Navin diego,[address] [facility], [place], [address], [place] [facility] 4 16:11:19 Thoracic spondylo sis 227252065 Active 2023 Liliana Ybarra [facility] Attn: Navin diego,[address] [place], [address], [place] [facility] 4 17:00:42 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 890472681 Active 2023 Jackeline [place] [facility] 4 15:51:09 Term pregnanc y delivere d 17577609 Completed 02/01/2019 Jackeline [place] [facility] 9 14:27:46 Term pregnanc y delivere d 21878156 Completed Deonte [place] [facility] 5 17:31:01 Postpart [facility] 81252169 Completed 02/01/2019 Jackeline [place] [facility] 9 14:28:18 Postpart [facility] 51181866 Completed Deonte [place] [facility] 5 17:31:01 Acute urinary tract infectio n 823649866 Completed 02/01/2019 Jackeline Causey RN null, [facility] 9 14:28:11 Obstruct ion of milk duct 717838673 Completed 02/01/2019 Jackeline Causey RN null, [facility] 9 14:27:50 Obesity 844214468 Completed 201608/22/2017 Liliana Ybarra [facility]- Attn: Navin diego,[address] [facility], [place], [address], [facility] 3 17:13:59 Spasm of back muscles 735435928 Completed 201602/01/2019 Jackeline Causey RN null, [facility] 9 14:27:41 Headache 10683207 Completed 201602/01/2019 Jackeline Causey RN null, [facility] 4 15:50:47 Problem Notes None recorded. Procedures Surgical History Date Name Laterality Status Provider Name and Address Organization Details Recorded Time 02/03/20 24 Date of Last Pap Smear completed OSCAR CHAND NP Attn: Accounting,[address] [facility], [place], [address], [facility] 02/03/2024 17:28:55 03/21/20 23 Date of Last Mammogram completed Jackeline Causey RN [facility] 03/20/2024 15:38:49 01/14/20 23 Dilation and Curettage completed Jackeline Causey RN [facility] 01/14/2023 13:00:05 10/18/19 18 Control Implant Removal completed Sujata Dillard PA-C Attn: Accounting,[address] [facility], [place], [address], [facility] 10/17/2017 14:44:00 09/10/19 15 Control Implant Insertion completed Deonte Bey [facility] 09/09/2014 17:35:00 04/25/19 03 Cholecystectomy completed Sarita Potts MA [facility] 09/09/2014 15:54:11 Imaging Results None recorded. Procedure Notes None recorded. Medical Equipment None [...] active Not Available Not Available Not Avai labliliane ranitidine 150 mg tablet Take 1 tablet [...] Available No t Available norethindro ne (contracept airam) 0.35 mg tablet Take 1 tablet every day by oral route. 2014 active Not Available Not Available Not Avai lable fluticasone propionate 50 mcg/actuati on nasal spray,suspe nsion [place] 1 spray every day by intranasa l [...] completed Not Available Not Available Not Available Antelope Oil 1,000 mg capsule Take 1 capsule [...] Not Available Not Available Not Avai lable Nexplanon 68 mg subdermal implant Inject 1 [...] Not Available Not Available Not Avai lable Xulane 150 mcg-35 mcg/24 hr transdermal patch [...] Updated DateTime 5 146.69 cm 31.4 kg/m2 28268.2 6 g 98 % 98 % 86 /min 16 /min 98.1 [degF] 128 mm[Hg] 75 mm[Hg] Sydni Parham MA [facility] 5 15:57:51 Social History Question Answer Notes LastModified by Organizat ion Details LastModified Time Tobacco Smoking Status Never Smoker Leidy No MA [facility] 04/08/2014 17:08:12 Do You Have An Advance [...] Anxious, Or Unable To Sleep At Night)? CD9455-7 Information not available 11/30/2021 Do You Use [...] N Thyroid Disease N Colon Cancer N Glaucoma N Lung Disease N Developmental or Behavioral Disorders N Bipolar N Pacemaker N Diverticulitis/Diverticulosis N Anesthesia Complications N Orthopedic Problems N Orthotics N Head Injury/Concussion N Congenital Anomalies N Hillman Bite N Chronic Kidney Disease N Endometriosis N Liver Disease N Dialysis N Schizophrenia N Speech Delay N Chronic Obstructive Pulmonary Disease N Parkinson's Disease N Thyroid Problems N Developmental Delay N GI Problems Y Anemia N Immune System Disorder N Multiple Sclerosis N Colon Polyps N Heart Attack (CT) N Diabetes N Cardiomyopathy N Blood Transfusions [...] Recorded Time Tdap 5 completed Not Available [facility] 03/01/2023 09:39:59 Influenza, split virus, quadrivalent, PF 9 completed Not Available [facility] 05/12/2019 02:38:14 Influenza, split virus, quadrivalent, PF 0 completed ADWOA [facility], [place] - [place] 03/17/2020 16:46:13 COVID-19, mRNA, LNP-S, PF, 30 [...] SNOMED-CT Code Diagnosis ICD10 Code Diagnosis Note [id number] JANNA CRYSTAL NP S[facility] [address] [place] [address] 07/10/2024 15:51:51 07/10/2024 16:46:16 Obesity 558242667 E66.9 Left lower quadrant pain 298778335 R10.32 Health Concerns Section Related Observation LastModified by Organization Detai ls LastModified Time None Recorded Concern Status LastModified by Organization Details LastModified Time None Recorded Payers Encounter Date Sequence Insurance Name Policy Number Policy Merida Covered Member ID Merida Member ID Guarantor Name 07/10/2024 2 *SELF PAY* Nory Vega 07/10/2024 1 [facility] ON OR AFTER 10/23/20 (MEDICAID REPLACEMENT - HMO) Carole Vega [id number] Carole Vega Notes Date Note Type Note Provider Name and Address Organization Details Recorded Time 07/10/2024 text/html Carole is here tod ay [...] or other pain today.Visit today completed with child psychiatrist #[id number] Yu. JANNA CRYSTAL NP Attn: Accounting[address] [place], [address], [place] [facility] 07/10/2024 16:46:13 OBGyn Episode No OBEpisode recorded.
[2024-07-10 19:38] VITALS: BP 134/82; PULSE 80; RESP 15; TEMP 36.3; O2SAT 100
[2024-07-10 19:45] LABS: Pregnancy On Board Control Positive; Urine Pregnancy Test Negative
[2024-07-10] MEDS: AMOXICILLIN/CLAVULANATE K 875-125 MG TAB 1 TABLET PO (21:12)
== END 2024-07-10 21:18 | disposition home or self-care (01) ==
PROVIDERS: Emergency Medicine; Physician Assistant; Emergency Provider Emergency Medicine; PCP Registered Nurse
DX: K57.32 Diverticulitis of large intestine without perforation or abscess without bleeding (principal)
CPT/HCPCS: 36415; 74177; 80053; 81003; 81025; 83690; 85025; 99284; A9270; Q9967

== ENCOUNTER 2024-07-20 15:53 | Emergency (ER) | payer OTHER, SELFPAY ==
--- NOTE | ~2024-07-20 | CT_ITS ---
CT abdomen pelvis w con Ordering provider: Bhavani Bass APRN History: 44 years Female with . abdominal pain, recent diverticulitis . Comparison: July 10, 2024 Technique: CT abdomen and pelvis with IV and without oral contrast. Automated exposure control and it erative reconstruction technique were employed. The dose-length product was 319.71 mGy-cm. 100 MLO Om nipaque 350 was given IV. Findings: VISUALIZED LOWER CHEST bilateral groundglass appearance in the lung bases which may indicate atelecta sis versus pneumonia. Clinical correlation advised. UPPER ABDOMINAL ORGANS: Liver: Normal. Gallbladder: Normal. Status post cholecystectomy. Slightly prominent CBD measuring 1.1 cm. Stomach/du odenum: Normal. Pancreas: Normal. Adrenals: Normal. Kidneys: Normal. PELVIC ORGANS: The bladder is normal. BOWEL AND MESENTERY: Colon: No definite diverticulitis. Colon is loaded with fecal material. Normal appendix. Small Bowel: Normal. No obstruction. Peritoneum/mesentery: No free air or free fluid. No mesenteric lymphadenopathy. RETROPERITONEUM: Normal aorta. No retroperitoneal lymphadenopathy. MUSCULOSKELETAL: Superficial soft tissues: The superficial soft tissues are normal. Bones: Normal spine. IMPRESSION: 1. Bilateral lung groundglass appearance suggestive of atelectasis versus pneumonia. Clinical correl ation advised. 2. No definite evidence of diverticulitis. 3. Constipation. Reviewed, dictated and finalized at location A. IMPRESSION: 1. Bilateral lung groundglass appearance suggestive of atelectasis versus pneu monia. Clinical correlation advised. 2. No definite evidence of diverticulitis. 3. Constipation.
[2024-07-20 15:55] VITALS: BP 107/77; PULSE 90; RESP 20; TEMP 36.5; O2SAT 97
--- OUTSIDE RECORDS SUMMARY | 2024-07-20 15:56 | XMS_ITS | Data Portability ---
Author Organization FABRICIO Daphnie LEMOS Address [address] [facility] [place] [address] Care Team Providers Care Ripper Operator Name Role Phone LILIANA YBARRA Primary Care Provider Assessment Encounter Date Assessment Date Assessment LastModified by Organization Details LastModified Time 07/10/2024 07/10/2024 Visit today completed with supervisor diagnostic #[id number] Yu. Not available 07/10/2024 16:28:36 Plan of Treatment Reminders Order Date Submit Date Provider Last Modified By Organization Details Last Modified Time Details Appointments ANY 15 2024 01:45P DORI OLIVEROS Not available Not available Not available Lab cytology report, thin prep, smear or scraping, cervical or vaginal 2023 024 SEGUIN [facility], [address] [facility], [facility], [place], [address], 02/10/2024 13:11:17 urinalysi s, dipstick 2023 024 SEGUIN In-Office Order, Internal Use Only DO Not Attach Compendium DO Not Attach Compendium, Do Not Delete/merge, [id number] 11/17/2023 15:29:25 culture, urine 2023 024 SEGUIN [facility], [address] [facility], [address], [place], [address], 11/19/2023 03:36:53 Referral None recorded. Procedures None recorded. Surgeries None recorded. Imaging None recorded. Medication Orders Zithromax Z-Ramírez 250 mg tablet 2023 024 [facility], [address] [place] [address], [id number], 03/21/2024 14:43:55 Medrol (Ramírez) 4 mg tablets in a dose pack 2023 [facility], [address] [place] [address], [id number], 03/21/2024 14:43:56 meloxicam 15 mg tablet 2023 024 SEGUIN [facility], [address] [place] [address], [id number], 03/21/2024 14:43:54 meloxicam 15 mg tablet 2023 024 [facility]GUIN [employer] [facility], [address] [place] [address], [id number], 12/19/2023 17:59:25 Macrobid 100 mg capsule 2023 024 SEGUIN [facility], [address] [place] [address], [id number], 12/19/2023 16:48:18 loratadin e 10 mg tablet [address] [facility], [address] [place] [address], [id number], 11/17/2023 15:31:28 fluticaso ne propionat e 50 mcg/actua tion nasal spray,[facility] 2023 024 SEGUIN [facility], [address] [place] [address], [id number], 11/17/2023 15:31:34 meloxicam 15 mg tablet 2023 024 SEGUIN [facility], [address] [place] [address], [id number], 11/17/2023 15:31:28 Patient TargetsNo targets recorded. Patient Instructions Encounter Date Encounter Id Patient Instructions Last Modified By Organization Details Last Modified Time 11/17/2023 [id number] dolor al orinar (disuria): instrucciones de cuidado - [painful urination (dysuria): care instructions] [email or web address] Not available 11/17/2023 15:23:41 A healthy lifestyle: care instructions [email or web address] Not available 11/17/2023 15:23:41 sinusitis cr chantel: instrucciones de cuidado - [chronic sinusitis: care instructions] [email or web address] Not available 11/17/2023 15:23:41 cuidado de la espalda y prevenci n de lesiones: instrucciones de cuidado - [back care and preventing injuries: care instructions] [email or web address] Not available 11/17/2023 15:23:41 enfermedad de reflujo gastroesof gico (GERD): instrucciones de cuidado - [gastroesophageal reflux disease (GERD): care instructions] [email or web address] Not available 11/17/2023 15:25:31 12/19/2023 [id number] A healthy lifestyle: care instructions [email or web address] Not available 12/19/2023 17:19:24 cuidado de la espalda y prevenci n de lesiones: instrucciones de cuidado - [back care and preventing injuries: care instructions] [email or web address] Not available 12/19/2023 17:19:24 artritis: instrucciones de cuidado - [arthritis: care instructions] [email or web address] Not available 12/19/2023 17:19:24 artritis de cadera: ejercicios - [hip arthritis: exercises] [email or web address] Not available 12/19/2023 17:19:24 artritis de uara: ejercicios - [neck arthritis: exercises] [email or web address] Not [...] necessary [email or web address] Not available 12/19/2023 17:19:07 02/03/2024 [id number] A healthy lifestyle: care instructions [email or web address] Not available 02/03/2024 17:30:03 You had your [...] for sexually transmitted infection and unplanned . [email or web address] Not available 02/03/2024 17:13:47 03/20/2024 [id number] vacuna contra la influenza (gripe): instrucciones de [...] vaccine [email or web address] Not available 03/20/2024 16:19:53 07/10/2024 [id number] A healthy lifestyle: care instructions Not available 07/10/2024 16:46:09 Sent patient immediately to ER for 10/10 abdominal pain with RLQ and LLQ tenderness on exam. She states she understands the importance of proceeding to the ER and that she will go directly to [facility] via personal vehicle for further evaluation and treatment. Report called to Dr. Barron at [facility]. Not available 07/10/2024 16:45:53 Reason for Referral None Reported. Results Created Date Observation Date Name Description Value Unit Range Abnormal Flag Note LastModifiedBy Organization Detail LastModifiedTime 11/17/1911/19/2023 URINE CULTU REJOSEPH urine culture, routine FINAL REPORT Not Available [facility] ([facility] [place] [facility]) [address] [facility], [place], [address], 11/19/2023 03:36:52 11/17/19 24 11/19/2023 URINE CULTU JOSEPH CALVIN result 1 NO GROWTH Not Available [facility] ([facility] [place] [facility] [address] [facility], [place], [address], 11/19/2023 03:36:52 11/17/19 24 11/17/2023 urina lysis [...] 11/17/2023 urina lysis , dipst ick Specific [place] 1.015 Not Available In-Off ice Order Internal Use Only DO Not Attach Compendium DO Not Attach Compendium, Do Not Delete/merge, 11/17/2023 15:13:43 11/17/19 24 11/17/2023 urina lysis , dipst ick Ketone Negati ve Not Available In-Office Order Internal Use Only DO Not Attach Compendium DO Not Attach Compendium, Do Not Delete/merge, [id number] 11/17/2023 15:13:43 11/17/19 24 11/17/2023 urina lysis , dipst ick Bilirubin Negati ve Not Available In-Office Order Internal Use Only DO Not Attach Compendium DO Not Attach Compendium, Do Not Delete/merge, [id number] 11/17/2023 15:13:43 11/17/19 24 11/17/2023 urina lysis , dipst ick Glucose Negati ve Not Available In-Office Order Internal Use Only DO Not Attach Compendium DO Not Attach Compendium, Do Not Delete/merge, [id number] 11/17/2023 15:13:43 11/17/19 24 11/17/2023 urina lysis [...] rmed. No serum gel recei joel. TEST: [id number] 5 RPR, Rfx Qn RPR/[place] [address] 5 HIV Ab/p2 4 Ag with Refle x CONTA CTED TAYKA [facility] RE AT YOUR FACIL ITY ON 02/05 . Not Available [facility] ([facility] [place] [facility]) [address], [place], [address], 02/06/2024 13:09:47 02/03/2002/06/2024 RPR, RFX QN RPR/C ONFIR M TP RPR - Test not perfo rmed. No serum gel recei joel. CONTA CTED TAYKA [facility] RE AT YOUR FACIL ITY ON 02/05 . Not Available [facility] ([facility] [place] [facility] [address] [facility], [place], [address], 02/06/2024 13:09:47 02/03/2002/06/2024 HIV AB/P2 4 AG WITH REFLE X HIV Ab/P24 Ag screen - Test not perfo rmed. No serum gel recei joel. CONTA CTED TAYKA LABAR RE AT YOUR FACIL ITY ON 02/05 . Not Available [facility] ([facility] [place] [facility] [address] [facility], [place], [address], 02/06/2024 13:09:48 02/03/2002/08/2024 IGP, APTIM A HPV, RFX 16/18 ,45 HPV aptima NEGATI VE negati ve This nucle ic acid ampli ficat ion test detec ts fourt een high- risk HPV types (16,1 8,31, 33,35 ,39,4 5,51, 52,56 ,58,5 9,66, 68) witho ut diffe renti ation . Not Available [facility] ([facility] [place] [facility] [address] [facility], [place], [address], 02/10/2024 13:11:17 02/03/2002/10/2024 IGP, APTIM A HPV, RFX 16/18 ,45 diagnosis: COMMEN T NEGAT PAULETTE FOR INTRA EPITH ELIAL LESIO N OR SHAILESH ESPINAL . Not Available [facility] ([facility] [place] [facility]) [address] [facility], [place], [address], 02/10/2024 13:11:17 02/03/2002/10/2024 IGP, APTIM A HPV, RFX 16/18 ,45 specimen adequacy: COMMEN T Satis facto ry for evalu ation . Endoc ervic al and/o r squam ous metap lasti c cells (endo cervi sergio compo nent) are prese nt. Not Available [facility] ([facility] [place] [facility] [address] [facility], [place], [address], 02/10/2024 13:11:17 02/03/2002/10/2024 IGP, APTIM A HPV, RFX 16/18 ,45 clinician provided ICD10: CHRIST Winn Z12.4 Not Available [facility] ([facility] [place] [facility]) [address] [place], [address], 02/10/2024 13:11:17 02/03/2002/10/2024 IGP, APTIM A HPV, RFX 16/18 ,45 performed by: CHRIST Nair ams, Cytopa winn (AS[facility] ) Not Available [facility] ([facility] [place] [facility] [address] [place], [address], 02/10/2024 13:11:17 02/03/2002/10/2024 IGP, APTIM A HPV, RFX 16/18 ,45 . . Not Available [facility] ([facility] [place] [facility]) [address] [place], [address], 02/10/2024 13:11:17 02/03/2002/10/2024 IGP, APTIM A HPV, RFX 16/18 ,45 note: CRHIST Winn The Pap smear is a scree [...] ts do occur . Not Available [facility] ([facility] [place] [facility]) [address] [place], [address], 02/10/2024 13:11:17 02/03/2002/10/2024 IGP, APTIM A HPV, RFX 16/18 ,45 test methodology: CHRIST Winn This liqui d based ThinP rep(R ) pap test was screlaura greg with the use of an image guide emi owen. Not Available [facility] ([facility] [place] [facility] [address] [facility], [place], [address], 02/10/2024 13:11:17 02/03/20 24 02/10/2024 IGP, APTIM A HPV, RFX 16/18 ,45 HPV genotype reflex COMMEN T Crite daisy not met, HPV Genot ype not perfo rmed. Not Available [facility] ([facility] [place] [facility] [address] [facility], [place], [address], 02/10/2024 13:11:17 11/21/19 24 11/21/2023 CT, lumba r spine , w/o contr ast No observ ation record ed. [address], [address], 12/19/2023 17:44:21 02/10/20 24 02/10/2024 XR, kidne y + urete r + bladd er No observ ation record ed. [address], [address], 02/10/2024 16:49:21 05/22/19 25 05/22/2024 XR, abdom en No observ ation record ed. [address], [address], 06/07/2024 16:58:48 06/26/19 25 06/21/2024 MAMMO , scree nigel, bilat eral No observ ation record ed. [address] [facility] [address] [place], [address], 06/27/2024 16:13:51 06/30/19 25 06/29/2024 XR, hip + pelvi s, unila teral , 2 or 3 view No observ ation record ed. [address], [address], 07/02/2024 12:12:13 06/30/19 25 06/29/2024 XR, sacru m + coccy x No observ ation record ed. [facility] [address], [place], [address], 07/02/2024 12:13:43 07/11/19 25 07/10/2024 CT, abdom en + pelvi s, w/ contr ast No observ ation record ed. [facility] [address], [place], [address], 07/11/2024 10:40:19 Result Notes None recorded. Problems Name Problem SNOMED Code Status Onset Date Resolution Date Notes Provider Name and Address Organization Details Recorded Time Body mass index 30+ - obesity 704009189 Completed 201710/29/2020 IENSSA Mehta Attn: Navin g,[address] [facility], [place], [address], [place] [facility] 3 17:13:59 Menstrua l cramp 527650827 Completed 201702/01/2019 Jackeline Cause[place] RN [place] [facility] 9 14:28:07 Candidia sis 64092574 Completed 02/01/2019 Jackeline [place] [facility] 14:28:15 Impaired glucose toleranc e 4155276 Active 2020 Jackeline [place] [facility] [place] 12:45:12 Steatosi s of liver 786079142 Active 2020 Jackeline [place] [facility] 12:45:12 Vitamin D deficien cy 58866536 Completed 02/01/2019 INESSA Mehta Attn: Accountin g,[address] [place], [address], [place] [facility] 2 16:40:46 Vitamin D deficien cy 83974397 Active 2020 Jackeline [place] [facility] 12:45:12 Chronic maxillar y sinusiti s 30303201 Active 2021 Jackeline [place] [facility] 12:45:12 Glucose toleranc e test outside referenc e range 537327195 Completed 02/01/2019 Jackeline [place] [facility] 14:27:59 Glucose toleranc e test outside referenc e range 238642695 Completed Deonte Bey [place] [facility] 5 17:31:01 Body mass index 30+ - obesity 844920865 Active 2022 Liliana Ybarra [facility] Attn: Accountin g,[address] [facility], [place], [address], [place] [facility] 3 17:13:59 Mixed hyperlip idemia 025875186 Active 2022 Liliana Ybarra [facility] Attn: Accountin g,[address] [facility], [place], [address], [place] [facility] 3 17:13:59 Chronic headache disorder 604022321 Active 2022 Liliana Ybarra [facility] Attn: Accountin g,[address] [facility], [place], [address], [place] [facility] 3 17:13:59 History of calculus of kidney 936623779 Active 2022 Liliana Ybarra [facility] Attn: Accountin g,[address] [facility], [place], [address], [place] [facility] 3 17:13:59 Obesity 456520795 Active 2022 Liliana Ybarra [facility] Attn: Accountin g,[address] [facility], [place], [address], [place] [facility] 3 17:13:59 Mastodyn ia of bilatera l breasts 20648834624 005654 Active 2022 GUALBERTO MehtaSHEFALI Attn: Navin diego,[address] [place], [address], [place] [facility] 3 17:13:58 Gastroes ophageal reflux disease 209928712 Active Jackeline Cause[place] [facility] [place] 12:45:12 Gastroes ophageal reflux disease 925570592 Completed De[place]y [place] [facility] 5 17:31:01 Vitamin D deficien cy 64729161 Completed De[place] [facility] [place] 17:31:01 Bacteria l vaginosi s 827555586 Completed 202309/29/2023 Removal Reason: resolved Liliana Ybarra [facility] Attn: Navin diego,[address] [facility], [place], [address], [place] [facility] 4 16:11:19 Thoracic spondylo sis 360189490 [facility] 20[facility] Attn: Navin diego,[address] [place], [address], [place] [facility] 4 17:00:42 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 817929196 Active 2023 Jackeline [place] [facility] 4 15:51:09 Term pregnanc y delivere d 85150713 Completed 02/01/2019 [place] [facility] 14:27:46 Term pregnanc y delivere d 96143784 Completed [place] [facility] 17:31:01 [facility] 68212438 Completed 02/01/2019 [place] [facility] 14:28:18 [facility]part [facility] 55520819 Completed De[place] [facility] [place] 17:31:01 Acute urinary tract infectio n 256864660 Completed 02/01/2019 Jackeline Causey RN null, [facility] 9 14:28:11 Obstruct ion of milk duct 929262776 Completed 02/01/2019 Jackeline Causey RN null, [facility] 9 14:27:50 Obesity 356287950 Completed 201608/22/2017 Liliana Ybarra [facility]- Attn: Navin diego,[address] [facility], [place], [address], [facility] 3 17:13:59 Spasm of back muscles 667281273 Completed 201602/01/2019 Jackeline Causey RN null, [facility] 9 14:27:41 Headache 16839744 Completed 201602/01/2019 Jackeline Causey RN null, [facility] 4 15:50:47 Problem Notes None recorded. Procedures Surgical History Date Name Laterality Status Provider Name and Address Organization Details Recorded Time 02/03/20 24 Date of Last Pap Smear completed OSCAR CHAND NP Attn: Accounting,[address] [facility], [place], [address], [facility] 02/03/2024 17:28:55 03/21/20 23 Date of Last Mammogram completed Jackeline Causey RN [facility] 03/20/2024 15:38:49 01/14/20 23 Dilation and Curettage completed Jackeline Causey RN [facility] 01/14/2023 13:00:05 10/18/19 18 Control Implant Removal completed Sujata Dillard PA-C Attn: Accounting,[address] [facility], [place], [address], [facility] 10/17/2017 14:44:00 09/10/19 15 Control Implant Insertion completed Deonte Bey [place] 09/09/2014 17:35:00 04/25/19 03 Cholecystectomy completed Sarita Potts [place] 09/09/2014 15:54:11 Imaging Results Imaging Date Name Status LastModified by Organiz ation Details LastModified Time 11/21/2023 CT, lumbar spine, w/o contrast completed [address], [address], 12/19/2023 17:44:21 02/10/2024 XR, kidney + ureter + bladder completed [address], [address], 02/10/2024 16:49:21 05/22/2024 XR, abdomen completed [address], [address], 06/07/2024 16:58:48 06/21/2024 MAMMO, screening, bilateral completed [address] [place], [address], 06/27/2024 16:13:51 06/29/2024 XR, hip + pelvis, unilateral, 2 or 3 view completed [address], [address], 07/02/2024 12:12:13 06/29/2024 XR, sacrum + coccyx completed [address], [address], 07/02/2024 12:13:43 07/10/2024 CT, abdomen + pelvis, w/ contrast completed [address], [address], 07/11/2024 10:40:19 Procedure Notes None recorded. 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 Nexplanon 68 mg subdermal implant Inject [...] and Address Organization Details Last Updated DateTime 146.69 cm 30.4 kg/m2 85841.7 g 98 [degF] 92 /min 112 mm[Hg] 78 mm[Hg] Quetzali Marvin , MA [facility] 4 14:59:35 Date Recorded Body height Body temperature Body mass index (BMI) Body weight Oxygen saturation Oxygen saturation in Arterial blood by Pulse oximetry Heart rate Systolic blood pressure Diastolic blood pressure Provider Name and Address Organization Details Last Updated DateTime 4 146.69 cm 98.1 [degF] 30.4 kg/m2 82631.7 g 97 % 97 % 94 /min 108 mm[Hg] 70 mm[Hg] Shanti winn MA [facility] 4 16:36:35 Date Recorded Body height Body mass index (BMI) Body weight Heart rate Systolic blood pressure Diastolic blood pressure Provider Name and Address Organization Details Last Updated DateTime 4 146.69 cm 30.4 kg/m2 99572.4 4 g 93 /min 120 mm[Hg] 81 mm[Hg] Maryellen Wilder MA [facility] 4 17:15:44 Date Recorded Body height Body mass index (BMI) Body weight Oxygen saturation Oxygen saturation in Arterial blood by Pulse oximetry Heart rate Body temperature Systolic blood pressure Diastolic blood pressure Provider Name and Address Organization Details Last Updated DateTime 4 146.69 cm 30.7 kg/m2 09111.0 8 g 97 % 97 % 90 /min 98 [degF] 114 mm[Hg] 68 mm[Hg] Jackeline Causey RN [facility] 4 15:50:22 Date Recorded Body height Body mass index (BMI) Body weight Oxygen saturation Oxygen saturation in Arterial blood by Pulse oximetry Heart rate Respiratory rate Body temperature Systolic blood pressure Diastolic blood pressure Provider Name and Address Organization Details Last Updated DateTime 5 146.69 cm 31.4 kg/m2 36397.2 6 g 98 % 98 % 86 /min 16 /min 98.1 [degF] 128 mm[Hg] 75 mm[Hg] Sydni Parham MA [facility] 5 15:57:51 Social History Question Answer Notes LastModified by Organizat ion Details LastModified Time Tobacco Smoking Status Never Smoker Leidy No MA null, [facility] 04/08/2014 17:08:12 Do You Have An Advance [...] Anxious, Or Unable To Sleep At Night)? [id number] Information not available 11/30/2021 Do You Use [...] History Condition Response Coronary Artery Disease N Blood Diseases N Kidney Cyst N Hyperthyroidism N Blood disorders N MRSA N Blood Transfusion N Emphysema N Depression N COPD N Blood Clots N Pneumonia N Peripheral Arterial Disease N Premature N Edema N TIA N Headaches/Migraines N [...] Disorder N Colon Polyps N Heart Attack ([place]) N Diabetes N Cardiomyopathy N Blood Transfusions [...] virus, quadrivalent, PF 9 completed Not Available [facility] 05/12/2019 02:38:14 Influenza, split virus, quadrivalent, PF [...] SNOMED-CT Code Diagnosis ICD10 Code Diagnosis Note [id number] LORENA Champagne (LIFE INSURANCE SPECIALIST) [address] [place] [address] 04/08/2014 16:37:04 04/09/2014 14:11:02 [id number] Deonte Anayamarylou Villarreal (LIFE INSURANCE SPECIALIST) [address] [place] [address] 05/20/2014 16:24:50 05/20/2014 17:37:40 [id number] Acute urin aleshia tract infection 883275219 [id number] COLBY Dill (LIFE INSURANCE SPECIALIST) [address] [place] [address] 06/17/2014 09:32:36 06/17/2014 10:46:22 [id number] Advanced m aternal age 779660751 Vitamin D deficiency 67138880 [id number] COLBY Dill (LIFE INSURANCE SPECIALIST) [address] [place] [address] 07/02/2014 09:27:25 07/02/2014 10:45:56 Normal 75206162 [facility] 114634032 Gastroesop hageal reflux disease 925234156 Vitamin D deficiency 25503669 Glucose to lerance test outside reference range 695695996 [id number] LORENA Champagne (LIFE INSURANCE SPECIALIST) [address] [place] [address] 07/22/2014 16:25:15 07/22/2014 16:52:30 Normal 67026396 Advanced m aternal age 598580229 Glucose to lerance test outside reference range 874688172 [id number] Phil (LIFE INSURANCE SPECIALIST) [address] [place] [address] 09/09/2014 15:04:17 09/09/2014 16:43:10 state [id number] [facility] nning surveillance 771503689 Insertion of subcutaneous contraceptive 197132917 Contracept ion care management 041903817 [id number] Rosanne Hdz Phil (LIFE INSURANCE SPECIALIST) [address] [place] [address] 10/08/2014 09:55:11 10/08/2014 10:35:57 Subcutaneous contraceptive implant palpable 440384989 [id number] LORENA Champagne (LIFE INSURANCE SPECIALIST) [address] [place] [phone] 12/16/2014 15:34:09 12/17/2014 12:09:38 Subcutaneous contraceptive implant palpable 594672885 [facility] nning surveillance 199314953 Active or passive immunization 575650166 [id number] OLI Zapata (Adult Med) [address] [place] [phone] 11/19/2015 12:24:00 11/19/2015 13:33:39 Obstruction of milk duct 496537608 N64.89 Advised warm compress and warm shower to help with pain Advised to breast feed from that breast as much as possible to expel the milk Advised if she develops nausea, vomiting, fever, chills, any type of discharge from the nipple to RTC [id number] OLI Zapata (Adult Med) [address] [place] [phone] 08/17/2016 15:55:56 08/17/2016 18:29:48 Obesity 888611429 E66.9 Advised 30 minutes of exercise 5 days/week Advised to not drink her calories Advised 3 balanced meals/day with plenty of fruits and vegetables Gastroesop hageal reflux disease 645583865 K21.9 Advised to stay away from spicy and greasy foodsAdvis ed to stay away from fatty foodsDo not eat within 2 hours of going to bedStay sitting up after mealsNo smoking She is currently eating 10 tortillas/ dayAdvised on 1-2 Vitamin D deficiency 347 53719 E55.9 Spasm of back muscles 20 1192808 M62.830 Discussed and demonstrat ed different stretches she could tryAdvised we will begin muscle relaxersRT C if no improvemen tAdvised that 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, 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, 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 and cause them to be tight [id number] OLI Zapata (Adult Med) [address] [place] [address] 11/17/2016 16:23:45 11/17/2016 18:02:20 Headache 12780125 R51 Discussed that at this time since [...] LOC go directly to the ER Obesity 972501505 E66.9 Advised 30 minutes of exercise 5 days/week Advised to not drink her calories Advised 3 balanced meals/day with plenty of fruits and vegetables [id number] Deonte Sotero Villarreal (LIFE INSURANCE SPECIALIST) [address] [place] [phone] 06/08/2017 15:02:14 06/09/2017 13:34:16 Increased frequency of urination 242566540 R35.0 Family candelario nning surveillance 642981352 Z30.09 Spasm of back muscles 20 2417938 M62.224 [id number] OLI Zapata (Adult Med) [address] [place] [address] 08/22/2017 10:52:26 08/22/2017 11:34:00 Seasonal allergic rhinitis 545762927 J30.2 Menstrual cramp 38103596 1 N94.6 Will prescribed ibuprofen TID PRN for menstrual back pain - discussed that since her back pain only occurs when she has her cycle, this is the likely causes and she can treat symptomati aurora Vitamin D deficiency 347 05163 E55.9 RTC 4 months for recheck Body mass index 30+ - obesity 080265770 Z68.32 Advised 30 minutes of exercise 5 days/week Advised to not drink her calories Advised 3 balanced meals/day with plenty of fruits and vegetables [id number] OLI Zapata (Adult Med) [address] [place] [address] 10/17/2017 14:12:22 10/18/2017 11:34:03 Contraception care 310486686 Z30.40 Patient to begin OCPs at this time. 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 Discussed that without control her fertility is returned immediatel y d/t removal of nexplanon Subcutaneo us contraceptive implant palpable 344503658 Z30.46 Removed today [id number] Deonte Sotero Villarreal (LIFE INSURANCE SPECIALIST) [address] [place] [address] 12/20/2018 15:30:40 12/21/2018 12:51:47 Gynecologic examination 46042313 Z01.419 Exposure t o sexually transmissible disorder 582791281 Z20.2 Family candelario nning surveillance 236774547 Z30.09 [id number] [facility] [address] [place] [address] 02/01/2019 14:18:52 02/02/2019 08:41:02 Gastroesophageal reflux disease 536298756 K21.9 Administra tion of influenza vaccine 04726847 Z23 Body mass index 25-29 - overweight 574473299 Z68.28 BMI 28.4Health y weight range 90-120 Depressive disorder 3548 9007 F32.9 mildwill monitor [id number] [facility] [address] [place] [address] 04/10/2019 14:59:36 04/11/2019 10:40:59 Gastroesophageal reflux disease 472984577 K21.9 Body mass index 25-29 - overweight 930987509 Z68.28 BMI 28.4Health y weight range 90-120 Allergic conjunctivitis 556263532 H10.13 [id number] [facility] [address] [place] [address] 05/24/2019 16:32:10 05/25/2019 12:34:26 Gastroesophageal reflux disease 380379442 K21.9 She completed Omeprazole felt fine while taking itPatient started having abdominal bloating and epigastric abd pain after having spicy foods denies nausea/vom iting Body mass index 25-29 - overweight 480273749 Z68.28 BMI 28.4Health y weight range 90-120 Epigastric pain 45624597 R10.13 [id number] Tere Melendez, [facility] [address] [place] [address] 05/31/2019 17:32:56 06/04/2019 08:59:22 Epigastric pain 50510035 R10.13 [id number] [facility] [address] [place] [address] 07/23/2019 16:14:48 07/24/2019 08:16:51 Gastroesophageal reflux disease 933437382 K21.9 She completed Omeprazole felt fine while taking itPatient started having abdominal bloating and epigastric abd pain after having spicy foods denies nausea/vom iting Epigastric pain 65784101 R10.13 Still has not had EGD xray with gastrointe stinal series with air contrastSh e went to [place] to get testing and was told hospital would be calling [facility] for?? Body mass index 25-29 - overweight 313757514 Z68.28 BMI 28.4Health y weight range 90-916 [id number] [facility] [address] [place] [address] 01/08/2020 12:38:18 01/09/2020 07:14:54 Otitis externa 8674026 H60.93 Itching of ear 002069048 L29.8 [id number] BRITTNEE RIVERA, ELVIN [facility] [address] [place] [address] 03/17/2020 14:45:31 03/18/2020 06:21:26 Influenza vaccine needed 8906898148 106 Z23 History of urinary tract infection 2302499971 107 Z87.607 [id number] Deonte Villarreal (LIFE INSURANCE SPECIALIST) [address] [place] [address] 04/02/2020 09:02:29 04/09/2020 11:22:39 Family planning surveillance 260329823 Z30.09 [id number] [facility] [address] [place] [address] 06/19/2020 16:06:47 06/23/2020 13:30:54 Gastroesophageal reflux disease 900724907 K21.9 She completed Omeprazole felt fine while taking itPatient started having abdominal bloating and epigastric abd pain after having spicy foods denies nausea/vom iting Epigastric pain 51502174 R10.13 Still has not had EGD xray with gastrointe stinal series with air contrastSh e went to [place] to get testing and was told hospital would be calling [facility] for?? Body mass index 25-29 - overweight 428559726 Z68.28 BMI 28.4Health y weight range 90-120 Abdominal pain 82817954 R10.9 Chronic constipation 236 608999 K59.09 Depression screening 171 322042 Z13.31 negative [id number] Deonte Sotero Villarreal (LIFE INSURANCE SPECIALIST) [address] [place] [address] 06/26/2020 08:31:10 07/04/2020 07:30:35 Family planning surveillance 607251091 Z30.09 Screening for malignant neoplasm of breast 222782027 Z12.39 [id number] [facility] [address] [place] [address] 07/16/2020 16:36:56 07/17/2020 15:04:35 Abdominal pain 90804722 R10.9 Better fatty liver on abdominal u/s 07/03/2020 Gastroesop hageal reflux disease 168806263 K21.9 She completed Omeprazole felt fine while taking it Patient started having abdominal bloating and epigastric abd pain after having spicy foods denies nausea/vom iting Still has not had EGD xray with gastrointe stinal series with air contrast She went to [place] to get testing and was told hospital would be calling [facility] for?? Body mass index 25-29 - overweight 870446728 Z68.28 BMI 28.4Health y weight range 90-120 Steatosis of liver 1007 K76.0 fatty liver on abdominal u/s 07/03/2020 stressed diet informatio n no tylenol In 2017 lipid panel cholestero l, total 175 triglyceri pato 59 HDL cholestero l 65 VLDL cholestero l sergio 12 LDL cholestero l 98 Past pregn griffin history of gestational diabetes mellitus 509584802 Z86.32 It appears patient has now developed DM2 [id number] Liliana Ybarra, [facility] [address] [place] [address] 07/31/2020 15:00:44 08/04/2020 16:08:39 Past history of gestational diabetes mellitus 151295341 Z86.32 Had BS in the ER of [...] 152-199 lbs 6'4= 156-204 lbs}} Follow-up visit 30241715 9 Z09 40 y/o HF here for follow up er visit at [facility] on 07/02/2020 for headaches. At that visit she was found to have hyperglyce walter, UTI and headache which responded to Toradol IM. The patient has a history of Gestationa l DM. Impaired g lucose tolerance 1537146 R73.03 HA1C 5.4 Body mass index 25-29 - overweight 355397136 Z68.28 BMI 29.6 Ht 4' 9.75 Healthy weight range 90-120 Patient has lost 10 pounds since last seen Urinary tr act infectious disease 51663465 N39.0 [id number] Vikram Joseph Vaccine [facility] [address] [place] [address] 10/13/2020 11:14:03 10/15/2020 16:05:57 Administration of SARS-CoV-2 antigen vaccine 909121119 Z23 [id number] [place] [address] [address] 10/29/2020 10:07:38 10/30/2020 14:08:49 Past history of gestational diabetes mellitus 615063557 Z86.32 Had BS in the ER of [...] 6'4= 156-204 lbs}} Impaired g lucose tolerance 8940058 R73.03 HA1C 5.4 Body mass index 25-29 - overweight 363177981 Z68.28 BMI 27.4 Ht 4' 9.75 Healthy weight range 90-120 Patient has lost 10 pounds since last seen [id number] [facility] [address] [place] [address] 11/01/2020 13:26:40 11/04/2020 19:46:54 Administration of SARS-CoV-2 antigen vaccine 917765335 Z23 [id number] [place] [address] [place] [address] 11/26/2020 16:32:04 11/28/2020 09:40:12 Headache 97842138 R51.9 11/03/2020 CT of BRAIN normal Reduced visual acuity 13 478770 H54.7 vision 20/40 Impaired g lucose tolerance 8675017 R73.03 HA1C 5.3 Vitamin D deficiency 347 13928 E55.9 take otc vitamin D3 1000 IU daiy Steatosis of liver 1007 K76.0 fatty liver on abdominal u/s 07/03/2020 stressed diet informatio n no tylenol In 2016 lipid panel cholestero l, total 175 triglyceri pato 59 HDL cholestero l 65 VLDL cholestero l sergio 12 LDL cholestero l 98 Hyperlipid emia screening 187709899 Z13.518 [id number] Zachary Haque MD [facility] [address] [place] [address] 01/28/2021 15:49:40 02/06/2021 06:30:27 Impaired glucose tolerance 3218684 R73.03 HA1C 5.3 Headache 03733993 R51.9 11/03/2020 CT of BRAIN normal Reduced visual acuity 13 503171 H54.7 vision 20/40Has referral to see eye doctorPati ent voices has not gone yet Vitamin D deficiency 347 54919 E55.9 take otc vitamin D3 1000 IU daiy Steatosis of liver 1007 K76.0 fatty liver on abdominal u/s 07/03/2020 stressed diet informatio n no tylenol In 2016 lipid panel cholestero l, total 175 triglyceri pato 59 HDL cholestero l 65 VLDL cholestero l sergio 12 LDL cholestero l 98 Hyperlipid emia screening 085744810 Z13.220 Rechecking lipids-pat ient did not return for fasting labs Influenza vaccination declined 674940373 Z28.21 [id number] Moi Wong MA [facility] [address] [place] [address] 01/30/2021 11:28:46 02/04/2021 06:31:21 Vitamin D deficiency 15856881 E55.9 take otc vitamin D3 1000 IU daiy Hyperlipid emia screening 160552527 Z13.402 [id number] Lida Lazo MD [facility] [address] [place] [address] 02/13/2021 14:55:26 02/17/2021 14:38:25 Headache 37290129 R51.9 Presbyopia 38626467 H52. 4 [id number] [facility] [address] [place] [address] 02/26/2021 15:35:27 03/05/2021 07:03:13 Impaired glucose tolerance 0990911 R73.03 HA1C 5.3 Headache 67414045 R51.9 11/03/2020 CT of BRAIN normalhead aches for last 8 months-top of headhad normal vision check early changes but not causing headachesw orsening headaches + nausealayi ng down helps Vitamin D deficiency 347 20221 E55.9 Vitamin D 16. a little better but needs to continue taking Vitamin Dtake otc vitamin D3 1000 IU daiy Steatosis of liver 1007 K76.0 fatty liver on abdominal u/s 07/03/2020 stressed diet informatio n no tylenol In 2017 lipid panel cholestero l, total 175 triglyceri pato 59 HDL cholestero l 65 VLDL cholestero l sergio 12 LDL cholestero l 98 Abdominal pain 21812545 R10.9 mid epigastric patient has GERDfatty liver on abdominal u/s 07/03/2020 Vaginitis 31031298 N76.0 Acute non- suppurative serous otitis media 984602004 H65.03 L>R Administra tion of influenza vaccine 17919067 Z23 [id number] [facility] [address] [place] [address] 06/26/2021 15:41:11 06/29/2021 06:59:40 Abdominal pain 98791248 R10.9 mid epigastric patient has GERDfatty liver on abdominal u/s 07/03/2020 Headache 71307284 R51.9 11/03/2020 CT of BRAIN normalhead aches [...] LAYING DOWN HELPS Impaired g lucose tolerance 6931516 R73.03 HA1C 5.3 Vitamin D deficiency 347 75861 E55.9 Vitamin D 16. a little better [...] in your coffee. Chronic ma xillary sinusitis 25742571 J32.0 mri brain WO CONTRAST ON 03/05/2021 SHOWS CHRONIC SINUSITIS Depression screening 171 337539 Z13.31 negative Body mass index 25-29 - overweight 636187411 Z68.28 BMI 29 Ht 4' 9.75 Healthy weight range 90-120 Patient has lost 10 pounds since last seen [id number] Liliana Ybarra, [facility] [address] [place] [address] 08/12/2021 11:57:22 08/13/2021 13:22:10 Initiation of depot contraception done 2938297982 47330 Z30.013 41 y/o HF [id number] presents for initiation of -cont rol. SHe has used in the past depo provera injection and Nexplanon. Had a pap on 12/20/2018 normal and mammogram 06/26/2020. She wants to start depo provera injection. Has no contraindi cations. Body mass index 25-29 - overweight 669362746 Z68.28 BMI 29 Ht 4' 9.75 Healthy weight range 90-120 Patient has lost 10 pounds since last seen Screening for malignant neoplasm of breast 028583767 Z12.39 [id number] Liliana Ybarra, [facility] [address] [place] [address] 11/30/2021 15:22:51 12/01/2021 11:50:38 Gastroesophageal reflux disease 248968039 K21.9 She completed Omeprazole felt fine while taking it Patient started having abdominal bloating and epigastric abd pain after having spicy foods denies nausea/vom iting Still has not had EGD xray with gastrointe stinal series with air contrast She went to [place] to get testing and was told hospital would be calling [facility] for?? Headache 36809908 R51.9 11/03/2020 CT of BRAIN normalhead aches [...] HEADACHES WORSENING HEADACHES + NAUSEA LAYING DOWN Lillie has now seen neurologis t who has prescribed tylenol with codeine. However the patient was unable to get for unknown reason. She has been advised to go pick it up and try Rx. Abdominal pain 32128455 R10.9 mid epigastric patient has GERDfatty liver on abdominal u/s 07/03/2020 Vitamin D deficiency 347 14989 E55.9 Vitamin D 16. a little better [...] cream in your coffee. Depression screening 171 214341 Z13.31 negative Chronic oh xillary sinusitis 66751808 J32.0 mri brain WO CONTRAST ON 03/05/2021 SHOWS CHRONIC SINUSITIS Body mass index 30+ - obesity 129754428 Z68.30 BMI 30 [id number] Liliana Ybarra [facility] [address] [place], [place] [address] 12/04/2021 16:16:54 12/07/2021 12:45:57 Screening for malignant neoplasm of breast 173069333 Z12.39 IBCCP CBELAST PAP Cytology normal negative HPV in 12/20/2018L AST MAMMO 09/04/2020 BIRADS 2 Body mass index 30+ - obesity 094571204 Z68.30 BMI 30Ht 4' 9.75 Healthy weight range 90-127 [id number] [facility] [address] [place], [place] [address] 01/08/2022 16:12:47 01/10/2022 15:30:36 Vitamin D deficiency 77384510 E55.9 Vitamin D 16. a little better but needs to continue taking Vitamin Dtake otc vitamin D3 1000 IU dailuke [id number] Liliana Ybarra [facility] [address] [place], [place] [address] 03/02/2022 16:23:29 03/03/2022 13:19:59 Gastroesophageal reflux disease 935990776 K21.9 She completed Omeprazole felt fine while [...] in your coffee. Vitamin D deficiency 347 27725 E55.9 Vitamin D 24.2 .better but needs to continue taking Vitamin Dtake otc vitamin D3 1000 IU daily Chronic ma xillary sinusitis 12760786 J32.0 mri brain WO CONTRAST ON 03/05/2021 SHOWS CHRONIC SINUSITIS Depression screening 171 887754 Z13.31 PHQ2-9 negative Body mass index 30+ - obesity 939743930 Z68.30 BMI 30.4 Mental [facility] screening 849044101 Z13.39 GEMMA-7 negative Administra tion of influenza vaccine 12007901 Z23 [id number] [facility] [address] [place] [address] 06/02/2022 15:43:21 06/04/2022 14:39:01 Body mass index 25-29 - overweight 681416808 Z68.28 BMI 29.7 Ht 4' 9.75 Healthy weight range 90-120 Chronic ma xillary sinusitis 93173342 J32.0 mri brain WO CONTRAST ON 03/05/2021 SHOWS CHRONIC SINUSITIS Overweight 238681921 E66 .3 BMI 29.7 Ht 4' 9.75 Healthy weight range 90-120 Gastroesop hageal reflux disease 021468778 K21.9 She completed Omeprazole felt fine while [...] in your coffee. Vitamin D deficiency 347 94458 E55.9 Vitamin D 24.2 .better but needs to continue taking Vitamin Dtake otc vitamin D3 1000 IU daily Depression screening 171 312373 Z13.31 PHQ2-9 negative Mental [facility] screening 380746843 Z13.39 GEMMA-7 negative Impaired g lucose tolerance 4295358 R73.03 02/26/2021 HA1C 5.8 Watch your weight. [...] make prediabete s worse. Mixed hyperlipidemia 267 721271 E78.2 01/30/2021 CHO 183TRIG 76hdl 66ldl 103 [...] in your coffee. Chronic he adache disorder 701860032 G44.89 Has seen neurologis t 07/15/2021; 10/07/[address] of brainHas tried rx -still gets headachesc all neurologis ts office to make f/u appt History of calculus of kidney 201431516 Z87.442 seen in the [facility] ssed kidney stonefeels fineneeds to drink more water [id number] [facility]ERT [facility] [address] [place] [address] 09/29/2022 16:02:09 10/01/2022 14:58:11 Body mass index 30+ - obesity 571396098 Z68.30 BMI 30.1Ht 4' 9.75 Healthy weight range 90-120 Obesity 128832098 E66.9 BMI 30.1Ht 4' 9.75 Healthy weight range 90-120 Vitamin D deficiency 347 33275 E55.9 Vitamin D 24.2 .better but needs to continue taking Vitamin Dtake otc vitamin D3 1000 IU daily Mixed hyperlipidemia 267 365015 E78.2 01/30/2021 CHO 183TRIG 76hdl 66ldl 103 [...] in your coffee. Chronic ma xillary sinusitis 11258906 J32.0 mri brain WO CONTRAST ON 03/05/2021 SHOWS CHRONIC SINUSITIS Steatosis of liver 29988 1007 K76.0 fatty liver on abdominal u/s [...] in your coffee. Impaired g lucose tolerance 9480231 R73.03 02/26/2021 HA1C 5.8 Watch your weight. [...] make prediabete s worse. Depression screening 171 518037 Z13.31 PHQ2-9 negative Mental hea lt screening 539351799 Z13.39 GEMMA-7 negative Chronic he adache disorder 728964222 G44.89 Has seen neurologis t 07/15/2021; 10/07/[address] of brainHas tried rx -still gets headachesc all neurologis ts office to make f/u appt History of calculus of kidney 332213291 Z87.442 seen in the [facility] ssed kidney stonefeels fineneeds to drink more water Gastroesop hageal reflux disease 827513661 K21.9 She completed Omeprazole felt fine while taking it Patient started having abdominal bloating and epigastric abd pain after having spicy foods denies nausea/vom itingHas refills at home Increased frequency of urination 188606495 R35.0 [id number] Liliana Ybarra [facility] [address] [place] [address] 11/09/2022 16:43:36 11/10/2022 15:54:09 Mastodynia of bilateral breasts 0902952640 7156725 N64.4 Body mass index 30+ - obesity 705311836 Z68.30 BMI 30.1Ht 4' 9.75 Healthy weight range 90-120 Depression screening 171 927591 Z13.31 PHQ2-9 negative Mental hea lt screening 839207637 Z13.39 GEMMA-7 negative [id number] Liliana Ybarra [facility] [address] [place] [address] 12/30/2022 15:41:09 01/04/2023 14:52:13 Body mass index 25-29 - overweight 809564987 Z68.28 BMI 29.7 Ht 4' 9.75 Healthy weight range 90-120 Urine preg palmer test positive 740221848 Z32.01 12/24/2022 BHCG quant = 225699912/30 UA HCG +;12/31/19 BHCG quant = 37828 Depression screening 171 945501 Z13.31 PHQ2-9 negative Mental hea lth screening 405519346 Z13.39 GEMMA-7 negative Miscarriage 01109176 O03 .9 12/24/2022 BHCG quant = 4440766 UA HCG +;12/31/19 BHCG quant = 99272 [id number] Luis Miguel Mueller MD [facility] [address] [place] [address] 01/27/2023 16:12:06 01/28/2023 12:51:05 Follow-up visit 280467333 Z09 40 y/o HF here for follow up er visit for D&C following missed abortionla st month. Miscarriage 80556762 O03 .9 12/24/2022 BHCG quant = 365811612/30 UA HCG +;12/31/19 BHCG quant = 8474499 BHCG quant 2694 from ER records Body mass index 25-29 - overweight 684175811 Z68.28 BMI 29.6 Ht 4' 9.75 Healthy weight range 90-120 Depression screening 171 892663 Z13.31 PHQ2-9 negative Mental hea lth screening 882568314 Z13.39 GEMMA-7 negative Initial pr escription of oral contraception 938946329 Z30.064 [id number] Liliana Ybarra [facility] [address] [place] [address] 03/21/2023 16:46:39 03/23/2023 12:24:13 Headache 04491209 R51.9 11/03/2020 CT of BRAIN normalhead aches [...] HEADACHES WORSENING HEADACHES + NAUSEA LAYING DOWN Lillie has now seen neurologis t who has prescribed tylenol with codeine. However the patient was unable to get for unknown reason. She has been advised to go pick it up and try Rx. She doesnt want to return to neurologis t 02/28/2023 CT of HEAD WO CONTRAST NORMAL at [facility] Naprosyn 500mg bid for prn headaches- pt voices did not get at pharmacy Follow-up visit 66088493 9 Z09 42 y/o HF here for [...] tylenol for headaches. Chronic he adache disorder 178868552 G44.89 Has seen neurologis t 07/15/2021; 10/07/[address] of brainHas tried rx -still gets headachesc all neurologis ts office to make f/u appt Stress and adjustment reaction 579249797 F43.9 PHQ 2-9 + GAD-7 + .psyc hotherapis t appointmen t and/or psychiatri st Body mass index 30+ - obesity 742443008 Z68.30 BMI 30.4Ht 4' 9.75 Healthy weight range 90-120 Depression screening 171 486266 Z13.31 PHQ2-9 ++psychiat rist/psych otherapist listpatien t to seek/make his own appointmen t MELISSA Mental hea lth screening 477442130 Z13.39 GEMMA-7 ++psychiat rist/psych otherapist listpatien t to seek/make his own appointmen t MELISAS Administra tion of influenza vaccine 77049527 Z23 [id number] [facility] [address] 4 05/18/2023 15:49:36 05/25/2023 14:13:28 Obesity 817138334 E66.9 BMI 30.9Ht 4' 9.75 Healthy weight range 90-120 Abnormal vaginal odor 62 270169 N89.8 since having miscarriag e and D&C Hebert 56193224 N 94.0 may use ibuprofen or naprosyn as necessary Bacterial vaginosis 4197 02255 N76.0 NUSWAB + B Vag [id number] Shanti [facility] [address] [place] [address] 05/20/2023 15:01:48 05/26/2023 14:06:20 Abnormal vaginal odor 16956655 N89.8 since having miscarriag e and D&C [id number] [facility] [address] [place] [address] 06/21/2023 15:28:31 06/22/2023 14:22:56 Mixed hyperlipidemia 310123122 E78.2 01/30/2021 CHO 183TRIG 76hdl 66ldl 103 03/02/2022 cho 215.6trig 143HDL 56.7LDL 133.5Avoid all breads, potatoes, cereal, pasta, rice, margarine, refined sugars, milk yogurt, ice cream, juices, soda (including diet), beer, and manmade or manufactur ed desserts. Enjoy steak, fish, chicken (no skin), pork, butter, vegetables , beans, nuts, whole eggs, cheese (low fat or skim), cream in your coffee. Obesity 289278603 E66.9 BMI 31.2Ht 4' 9.75 Healthy weight range 90-120 Body mass index 30+ - obesity 697557875 Z68.30 BMI 31.2Ht 4' 9.75 Healthy weight range 90-120 Vitamin D deficiency 347 33079 E55.9 Vitamin D 21.1.donell r but needs to continue taking Vitamin Dtake otc vitamin D3 1000 IU daily Chronic ma xillary sinusitis 73696419 J32.0 mri brain WO CONTRAST ON 03/05/2021 SHOWS CHRONIC SINUSITIS Steatosis of liver 41115 1007 K76.0 fatty liver on abdominal u/s [...] in your coffee. Impaired g lucose tolerance 7445424 R73.03 02/26/2021 HA1C 5.802/27/2 024 HA1C 5.7 Watch your weight. A [...] prediabete s worse. Chronic he adache disorder 044896906 G44.89 Has seen neurologis t 07/15/2021; 10/07/[address] of brainHas tried rx -still gets headachesc all neurologis ts office to make f/u appt History of calculus of kidney 769983990 Z87.442 [facility] kidney stonefeels fineneeds to drink more water Depression screening 171 584239 Z13.31 PHQ2-9 negative Mental hea lth screening 771218727 Z13.39 GEMMA-7 negative Gastroesop hageal reflux disease 165359385 K21.9 She completed Omeprazole felt fine while taking it Patient started having abdominal bloating and epigastric abd pain after having spicy foods denies nausea/vom itingHas refills at home [id number] [facility] [address] [place] [address] 09/29/2023 15:41:48 09/30/2023 12:58:31 Follow-up visit 730600654 Z09 43 y/o HF here for follow up er visit for lower abdominal pain on 09/06/2023 at [facility]. The patient presented with lower abd pain [...] low back. Acute urin aleshia tract infection 008830236 N39.0 UA dip shows small leuks and trace of blood Abdominal pain 95547036 R10.9 lower abdominal pain with dysuriaCT abd/pelvis w/contrast unremarkab le Obesity 722567864 E66.9 BMI 30Ht 4' 9.75 Healthy weight range 90-120 Thoracic spondylosis [id number] M47.814 05/12/2022 CT abd/pelvis with contrast shows mild thoracic spondylosi s [id number] YANG NAILS PA-C [facility] [address] [place] [address] 11/17/2023 14:53:14 11/22/2023 18:44:06 Chronic maxillary sinusitis 38319135 J32.0 C/W Loratadine 10mg dailyC/W fluticason e nasal spray Obesity 231869404 E66.8 BMI 30.4 Advised decreased portion sizes, good food choices, limited eating out or fast food and eliminate soda and juice from diet. Advised physical activity daily and offered encouragem ent to continue with positive changes made so far. Dysuria 35166637 R30.0 Trace blood on UA todayWill treat empiricall y with Macrobid 100mg BID x 10 daysUrine Cx sent out Low back pain 660708393 M54.50 Start meloxicam 15mg daily for back painDo not take other NSAIDs such as Ibuprofen, Naproxen while on this medication Gastroesop hageal reflux disease 093828975 K21.9 Resolved- pt states does not take meds and does not get acid reflux anymore [id number] GUALBERTO Mehta-SHEFALI [facility] [address] [place] [address] 12/19/2023 16:27:44 12/20/2023 14:20:09 Low back pain 806168297 M54.50 Start meloxicam 15mg daily for back painDo not take other NSAIDs such as Ibuprofen, Naproxen while on this medication Obesity 327235582 E66.8 BMI 30.4 Advised decreased portion sizes, good food choices, limited eating out or fast food and eliminate soda and juice from diet. Advised physical activity daily and offered encouragem ent to continue with positive changes made so far. 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 Pap and HPV testing done; Last pap smear: 12/20/2018 NILM HRHPV Neg2. Pt is not using control.3. Educated on STI reduction and prevention . Encouraged condom use.4. 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 799252140 M47.9 11/21/2023 CT lumbar spine w/o contrast disc bulges L2-L3 through L4-L5 disc protrusion at L5-S1, moderate facet osteoarthr itis, sacroiliac OA, lumbar spondylosi s Low back pain 568130047 M54.50 Start meloxicam 15mg daily for back painDo not take other NSAIDs such as Ibuprofen, Naproxen while on this medication Thoracic spondylosis 387 076769 M47.814 05/12/2022 CT abd/pelvis with contrast shows mild thoracic spondylosi s0 CT Abd/pelvis w contrast normal11/20 CT lumbar spine w/o contrast disc bulges L2-L3 through L4-L5 disc protrusion at L5-S1, moderate facet osteoarthr itis, sacroiliac OA, lumbar spondylosi s Obesity 040611276 E66.9 BMI 30.4 Advised decreased portion sizes, good food choices, limited eating out or fast food and eliminate soda and juice from diet. Advised physical activity daily and offered encouragem ent to continue with positive changes made so far. Acute sinusitis 54382491 J01.90 Administra tion of influenza vaccine 68584865 Z23 [id number] JANNA CRYSTAL NP [facility] [address] [place] [address] 07/10/2024 15:51:51 07/11/2024 09:21:59 Obesity 907290376 E66.9 Left lower quadrant pain 216962100 R10.32 Health Concerns Section Related Observation LastModified by Organization Detai ls LastModified Time None Recorded Concern Status LastModified by Organization Details LastModified Time None Recorded Advance Directives Directive N: Payers Encounter Date Sequence Insurance Name Policy Number Policy Merida Covered Member ID Merida Member ID Guarantor Name 11/17/2023 2 *SELF PAY* Nory Ootole Gary 11/17/[address] [facility] ON OR AFTER 10/23/20 (MEDICAID REPLACEMENT - HMO) Carole Vega [id number] Carole Vega 12/19/[address] [facility] ON OR AFTER 10/23/20 (MEDICAID REPLACEMENT - HMO) Carole Vega [id number] Carole Vega 02/03/2024 2 *SELF PAY* Nory Vega 02/03/[address] [facility] ON OR AFTER 10/23/20 (MEDICAID REPLACEMENT - HMO) Carole Vega [id number] Carole Vega 03/20/2024 2 *SELF PAY* Nory Xiang Vega 03/20/[address] [facility] ON OR AFTER 10/23/20 (MEDICAID REPLACEMENT - HMO) Carole Vega [id number] Carole Vega 07/10/2024 2 *SELF PAY* Nory Vega 07/10/[address] [facility] ON OR AFTER 10/23/20 (MEDICAID REPLACEMENT - HMO) Carole Vega [id number] Carole Vega Notes Date Note Type Note [...] N/V/D. YANG NAILS PA-C Attn: [address] [place], [address], [facility] 11/17/2023 15:25:37 12/19/2023 text/html 43 y/o F [...] were normal. INESSA Mehta Attn: [address] [place], [address], [facility] 12/19/2023 17:45:43 02/03/2024 text/html Carole Jensen o a 43 yo presenting for pap smear. [place]yenne at bedside for translation.Report s regular menstrual cycles every 28-30 days with light flow lasting 4 days changing pads/tampons every 12 hours on heaviest day. 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 OSCAR CHAND NP Attn: [address] [place], [address], [facility] 02/03/2024 17:30:37 03/20/2024 text/html 43 y/o F [...] SHe has no contraindication. INESSA Mehta Attn: [address] [place], [address], [facility] 03/20/2024 16:28:07 07/10/2024 text/html Carole is here [...] or other pain today.Visit today completed with supervisor diagnostic #[id number] Yu. JANNA CRYSTAL NP Attn: [address] [place], [address], [facility] 07/10/2024 16:46:13 OBGyn Episode Ob Episode Information Episode Created Date Number of Fetuses Patient Bloodtype Patient rh Status Prepregnancy Weight lbs Domestic Partner Domestic Partner Phone Father Name Health Sanitarian Status 06/17/19 15 1 129 CLOSED Fetus Data First Name Last Name Admitted to NICU Weight (g) Sex Living Outcome Pediatric Complications Fetus ID Race Codes Race Delivery Type [id number] Problems Problem Notes Problem Name Start Date End Date Resolution Snomed Code Not e Glucose tolerance test outsi de reference range 826482323 Gastroesophageal reflux disease 886238102 Vitamin D deficiency 97439848 Term delivered 38910 007 state 98070718 Cholo Calculation Initial Cholo Date Initial Exam [...] Type Weight in lbs Pre/Post Dialysis Refused 139.617141601754 BP Diastolic BP Location Tested BP Systolic BP Type 62 R arm 114 sitting Fetus Heart Rate Present A 145 Fetus Movement A Yes Comments Flowsheet Date 07/02/2014 Bernard Score Blood Edema Fundus Height Fundus Units Glucose Ketones Leukocytes Nitrite Labor Signs Protein Cervic Dilation Cervic Effacement Cervic Station 30 cm none Type Weight in lbs Pre/Post Dialysis Refused 143.296966828899 BP Diastolic BP Location Tested BP Systolic BP Type 68 L arm 100 sitting Fetus Heart Rate Present A 145 Present Fetus Movement A Yes Comments having a girl, will have margaux ural , 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, 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, 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 - MEJIA .35 mg start 3 weeks after delivery, stress to patient no intercourse Flowsheet Date 07/22/2014 Bernard Score Blood Edema Fundus Height Fundus Units Glucose Ketones Leukocytes Nitrite Labor Signs Protein Cervic Dilation Cervic Effacement Cervic Station neg none 40 cm none negative none neg Type Weight in lbs Pre/Post Dialysis Refused 149.675427608927 BP Diastolic BP Location Tested BP Systolic BP Type 62 R arm 114 sitting Fetus Heart Rate Present A 156 Present Fetus Movement A Yes Comments GIRL Flowsheet Date 09/09/2014 Bernard Score Blood Edema Fundus Height Fundus Units Glucose Ketones Leukocytes Nitrite Labor Signs Protein Cervic Dilation Cervic Effacement Cervic Station Type Weight in lbs Pre/Post Dialysis Refused 134.827557486271 BP Diastolic BP Location Tested BP Systolic [...] Domestic Partner Domestic Partner Phone Father Name Health Sanitarian Status 05/18/20 15 1 CLOSED Fetus Data First Name [...] Domestic Partner Domestic Partner Phone Father Name Health Sanitarian Status 09/10/19 15 1 CLOSED Fetus Data [...]
[2024-07-20 17:17] LABS: Basophils Percent Auto 0.3 % (0.2-1.2); Eosinophils Absolute Auto 0.2 K/mm3 (0-0.3); Eosinophils Percent Auto 2.4 % (0-4.4); Hematocrit 36.8 % (37.0-47.0); Hemoglobin 12.4 g/dL (12.0-15.0); Immature Granulocyte Absolute 0.01 K/mm3 (0.00-0.031); Immature Granulocyte Percent A 0.1 % (0-0.5); Lymphocytes Absolute Auto 2.36 K/mm3 (0.9-3.2); Lymphocytes Percent Auto 34.9 % (18.3-44.2); Mean Corpuscular HGB Conc 33.7 g/dl (32-36); Mean Corpuscular Volume 89.1 fl (80-100); Mean Platelet Volume 11.8 fl (7.4-10.4); Monocytes Absolute Auto 0.6 K/mm3 (0.1-0.6); Monocytes Percent Auto 8.9 % (2.6-8.5); Neutrophils Absolute Auto 3.6 K/mm3 (1.3-6.7); Neutrophils Percent Auto 53.4 % (45.5-73.1); Platelet Count Result 191 k/mm3 (150-375); Red Blood Count 4.13 M/mm3 (4.2-5.4); Red Cell Distribution Width 12.4 % (11.5-14.5); White Blood Count 6.8 K/mm3 (4.5-10.0)
[2024-07-20 17:18] LABS: Add Urine Microscopic? NO; Appearance Urine Clear (Clear); Bilirubin Urine Negative (Negative); Blood Urine Negative (Negative); Color Urine Yellow (Yellow); Glucose Urine UA Negative (Negative); Ketones Urine Trace mg/dL (Negative); Leukocyte Esterase Ur Negative LEU/UL (Negative); Nitrate Urine Negative (Negative); Protein Urine Negative (Negative); Specific Grav Ur 1.023 (1.001-1.035)
[2024-07-20 17:26] LABS: Alanine Aminotransferase 35 U/L (6-35); Albumin Level 4.3 g/dL (3.5-5.1); Alkaline Phosphatase 79 U/L (38-126); Anion Gap 11 mmol/L (4-12); Aspartate Amino Transferase 30 U/L (14-36); Bilirubin,Total 1.2 mg/dL (0.2-1.3); Blood Urea Nitrogen 6 mg/dL (7-17); Calcium 8.5 mg/dL (8.4-10.2); Carbon Dioxide 25 mmol/L (22-30); Chloride 103 mmol/L (98-107); Estimated Glomerular Filt Rate > 60; Glucose 112 mg/dL (65-110); Lipase 68 U/L (23-300); Potassium 3.7 mmol/L (3.4-5.0); Sodium 139 mmol/L (137-145)
[2024-07-20 17:30] VITALS: BP 106/70; PULSE 89; RESP 16; O2SAT 96
--- NOTE | 2024-07-20 17:49 | ED_ITS ---
HPI - Abdominal Pain General Chief Complaint: Abdominal Pain Stated Complaint: lower quad pain Time Seen by Provider: 07/20/24 16:40 History of Present Illness HPI narrative: Patient is a 44-year-old female who presents to the ER with left lower quadrant pain. She reports the pain starts at her umbilicus and goes towards her left groin. Patient endorses the pain as ?burning. She reports the pain is been going on for a long time. When she came to the ER last time she was discharged home with oral antibiotics, which she completed. She reports the pain got better for a little while but then returned and is worse, but is intermittent. 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 She denies any urinary symptoms or recent fevers. Related Data Allergies Allergy/AdvReac Type Severity Reaction Status Date / Time No Known Allergies Allergy Verified 07/10/24 16:40 Review of Systems 2 Review of Systems: All systems reviewed & are unremarkable except as noted in HPI and below Exam 2 Narrative: GENERAL: Well appearing, well-nourished, non-toxic, in no acute distress. HEAD: Normocephalic, atraumatic. NECK: Supple. No adenopathy, no masses. RESPIRATORY: Airway patent, respirations nonlabored. Clear to auscultation bilaterally, no rales, rhonchi, wheezing. CARDIOVASCULAR: Regular rate and rhythm without murmurs, rubs, or gallops. Peripheral pulses 2+ and equal bilaterally. ABDOMINAL: Soft, tender in LUQ and RLQ, but pt is signficantly worse with palpation to her LLQ, nondistended, no hepatosplenomegaly. Normoactive BS. MUSCULOSKELETAL: Moves all extremities. Strength/ROM intact without gross deformities. SKIN: Warm, dry, normal color. No rashes. NEURO: A&O X3. Speech clear. Cranial nerves II-XII intact. No ataxic movements. PSYCHIATRIC: Appropriate mood and affect. Normal interaction. Course Vital Signs Vital signs: Vital Signs Temperature 36.5 C 07/20/24 15:55 Pulse Rate 90 07/20/24 15:55 Respiratory Rate 20 07/20/24 15:55 Blood Pressure 107/77 07/20/24 15:55 Pulse Oximetry 97 07/20/24 15:55 Oxygen Delivery Room Air 07/20/24 15:55 Temperature 36.5 C 07/20/24 15:55 Pulse Rate 89 07/20/24 18:30 Respiratory Rate 16 07/20/24 18:30 Blood Pressure 110/57 L 07/20/24 18:30 Pulse Oximetry 98 07/20/24 18:30 Oxygen Delivery Room Air 07/20/24 15:55 MDM - Abdominal Pain MDM Narrative Medical decision making narrative: Patient is a 44-year-old female who presents to the ER with left lower quadrant pain. She reports the pain starts at her umbilicus and goes towards her left groin. Patient endorses the pain as ?burning. She reports the pain is been going on for a long time. When she came to the ER last time she was discharged home with oral antibiotics, which she completed. She reports the pain got better for a little while but then returned and is worse, but is intermittent. 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 She denies any urinary symptoms or recent fevers. Patient is wondering if this pain is related to STDs. She was educated that diverticulitis is not caused by an STD, but STD testing was offered for patient. Labs Ordered: CBC, CMP Imaging Ordered: CT abdomen pelvis Medications Ordered: Toradol 15 mg IV Results: Patient's CT scan indicates 1. Bilateral lung ground glass appearance suggestive of atelectasis versus pneumonia. Clinical correlation advised. 2. No definite evidence of diverticulitis. 3. Constipation. Diagnosis: Abdominal pain, constipation Patient Education/Shared MDM: Results of CT scan shared with patient. She endorses mild improvement following medication administration. It is believed patient does not have pneumonia as she has been coughing, wheezing, short of breath, or febrile, and she was just on antibiotics. Patient strongly advised to maintain hydration status upon discharge and follow-up with her PCP as soon as possible. She will be discharged home with a prescription for MiraLax and Colace. Strict return precautions provided. Patient verbalized understanding is in agreement with plan. Vital signs stable at time of discharge. All questions answered. Differential Diagnosis Differential diagnosis: Likely abdominal pain, diverticulitis, gastroenteritis and small bowel obstruction Lab Data Attestation: I reviewed the patient's lab results. 07/20/24 17:08 07/20/24 17:08 Labs: Lab Results 07/20/24 07/20/24 Range/Units 17:08 17:11 WBC 6.8 (4.5-10.0) K/mm3 RBC 4.13 L (4.2-5.4) M/mm3 Hgb 12.4 (12.0-15.0) g/dL Hct 36.8 L (37.0-47.0) % MCV 89.1 (80-100) fl MCH 30.0 (26-34) pg MCHC 33.7 (32-36) g/dl RDW 12.4 (11.5-14.5) % Plt Count 191 (150-375) k/mm3 MPV 11.8 H (7.4-10.4) fl Immature Gran % (Auto) 0.1 (0-0.5) % Neut % (Auto) 53.4 (45.5-73.1) % Lymph % (Auto) 34.9 (18.3-44.2) % [place] % (Auto) 8.9 H (2.6-8.5) % Eos % (Auto) 2.4 (0-4.4) % Baso % (Auto) 0.3 (0.2-1.2) % Lymph # (Auto) 2.36 (0.9-3.2) K/mm3 [place] # (Auto) 0.6 (0.1-0.6) K/mm3 Eos # (Auto) 0.2 (0-0.3) K/mm3 Baso # (Auto) 0.0 (0.0-0.1) K/mm3 Abs Immat Gran (auto) 0.01 (0.00-0.031) K/mm3 Absolute Neuts (auto) 3.6 (1.3-6.7) K/mm3 Absolute Nucleated RBC 0.000 (0.0-0.012) K/mm3 Nucleated RBC % 0.0 (0.0-0.2) % Sodium 139 (137-145) mmol/L Potassium 3.7 (3.4-5.0) mmol/L Chloride 103 (98-107) mmol/L Carbon Dioxide 25 (22-30) mmol/L Anion Gap 11 (4-12) mmol/L BUN 6 L D (7-17) mg/dL Creatinine 0.48 L (0.7-1.0) mg/dL Estim Creat Clear Calc Not Reportable Estimated GFR > 60 (59 - ) Glucose 112 H (65-110) mg/dL Calcium 8.5 (8.4-10.2) mg/dL Total Bilirubin 1.2 (0.2-1.3) mg/dL AST 30 (14-36) U/L ALT 35 (6-35) U/L Alkaline Phosphatase 79 (38-126) U/L Total Protein 7.0 (6.3-8.2) g/dL Albumin 4.3 (3.5-5.1) g/dL Lipase 68 (23-300) U/L Urine Color Yellow (Yellow) Urine Appearance Clear (Clear) Urine pH 6.0 (5.0-9.0) Ur Specific [place] 1.023 (1.001-1.035) Urine Protein Negative (Negative) mg/dL Urine Glucose (UA) Negative (Negative) mg/dL Urine Ketones Trace H (Negative) mg/dL Ur Blood (Man) Negative (Negative) Urine Nitrate Negative (Negative) Urine Bilirubin Negative (Negative) Urine Urobilinogen 1.0 (<2.0) mg/dL Leukocyte Esterase Rfl Negative (Negative) LOIDA/UL C. trachomatis (PCR) Pending N. gonorrhoeae (PCR) Pending T. vaginalis (PCR) Pending Imaging Data Radiologist's impression: ITS Impressions Abdomen/Pelvis CT 07/20/24 19:20 IMPRESSION: 1. Bilateral lung groundglass appearance suggestive of atelectasis versus pneumonia. Clinical correlation advised. 2. No definite evidence of diverticulitis. 3. Constipation. Discharge Plan Discharge Clinical Impression: Abdominal pain, Constipation Patient Disposition: Home, Self-Care Condition: Stable Instructions: Antibiotic Form, Constipation (DC), Abdominal Pain (ED) Additional Instructions: Please return to the ER with any worsening symptoms. Follow-up with primary care provider as soon as possible. Take all medications as prescribed. Do not forget to drink lots of water. Patient Language: Estonian Prescriptions: New docusate sodium [Col-Rite] 100 mg capsule 100 mg PO BID Qty: 20 0RF polyethylene glycol 3350 [ClearLax] 17 gram/dose powder 17 g PO BID Qty: 238 0RF No Action prednisone 50 mg tablet 50 mg PO DAILY Qty: 5 0RF amoxicillin-pot clavulanate 875-125 mg tablet 1 tablet PO Q12H 7 Days Qty: 14 0RF Follow-up/Referrals: PHYSICIAN NOT ON STAFF,NONSTAFF [Non-Staff] - Thomas Fonseca MD [Physician] - (primary care) Time of Disposition: 19:55
[2024-07-20 18:30] VITALS: BP 110/57; PULSE 89; RESP 16; O2SAT 98
[2024-07-20] MEDS: SODIUM CHLORIDE 0.9% IV 1,000 ML 999 ML IV CONT (18:57)
[2024-07-20] MEDS: KETOROLAC 15 MG/ML VIAL (*BKC) IV PUSH (18:57)
[2024-07-20 20:00] VITALS: BP 140/85; PULSE 86; RESP 18; O2SAT 100
[2024-07-20] MEDS: SENNOSIDES 8.6 MG TABLET PO (20:04)
[2024-07-20 20:53] LABS: Trichomonas Vag PCR NOT DETECTED (NOT DETECTE)
[2024-07-20 21:15] VITALS: BP 140/85; PULSE 86; RESP 18; O2SAT 100
[2024-07-20 21:16] LABS: Chlamydia trachomatis NOT DETECTED (NOT DETECTE); Neisseria gonorrhoeae PCR NOT DETECTED (NOT DETECTE)
== END 2024-07-20 20:10 | disposition home or self-care (01) ==
PROVIDERS: Family Medicine; Emergency Provider Registered Nurse; PCP Registered Nurse
DX: K59.00 Constipation, unspecified (principal)
CPT/HCPCS: 36415; 74177; 80053; 81003; 83690; 85025; 87491; 87591; 87661; 96361; 96374; 99284; A9270; J1885; J7030; Q9967